=== PATIENT | female | born 1940 | race Caucasian/White ===

== ENCOUNTER 2019-11-21 05:08 | Inpatient (IN) | payer MEDICARE, OTHER, SELFPAY ==
[2019-11-21] VITALS (8 sets, daily range): BP systolic 141–170; BP diastolic 40–111; PULSE 74–88; RESP 16–20; TEMP 36.7–37.1; O2SAT 93–98; BMI 30.4; BMI 30.5
--- NOTE | 2019-11-21 03:00 | NURSING ---
Report provided by ED nurse from [facility] including negative COVID test done on 11/04, not rechecked by that facility. CXR showing BLL pneumonia, chest CT negative for PE, EKG NSR. Plts drawn there reported at 12,000. On 1L NC at facility, transport reported 3L NC, she is currently on 2L NC.
--- NOTE | 2019-11-21 05:45 | PCM.HP.STD ---
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 Patient presented to [facility] ED on 11/20/2019 and was transferred to our hospital because her platelet was 12,000 and hospitalist at [facility] was uncomfortable taking care of patient. 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 Schaefer who rounds at [facility]. Dr. Schaefer accepted to see patient in consult. In regards to patient's shortness of breath, patient was admitted at [facility] on 05 November 2019 and was discharged on 08 November 2019. She was admitted for pneumonia. Covid test during the presentation was negative. After discharge patient reported that she has stayed entirely home. However she follow-up with her PCP for after hospital discharge. She reported as soon as her discharge antibiotics was completed her shortness of breath came back. Associated with symptoms is nonproductive cough. She reported she is supposed to follow-up with a ice cream freezer assistant on November 26, 2019. On this presentation emergency department doctor at [facility] report that CAT scan showed bilateral consolidation which is not different from on a previous admission. PE was negative. Her BMP was unremarkable. Sodium was 138; potassium 4.1; chloride 103; CO2 25; BUN 17 and creatinine 0.7. Her glucose was 115. Hemoglobin at outside hospital reportedly was 10.2, white count was 7000 and a platelet was 12,000. Further she reports dark tarry stools for which her PCP put her on PPI. She reports a history of bleeding ulcer. Past Medical History Medical History: Medical History (Last Updated 11/21/19 @ 06:[address] Mirza Shi MD) Autoimmune hemolytic anemia (Acute) D59.1 Allergies Sulfa (Sulfonamide Antibiotics) Allergy (Verified 01/24/17 22:36) Hives ibuprofen Adverse Reaction (Verified 01/24/17 22:36) IT AFFECTS MY KIDNEYS Home Medications: Ambulatory Orders Medication Instructions Recorded Aspirin 81 mg PO DAILY 08/26/16 Calcium Carbonate [Calcium] 600 mg PO BID 08/26/16 Cyanocobalamin (Vitamin B-12) 2,500 mcg SL DAILY 08/26/16 [Vitamin B-12] Fluocinonide-E 0.05% Cream 1 dose TOPICAL DAILY PRN 08/26/16 Folic Acid 0.8 mg PO DAILY 08/26/16 Levothyroxine Sodium 125 mcg PO DAILY 08/26/16 Lisinopril [Prinivil] 5 mg PO DAILY 08/26/16 Omeprazole [Prilosec] 20 mg PO DAILY 08/26/16 Pramipexole Di-HCl [Mirapex] 0.125 mg PO DAILY PRN PRN 08/26/16 Temovate Solution 1 dose TOPICAL DAILY PRN 08/26/16 Trazodone HCl 100 mg PO QHS 08/26/16 predniSONE tablet 15 mg PO DAILY@0800 08/26/16 Acetaminophen [Acetaminophen ER] 1,300 mg PO Q8H PRN 01/24/17 Clobetasol Propionate/Emoll 50 gm TP DAILY 01/24/17 [Clobetasol Emollnt 0.05% Foam] Cyanocobalamin [Vitamin B12] 1,000 mcg IM QMONTH 01/24/17 Famciclovir [Famvir] 500 mg PO TID 01/24/17 Hydrocodone/Acetaminophen [[place] 1 each PO Q4H PRN PRN 01/24/17 5-325 Tablet] Ondansetron [Zofran Odt] 8 mg PO Q8H PRN PRN #10 tab 01/24/17 ALPRAZolam 0.25 mg PO TID PRN PRN 11/21/19 Amlodipine Besylate 5 mg PO DAILY 11/21/19 Atorvastatin Calcium 20 mg PO QHS 11/21/19 Calcium Carbonate 600 mg PO DAILY 11/21/19 Cefuroxime Axetil 250 mg PO BID 11/21/19 Ferrous Sulfate 325 mg PO DAILY 11/21/19 Melatonin 10 mg PO QHS 11/21/19 Probiotic Digestive Care 1 tab PO DAILY 11/21/19 Vitamin D3 125 mcg PO DAILY 11/21/19 Surgical History: hysterectomy, total knee arthroplasty, - - hiatal hernia repair Psychiatric History: No pertinent psych hx LANGUAGE ASSISTANT History: No pertinent LANGUAGE ASSISTANT history Smoking Status: Never smoker - *Family History Maternal History Items: Dementia Paternal History Items: Cancer - lung cancer Review of Systems Constitutional: Denies: Chills, Fever, Weight Change HEENT: Denies: Head Aches, Sinus Congestion, Sinus Drainage Cardiovascular: Denies: Chest Pain, Palpitations Respiratory: Reports: Cough, Shortness of Breath. Denies: Sputum production Gastrointestinal: Denies: Abdominal Pain, Nausea, Vomiting Genitourinary: Denies: Dysuria Musculoskeletal: Denies: Joint Pain, Joint Tenderness Skin: Denies: Rash, Wounds Neurological: Denies: Numbness, Tingling, Focal weakness Psychiatric: Denies: Anxiety, Depression, Homicidal Ideations, Suicidal Ideations Hematologic/ Lymphatic: Denies: Easy Bruising, Easy Bleeding VTE Information - Inpt Only VTE Present on Admission: No VTE Mechan Device Prophylaxis: SCD's VTE Pharm Prophylaxis ordered?: No Patient Problems: Active and Suspected Problems (Last Updated 11/21/19 @ 06:[address] Mirza Shi MD) Pneumonia (Acute) Autoimmune hemolytic anemia (Acute) - Physical Exam Vitals/I&O's: Weight: 75.659 kg Body Mass Index (BMI) 30.4 General: Alert, Oriented x3, Cooperative, - - Patient with profuse cough during examination. HEENT: Atraumatic, PERRLA, EOMI, Normocephalic Neck: Supple, No JVD, Negative Carotid Bruits Lungs: Clear to auscultation, Normal air movement Cardiovascular: Regular rate, Regular Rhythm, Normal S1, Normal S2, No murmurs Abdomen: Bowel Sounds Present, Soft, Non Tender Extremities: No edema, Capillary Refill Less than 3 Seconds Skin: No rashes, No breakdown Musculoskeletal: No Tenderness to Palpation of Joints or Extremities Neurological: Cranial nerves II-XII grossly intact Psych/Mental Status: Normal Affect, Appropriate Laboratory Results 11/21/19 05:30: COVID-19 (CHARLEEN) Pending Current Medications Acetaminophen (Tylenol) 650 mg PO Q6H PRN PRN PRN Reason: Pain Score 1-10/Temp > 100.7 F Albuterol Sulfate (Ventolin Aerosols) 2.5 mg INHALATION Q2H PRN PRN PRN Reason: Shortness of Breath/Wheezing Vancomycin IV Pharmacy to Dose (1 ea/ Sodium Chloride) 500 mls @ 250 mls/hr IV X1 PRN; Protocol PRN Reason: Rx to Dose Cefepime HCl 2 gm/ Sodium (Chloride) 100 mls @ 200 mls/hr IV Q8 DANIELLE Ondansetron HCl (Zofran) 4 mg IV Q8H PRN PRN PRN Reason: NAUSEA/VOMITING Assessment/Plan All Active Problems (Last Updated 11/21/19 @ 06:[address] 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 Community-acquired pneumonia Likely gram-positive or gram-negative Patient received ceftriaxone and azithromycin at outside hospital ED. Because of persistent pneumonia discussed with emergency department doctor to give patient vancomycin. Will order vancomycin and cefepime. Pneumonia antigen and Legionella urine antigen ordered. Albuterol PRN We will get a rapid covid screen. If rapid covid screen is negative okay to transfer from covid cohort unit as imaging is not classic for covid Will consult Dr. Rosas, ice cream freezer assistant for persistent pneumonia. Peptic ulcer disease Protonix ordered Trend CBC. If stable patient to follow-up with PCP on discharge. Autoimmune hemolytic anemia Hemoglobin of 12,000 at [facility] ED. Repeat CBC. Patient follows up with Dr. Schaefer. Will consult Dr. Schaefer DVT prophylaxis No chemical thromboprophylaxis at this time because of thrombocytopenia SCD ordered. Inpatient E&M: 42508 Init Hosp L3
[2019-11-21 07:03] LABS: Absolute Lymphocyte Count 0.65 X10^3/uL (0.83-4.51); Absolute Neutrophil Count 5.8 X10^3/uL (2.0-7.7); Basophil# 0.02 X10^3/uL; Basophil% 0.3 % (0-1); Eosinophil# 0.06 X10^3/uL; Eosinophils% 0.8 % (0-5); Hematocrit 23.7 % (37-47); Hemoglobin 8.6 g/dL (12.0-15.0); Lymphocyte # 0.65 X10^3/ul (4.0); Mean Corp Hgb Conc 36.3 g/dL (32-36); Mean Corpuscular Hgb 39.1 pg (27.0-32.0); Mean Corpuscular Volume 107.7 fL (81-99); Mean Platelet Vol. 12.5 fl (6.2-12.0); Monocyte# 0.68 X10^3/uL; Monocyte% 9.4 % (0-10); NRBC Flagged by Analyzer 0 % (0-5); Neutrophil # 5.78 X10^3/uL (2.7-7.7); Neutrophil % 80.1 % (47-70); POSITIVE COUNT YES; POSITIVE MORPHOLOGY YES; Platelet Count 8 K/mm3 (150-450); White Blood Count 7.2 K/mm3 (4.4-11.0)
[2019-11-21 07:06] LABS: Anion Gap 5 (5-15); BUN 13 mg/dL (7-18); BUN/Creat Ratio 20.2 RATIO (10-20); Calcium,Total 7.6 mg/dL (8.5-10.1); Chloride 107 mmol/L (98-107); Creatinine, Serum 0.64 mg/dL (0.55-1.02); EST Glomerular Filtration Rate 95 mL/min (>60); Est Glom Filt Rate - Afr Amer 115 mL/min (>60); Estimated Creatinine Clearance 37.26 ml/min; Glucose 99 mg/dL (74-106); Potassium 3.7 mmol/L (3.5-5.1); Sodium Level 140 mmol/L (136-145)
[2019-11-21 07:43] LABS: Differential Indicated SCAN CRITERIA MET; Platelet Estimate MKD DEC (ADEQ)
[2019-11-21 07:44] LABS: Anisocytosis RARE; Hypochromasia 1+
--- NOTE | 2019-11-21 07:55 | PCM.CONS.B ---
Problem List (1) Autoimmune hemolytic anemia Status: Chronic (2) Acute idiopathic thrombocytopenic purpura Status: Acute (3) Anemia Status: Acute Qualifiers: Anemia type: unspecified type Qualified Code(s): D64.9 - Anemia, unspecified Comment: Bleeding secondary to thrombocytopenia - Consult Date of Consult: 11/21/[address] Shi for patient with history of autoimmune hemolytic anemia and thrombocytopenia. My final recommendation will be communicated through electronic medical record and also to the ICU team. - Reason for Consult History of present illness The patient is a 78 year old F with a significant history of autoimmune hemolytic anemia who presents with 2 to 3 weeks history of shortness of breath. Recently discharged home from pulmonary and hospital last week for pneumonia. She was on multiple antibiotic including vancomycin and Rocephin for treatment of her pneumonia. She was discharged home and subsequently presented to [facility] ED on 11/20/2019 and was transferred to our hospital because her platelet was 12,000 and hemoglobin of 10.2. Her COVID test last month was negative After discharge patient reported that she has stayed entirely home. However she follow-up with her PCP for after hospital discharge. She reported as soon as her antibiotics was completed her shortness of breath came back. Associated with symptoms is non-productive cough. No hemoptysis but last week he also complained of epigastric discomfort along with passing dark tarry stool. She has shortness of breath with exertion. Denies jaundice or petechiae rash. At her presentation to [facility], her CAT scan showed bilateral consolidation which is not different from on a previous admission. PE was negative. Her BMP was unremarkable. Sodium was 138; potassium 4.1; chloride 103; CO2 25; BUN 17 and creatinine 0.7. Her glucose was 115. Hemoglobin at outside hospital reportedly was 10.2, white count was 7000 and a platelet was 12,000. Further she reports dark tarry stools for which her PCP put her on PPI. She reports a history of bleeding ulcer. Past Medical History Medical History: Medical History (Last Updated 11/21/19 @ 06:[address] Mirza Shi MD) Autoimmune hemolytic anemia (Acute) D59.1 Allergies Sulfa (Sulfonamide Antibiotics) Allergy (Verified 01/24/17 22:36) Hives ibuprofen Adverse Reaction (Verified 01/24/17 22:36) IT AFFECTS MY KIDNEYS Home Medications: Ambulatory Orders Medication Instructions Recorded Aspirin 81 mg PO DAILY 08/26/16 Calcium Carbonate [Calcium] 600 mg PO BID 08/26/16 Cyanocobalamin (Vitamin B-12) 2,500 mcg SL DAILY 08/26/16 [Vitamin B-12] Fluocinonide-E 0.05% Cream 1 dose TOPICAL DAILY PRN 08/26/16 Folic Acid 0.8 mg PO DAILY 08/26/16 Levothyroxine Sodium 125 mcg PO DAILY 08/26/16 Lisinopril [Prinivil] 5 mg PO DAILY 08/26/16 Omeprazole [Prilosec] 20 mg PO DAILY 08/26/16 Pramipexole Di-HCl [Mirapex] 0.125 mg PO DAILY PRN PRN 08/26/16 Temovate Solution 1 dose TOPICAL DAILY PRN 08/26/16 Trazodone HCl 100 mg PO QHS 08/26/16 predniSONE tablet 15 mg PO DAILY@0800 08/26/16 Acetaminophen [Acetaminophen ER] 1,300 mg PO Q8H PRN 01/24/17 Clobetasol Propionate/Emoll 50 gm TP DAILY 01/24/17 [Clobetasol Emollnt 0.05% Foam] Cyanocobalamin [Vitamin B12] 1,000 mcg IM QMONTH 01/24/17 Famciclovir [Famvir] 500 mg PO TID 01/24/17 Hydrocodone/Acetaminophen [[place] 1 each PO Q4H PRN PRN 01/24/17 5-325 Tablet] Ondansetron [Zofran Odt] 8 mg PO Q8H PRN PRN #10 tab 01/24/17 ALPRAZolam 0.25 mg PO TID PRN PRN 11/21/19 Amlodipine Besylate 5 mg PO DAILY 11/21/19 Atorvastatin Calcium 20 mg PO QHS 11/21/19 Calcium Carbonate 600 mg PO DAILY 11/21/19 Cefuroxime Axetil 250 mg PO BID 11/21/19 Ferrous Sulfate 325 mg PO DAILY 11/21/19 Melatonin 10 mg PO QHS 11/21/19 Probiotic Digestive Care 1 tab PO DAILY 11/21/19 Vitamin D3 125 mcg PO DAILY 11/21/19 Surgical History: hysterectomy, total knee arthroplasty, - - hiatal hernia repair Psychiatric History: No pertinent psych hx 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 Denies: Sputum production Gastrointestinal: Denies: Abdominal Pain, Nausea, Vomiting Genitourinary: Denies: Dysuria Musculoskeletal: Denies: Joint Pain, Joint Tenderness Skin: Denies: Rash, Wounds Neurological: Denies: Numbness, Tingling, Focal weakness Psychiatric: Denies: Anxiety, Depression, Homicidal Ideations, Suicidal Ideations Hematologic/ Lymphatic: Denies: Easy Bruising, Easy Bleeding VTE Information - Inpt Only VTE Present on Admission: No VTE Mechan Device Prophylaxis: SCD's VTE Pharm Prophylaxis ordered?: No Patient Problems: Active and Suspected Problems (Last Updated 11/21/19 @ 06:[address] Mirza Shi MD) Pneumonia (Acute) Autoimmune hemolytic anemia (Acute) - Physical Exam Vitals/I&O's: Weight: 75.659 kg Body Mass Index (BMI) 30.4 Laboratory Results - last 24 hr 11/21/19 11/21/19 11/21/19 05:30 06:38 06:38 WBC 7.2 RBC 2.20 L Hgb 8.6 L Hct 23.7 L MCV 107.7 H MCH 39.1 H MCHC 36.3 H RDW Std Deviation Not Reportable RDW Coeff of Isis Not Reportable Plt Count 8 L* MPV 12.5 H Immature Gran % (Auto) 0.400 Neut % (Auto) 80.1 H Lymph % (Auto) 9.0 L [place] % (Auto) 9.4 Eos % (Auto) 0.8 Baso % (Auto) 0.3 Absolute Neuts (auto) 5.8 Absolute Lymphs (auto) 0.65 L Nucleated RBC % 0 Diff Path Review May foll Platelet Estimate MKD DEC Hypochromasia 1+ Anisocytosis RARE Sodium 140 Potassium 3.7 Chloride 107 Carbon Dioxide 28.0 Anion Gap 5 BUN 13 Creatinine 0.64 Estim Creat Clear Calc 37.26 Est GFR (MDRD) Af Amer 115 Est GFR (MDRD) Non-Af 95 BUN/Creatinine Ratio 20.2 H Glucose 99 Calcium 7.6 L COVID-19 (CHARLEEN) Not Detected Laboratory Results 11/21/19 05:30: COVID-19 (CHARLEEN) Pending Current Medications Acetaminophen (Tylenol) 650 mg PO Q6H PRN PRN PRN Reason: Pain Score 1-10/Temp > 100.7 F Albuterol Sulfate (Ventolin Aerosols) 2.5 mg INHALATION Q2H PRN PRN PRN Reason: Shortness of Breath/Wheezing Vancomycin IV Pharmacy to Dose (1 ea/ Sodium Chloride) 500 mls @ 250 mls/hr IV X1 PRN; Protocol PRN Reason: Rx to Dose Cefepime HCl 2 gm/ Sodium (Chloride) 100 mls @ 200 mls/hr IV Q8 DANIELLE Ondansetron HCl (Zofran) 4 mg IV Q8H PRN PRN PRN Reason: NAUSEA/VOMITING Assessment/Plan All Active Problems (Last Updated 11/21/19 @ 06:[address] Mirza Shi MD) Anemia (Acute) Acute ITP (Acute) Pneumonia (Acute) Autoimmune hemolytic anemia (Acute) 78-year-old female with history of autoimmune hematic anemia and acute ITP ending with bilateral pneumonia and GI bleeding apply secondary to thrombocytopenia. Recommendations -Check PT/PTT, reticulocyte, liver function, indirect bilirubin, haptoglobin & Direct Hernan -Start IVIG 400mg/kg ideal body weight IV daily x 5 - T & C 2 unit pheresis platelets for transfusion this morning. -Continue folic acid 1mg daily -Consult GI for GI bleeding? -Continue PPI cc: Dr. Kati Schaefer, Dr. Stanislav Crowe, Dr. Merrill Car
[2019-11-21 08:55] LABS: Immature Platelet Fraction 14.2 % (1.0-7.9); Platelet Count 7 K/mm3 (150-450); RET-HE 31.7 pg (30-35); Reticulocyte Count 2.79 % (0.5-1.5)
[2019-11-21 09:08] LABS: AST(SGOT) 20 U/L (15-37); Alanine Aminotransfer ALT/SGPT 8 U/L (13-56); Albumin, Serum 2.2 g/dL (3.2-5.0); Alkaline Phosphatase 116 U/L (45-117); Globulin 3.1 g/dL (2.2-4.2); LDH 324 U/L (84-246); Protein, Total 5.3 g/dL (6.4-8.2)
[2019-11-21 09:28] LABS: International Normalized Ratio 1.1; Prothrombin Time (Protime)PT. 13.5 SECONDS (11.7-14.9)
[2019-11-21 09:29] LABS: Partial Thromboplast Time 24.6 Seconds (24.1-36.2)
[2019-11-21] MEDS: amLODIPine 5 MG Tablet PO (09:31)
[2019-11-21] MEDS: Pantoprazole Sodium 40 MG Tablet PO (09:31)
[2019-11-21] MEDS: Ferrous Sulfate 325 MG Tablet PO (09:31)
[2019-11-21] MEDS: Calcium (Elemental) 500 MG Tablet PO (09:31)
[2019-11-21] MEDS: guaiFENesin 1,200 MG Tablet 1200 MG PO (09:31)
--- NOTE | 2019-11-21 10:45 | PCM.RX.CS ---
Consult Pharmacy has been consulted to manage selected antiobiotic: Vancomycin Type of Consult: New start Suspected Infection: Pneumonia Prior Doses of Antibiotics Received/Current Regimen: received 1000mg IV x1 at 02:25 this morning at previous hospital Labs: Sodium 140 mmol/L (136-145) 11/21/19 06:38 Potassium 3.7 mmol/L (3.5-5.1) 11/21/19 06:38 Chloride 107 mmol/L (98-107) 11/21/19 06:38 Carbon Dioxide 28.0 mmol/L (21.0-32.0) 11/21/19 06:38 Anion Gap 5 (5-15) 11/21/19 06:38 BUN 13 mg/dL (7-18) 11/21/19 06:38 Creatinine 0.64 mg/dL (0.55-1.02) 11/21/19 06:38 Est GFR (MDRD) Af Amer 115 mL/min (>60) 11/21/19 06:38 Est GFR (MDRD) Non-Af 95 mL/min (>60) 11/21/19 06:38 BUN/Creatinine Ratio 20.2 RATIO (10-20) H 11/21/19 06:38 Glucose 99 mg/dL (74-106) 11/21/19 06:38 Microbiology: Microbiology 11/21/19 06:55 Urine Catheter - Catheter Streptococcus pneumoniae Antigen (M - Final 11/21/19 06:55 Urine Catheter - Catheter Legionella Antigen - Final Weight used for dosin.7 kg Estimated Creatinine Clearance: 56ml/min Goal Trough: 15-20 mcg/mL Pharmacy Plan for Drug Dosing: Will continue with 750mg IV q12h starting 12 hours after the 1000mg dose that was given at the previous hospital. Will check a trough level before the 4th total dose tomorrow afternoon. The patient's CrCl of 56ml/min was calculated using an adjusted body weight of 60.3kg. Pharmacy Service will continue to monitor and adjust dosing as required. Follow-Up Labs: Trough Vancomycin Labs to be done on [date and time ordered]: 11/21 13:30
--- NOTE | 2019-11-21 11:03 | NT.THERAPY_ITS ---
Nutrition Therapy Report - History Current diet / nutrition support order:: regular diet - Anthropometric Measurements Height:: 5 ft 2 in Weight:: 75.659 kg Body Mass Index (BMI):: 30.4 - Relevant Labs Relevant Labs:: RBC 2.20 M/mm3 (4.2-5.4) L 11/21/19 06:38 Hgb 8.6 g/dL (12.0-15.0) L 11/21/19 06:38 Hct 23.7 % (37-47) L 11/21/19 06:38 MCV 107.7 fL (81-99) H 11/21/19 06:38 MCH 39.1 pg (27.0-32.0) H 11/21/19 06:38 MCHC 36.3 g/dL (32-36) H 11/21/19 06:38 Plt Count 8 K/mm3 (150-450) L* 11/21/19 06:38 MPV 12.5 fl (6.2-12.0) H 11/21/19 06:38 Neut % (Auto) 80.1 % (47-70) H 11/21/19 06:38 Lymph % (Auto) 9.0 % (19-41) L 11/21/19 06:38 Absolute Lymphs (auto) 0.65 X10^3/uL (0.83-4.51) L 11/21/19 06:38 Immature Plt Fraction 14.2 % (1.0-7.9) H 11/21/19 08:36 Retic Count 2.79 % (0.5-1.5) H 11/21/19 08:36 BUN/Creatinine Ratio 20.2 RATIO (10-20) H 11/21/19 06:38 Calcium 7.6 mg/dL (8.5-10.1) L 11/21/19 06:38 ALT 8 U/L (13-56) L 11/21/19 08:36 Lactate Dehydrogenase 324 U/L (84-246) H 11/21/19 08:36 Total Protein 5.3 g/dL (6.4-8.2) L 11/21/19 08:36 Albumin 2.2 g/dL (3.2-5.0) L 11/21/19 08:36 - Assessment Food / Nutrition-Related History:: Spoke w/ pt via room phone- currently in isolation precautions. 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 Was hospitalized from 11/04-11/07 per H&P. States she normally eats well and does not follow a special diet at home. UBW 174# w/ recent wt loss r/t acute illness. CBW 166.8#- 4% wt loss x 2 weeks, significant for acute malnutrition. - Nutrition Diagnosis Problem / Etiology / Signs & Symptoms (PES):: Severe, acute malnutrition related to inadequate protein-energy intake during acute illness as evidenced by estimated PO intake meeting <50% of pt's estimated nutritional needs for greater than 5 days, 7.2#/4% wt loss x 2 weeks Evidence of Malnutrition Exists:: Yes Severe PCM:: Acute Illness - Nutrition Intervention Nutrition Prescription:: [id number] calories/day, 65-75 g protein/day - Food / Nutrient Delivery Interventions Summary of nutrition intervention:: pt agreeable to Ensure BID w/ meals; would prefer chocolate or strawberry. Will continue regular diet as tolerated. Nutrition support ordered as / adjusted to:: ensure enlive 240mL w/ breakfast and dinner; continue regular diet. Nutrition education provided?: No - MNT Monitoring Further MNT monitoring and evaluation required?: Yes MNT Follow-up in:: 3-5 days
--- NOTE | 2019-11-21 11:41 | PCM.DC.SUM ---
Discharge Date and Diagnosis - Problem List Patient Problems: Active and Suspected Problems (Last Updated 11/21/19 @ 08:15 by Blanka Tuesday) Pneumonia (Acute) Acute idiopathic thrombocytopenic purpura (Acute) Date of Admission: 11/21/19 Date of Discharge: 11/21/19 - Primary Discharge Diagnosis Acute Problems: Active Problems (Last Updated 11/21/19 @ 08:15 by Blanka Tuesday) Pneumonia (Acute) Acute idiopathic thrombocytopenic purpura (Acute) - Secondary Discharge Diagnosis Chronic Problems: Chronic Problems (Last Updated 11/21/19 @ 08:15 by Blanka Tuesday) Autoimmune hemolytic anemia (Chronic) Hospital Course and Treatment Operations: None Procedures: None Summary of Care Provided: The patient is a 78 year old F presents to [facility] with increasing shortness of breath. Patient was admitted in October with pneumonia and was discharged. Patient was feeling short of breath and then sent back to their emergency room where he had pneumonia. Patient was also found to have platelets of 12,000. Dr. Schaefer, of hematology, was contacted and agreed to see the patient in consultation. Patient was transferred here to continue with treatment and for evaluation of the thrombocytopenia. Patient had lab work today that showed platelets down to 8000. Dr. Schaefer was concern for ITP and recommended IVIG, and a 2 pack of platelets. He did not recommend steroids at this time. Patient was complaining of melena and he advised GI consultation. Since we do not have gastroenterology at this facility, general surgery was contacted and given the complexity with the ITP felt the patient should be transferred to a tertiary facility. I spoke with the patient and then with her daughter over the phone about these recommendations and they want the patient transferred to a [facility] facility. I recommended [facility] over the main campus. They agreed and I spoke with the accepting physician, , who agreed to accept the patient at [facility]. Patient has remained stable though her hemoglobin dropped from 10.2-8.6. Patient has been continued on antibiotics with cefepime and vancomycin. IVIG has been ordered but not been administered nor have the platelets. We will continue to monitor the patient patient would not be able to go to [facility] patient was made aware of this. [] Patient Problems: Active and Suspected Problems (Last Updated 11/21/19 @ 08:15 by Blanka Tuesday) Pneumonia (Acute) Acute idiopathic thrombocytopenic purpura (Acute) - Physical Exam Vitals/I&O's: Vital Signs Temp Pulse Resp BP Pulse Ox 37.1 C 77 20 H 168/50 H 94 11/21/19 08:08 11/21/19 08:08 11/21/19 08:08 11/21/19 08:08 11/21/19 09:13 Oxygen Flow Rate (L/min) 2 Oxygen Delivery Method Nasal Cannula Weight: 75.659 kg Body Mass Index (BMI) 30.4 Intake and Output for Last 24 Hours 11/19/19 11/20/19 11/21/19 23:59 23:59 23:59 Intake Total 214.55 / 214.55 Output Total 300 / 300 Balance -85.45 / -85.45 General: Alert, No apparent distress, - - tearful HEENT: Atraumatic, Normocephalic Oral: Moist Mucosa, No Gingival or Mucosal Lesions/ Ulcerations Neck: No Nodes, Thyroid Normal Size and Texture Lungs: - - bibasilar crackles Cardiovascular: Regular rate, Regular Rhythm, Normal S1, Normal S2, No murmurs Abdomen: Bowel Sounds Present, Soft, Non Tender, Non-Distended, No Hepato-splenomegaly Extremities: No edema, No Calf Tenderness Psych/Mental Status: Normal Affect, Appropriate Microbiology Past 72 Hours 11/21/19 06:55 Urine Catheter - Catheter Streptococcus pneumoniae Antigen (M - Final 11/21/19 06:55 Urine Catheter - Catheter Legionella Antigen - Final Laboratory Results 11/21/19 05:30: COVID-19 (CHARLEEN) Not Detected 11/21/19 06:38: WBC 7.2, RBC 2.20 L, Hgb 8.6 L, Hct 23.7 L, MCV 107.7 H, MCH 39.1 H, MCHC 36.3 H, RDW Std Deviation Not Reportable, RDW Coeff of Isis Not Reportable, Plt Count 8 L*, MPV 12.5 H, Immature Gran % (Auto) 0.400, Neut % (Auto) 80.1 H, Lymph % (Auto) 9.0 L, [place] % (Auto) 9.4, Eos % (Auto) 0.8, Baso % (Auto) 0.3, Absolute Neuts (auto) 5.8, Absolute Lymphs (auto) 0.65 L, Nucleated RBC % 0, Diff Path Review May , Platelet Estimate MKD DEC, Hypochromasia 1+, Anisocytosis RARE 11/21/19 06:38: Sodium 140, Potassium 3.7, Chloride 107, Carbon Dioxide 28.0, Anion Gap 5, BUN 13, Creatinine 0.64, Estim Creat Clear Calc 37.26, Est GFR (MDRD) Af Amer 115, Est GFR (MDRD) Non-Af 95, BUN/Creatinine Ratio 20.2 H, Glucose 99, Calcium 7.6 L 11/21/19 06:55: MRSA (PCR) Pending 11/21/19 08:36: PT 13.5, INR 1.1, APTT 24.6 11/21/19 08:36: Immature Plt Fraction 14.2 H, Retic Count 2.79 H, Immature Retic Fraction 15.70, Retic Hgb Equivalent 31.7 11/21/19 08:36: Total Bilirubin 0.60, Direct Bilirubin 0.10, AST 20, ALT 8 L, Alkaline Phosphatase 116, Lactate Dehydrogenase 324 H, Total Protein 5.3 L, Albumin 2.2 L, Globulin 3.1 11/21/19 09:20: Haptoglobin Pending 11/21/19 09:20: Direct Antiglob Test Pending 11/21/19 09:20: Blood Type Cancelled Current Medications Acetaminophen (Tylenol) 650 mg PO Q6H PRN PRN PRN Reason: Pain Score 1-10/Temp > 100.7 F Albuterol Sulfate (Proair Hfa (Sp) Surgery/Vent Pts) 1 puff INHALATION Q4H PRN PRN PRN Reason: sob/wheezing Alprazolam (Xanax) 0.25 mg PO TID PRN PRN PRN Reason: ANXIETY Amlodipine Besylate (Norvasc) 5 mg PO DAILY [facility] Last Admin: 11/21/19 09:31 Dose: 5 mg Documented by: Atorvastatin Calcium (Lipitor) 20 mg PO QHS [facility] Calcium Carbonate (Os-Familia 500) 500 mg PO DAILY [facility] Last Admin: 11/21/19 09:31 Dose: 500 mg Documented by: Cholecalciferol (Vitamin D (25mcg)) 5,000 unit PO DAILY [facility] Last Admin: 11/21/19 09:30 Dose: 5,000 unit Documented by: Ferrous Sulfate (Ferrous Sulfate) 325 mg PO DAILY [facility] Last Admin: 11/21/19 09:31 Dose: 325 mg Documented by: Guaifenesin (Mucinex) 1,200 mg PO BID [facility] Last Admin: 11/21/19 09:31 Dose: 1,200 mg Documented by: Vancomycin IV Pharmacy to Dose (1 ea/ Sodium Chloride) 500 mls @ 250 mls/hr IV X1 PRN; Protocol PRN Reason: Rx to Dose Cefepime HCl 2 gm/ Sodium (Chloride) 100 mls @ 200 mls/hr IV Q8 [facility] Last Infusion: 11/21/19 08:06 Dose: Infused Documented by: Sodium Chloride () 250 mls @ 15 mls/hr IV .[id number] PRN PRN Reason: Saline Flush Last Infusion: 11/21/19 06:54 Dose: 0 mls/hr Documented by: Immune Globulin 20 gm/ N/A 200 mls @ 25 mls/hr IV DAILY [facility]; Protocol Stop: 11/25/19 17:59 Last Infusion: 11/21/19 11:17 Dose: 50 mls/hr Documented by: Vancomycin HCl 750 mg/ Sodium (Chloride) 265 mls @ 250 mls/hr IV Q12H [facility] Melatonin (Melatonin) 10 mg PO QHS [facility] Ondansetron HCl (Zofran) 4 mg IV Q8H PRN PRN PRN Reason: NAUSEA/VOMITING Pantoprazole Sodium (Protonix) 40 mg PO DAILY [facility] Last Admin: 11/21/19 09:31 Dose: 40 mg Documented by: Sodium Chloride () 10 - 40 ml IV UD PRN PRN Reason: SALINE FLUSH Discharge Diet: No Restrictions Discharge Activity: Return to Normal Activity Home Medications: Medications to take at Discharge Aspirin 81 mg PO DAILY 08/26/16 Calcium Carbonate [Calcium] 600 mg PO BID 08/26/16 Cyanocobalamin (Vitamin B-12) [Vitamin B-12] 2,500 mcg SL DAILY 08/26/16 Fluocinonide-E 0.05% Cream 1 dose TOPICAL DAILY PRN 08/26/16 Folic Acid 0.8 mg PO DAILY 08/26/16 Levothyroxine Sodium 125 mcg PO DAILY 08/26/16 Lisinopril [Prinivil] 5 mg PO DAILY 08/26/16 Omeprazole [Prilosec] 20 mg PO DAILY 08/26/16 Pramipexole Di-HCl [Mirapex] 0.125 mg PO DAILY PRN PRN 08/26/16 Temovate Solution 1 dose TOPICAL DAILY PRN 08/26/16 Trazodone HCl 100 mg PO QHS 08/26/16 predniSONE tablet 15 mg PO DAILY@0800 08/26/16 Acetaminophen [Acetaminophen ER] 1,300 mg PO Q8H PRN 01/24/17 Clobetasol Propionate/Emoll [Clobetasol Emollnt 0.05% Foam] 50 gm TP DAILY 01/24/17 Cyanocobalamin [Vitamin B12] 1,000 mcg IM QMONTH 01/24/17 Famciclovir [Famvir] 500 mg PO TID 01/24/17 Hydrocodone/Acetaminophen [[place] 5-325 Tablet] 1 each PO Q4H PRN PRN 01/24/17 Ondansetron [Zofran Odt] 8 mg PO Q8H PRN PRN #10 tab 01/24/17 ALPRAZolam 0.25 mg PO TID PRN PRN 11/21/19 Amlodipine Besylate 5 mg PO DAILY 11/21/19 Atorvastatin Calcium 20 mg PO QHS 11/21/19 Calcium Carbonate 600 mg PO DAILY 11/21/19 Cefuroxime Axetil 250 mg PO BID 11/21/19 Ferrous Sulfate 325 mg PO DAILY 11/21/19 Melatonin 10 mg PO QHS 11/21/19 Probiotic Digestive Care 1 tab PO DAILY 11/21/19 Vitamin D3 125 mcg PO DAILY 11/21/19 Primary Care Physician: Stanislav Crowe MD [Primary Care Provider] - Disposition: Acute care Hospital Minutes spent on discharge:: 45 Patient Condition:: Good Medical Necessity - Tobacco Use Smoking Status: Never smoker Meaningful Use Info Meaningful Use Diagnoses (Choose all that apply): None applicable Inpatient E&M: 66960 Disch Hosp
--- NOTE | 2019-11-21 12:32 | NURSING ---
[facility] Eva BARCENAS TOOK PATIENT'S PURSE PER PATIENT'S REQUEST DUE TO IMPENDING PATIENT TRANSFER TO GIVE TO PATIENT'S DAUGHTER, SHANITA.
[2019-11-21 14:03] LABS: Hematocrit 23.3 % (37-47); Hemoglobin 8.5 g/dL (12.0-15.0)
[2019-11-21 16:31] LABS: M R Staph aureus DNA By PCR Negative (Negative); Probe Check PASS; Specimen Processing Control PASS
--- NOTE | 2019-11-21 17:43 | NURSING ---
Report called to INÉS Snider at [facility] for impending transport at this time.
[2019-11-22 12:09] LABS: Pathologist Review Reviewed
[2019-11-22 14:04] LABS: Haptoglobin 217 mg/dL (42-346)
== END 2019-11-21 18:20 | disposition short-term general hospital (02) | DRG 813 ==
PROVIDERS: Internal Medicine Hematology & Oncology; Admitting Provider Hospitalist; PCP Internal Medicine
DX: D69.3 Immune thrombocytopenic purpura (principal); J18.9 Pneumonia, unspecified organism; D59.1 Other autoimmune hemolytic anemias; K92.1 Melena; K27.9 Peptic ulcer, site unspecified, unspecified as acute or chronic, without hemorrhage or perforation; E11.9 Type 2 diabetes mellitus without complications; Z79.82 Long term (current) use of aspirin; Z79.890 Hormone replacement therapy; Z79.899 Other long term (current) drug therapy
CPT/HCPCS: 80048; 80076; 83010; 83615; 85014; 85018; 85025; 85045; 85610; 85730; 86880; 86900; 86901; 86965; 87040; 87449; 87635; 87641; J7050; P9037; J1568; U0003

== ENCOUNTER → 2020-02-25 14:45 | Outpatient (CLI) | payer MEDICARE, OTHER, SELFPAY ==
--- NOTE | 2020-02-25 14:45 | CT_ITS ---
STUDY: CT CHEST WITH CONTRAST REASON FOR EXAM: Female, 79 years old. Mediastinal lymphadenopathy, abnormal chest CT RADIATION DOSAGE (If Supplied By Facility): CTDIvol = ( 15.48 ) mGy, DLP = ( 371.39 ) mGycm TECHNIQUE: Transaxial imaging was performed following intravenous administration of IV 100mL Isovue-300. Individualized dose optimization techniques were used for this CT. COMPARISON: None. FINDINGS: The lungs are normal. There is no demonstrated pleural abnormality. Normal heart and pericardium. Moderate-sized hiatal hernia. Some small normal-sized mediastinal lymph nodes but no lymphadenopathy. Normal hilar regions. Normal enhanced pulmonary arteries. Normal aorta arch and descending thoracic aorta. Normal osseous structures. Status post cholecystectomy. CT/Chest WITH Contrast IMPRESSION: Normal enhanced CT Chest examination. Some small normal-sized mediastinal lymph nodes but no lymphadenopathy. Electronically Signed: Brendan Barroso MD at 16:14 EST Tel , Service support ,
== END ==
PROVIDERS: PCP Internal Medicine; Referring Provider Internal Medicine Critical Care Medicine; Visit Provider Internal Medicine Critical Care Medicine
DX: R59.0 Localized enlarged lymph nodes (principal)
CPT/HCPCS: 71260; Q9967; A4216

== ENCOUNTER → 2020-04-16 07:32 | Outpatient (CLI) | payer MEDICARE, OTHER, SELFPAY ==
[2020-04-16] MEDS: 0.9% NaCl IVPB Med Flush (250 mL) 15 ML IV (08:50)
[2020-04-16] MEDS: DiphenhydrAMINE 50 MG/ML Syringe IV (08:53)
[2020-04-16] MEDS: Acetaminophen 325 MG Tablet 650 MG PO (08:53)
[2020-04-16 09:00] VITALS: BP 153/73; PULSE 81; RESP 16; TEMP 36.2; O2SAT 95; BMI 28.5
[2020-04-16] MEDS: Immune Globulin 20 gm Premixed Solution 25 BAG IV (09:28)
[2020-04-16] MEDS: Immune Globulin 20 gm Premixed Solution 150 BAG IV (12:12)
[2020-04-16] MEDS: Immune Globulin 10 gm Premixed Solution 200 BAG IV (13:36)
== END ==
PROVIDERS: PCP Internal Medicine; Referring Provider Internal Medicine Hematology & Oncology; Visit Provider Internal Medicine Hematology & Oncology
DX: Z51.89 Encounter for other specified aftercare (principal); D69.41 Evans syndrome; D69.3 Immune thrombocytopenic purpura
CPT/HCPCS: 96365; 96366 ×4; 96375; 86900; 86901; J7050; A4216; J1568

== ENCOUNTER → 2022-04-08 | Outpatient (CLI) | payer MEDICARE, OTHER, SELFPAY ==
--- NOTE | 2022-04-08 13:31 | CT_ITS ---
INDICATION: STAGING COLON CANCER IV CONTRAST ONLY -- COMPARE TO [facility] 10-26-21 11-12-21 EXAMINATION: CT CHEST WITH CONTRAST - CT Chest W/ Contrast Injection TECHNIQUE: Helically acquired images were obtained of the chest following IV contrast. A radiation dose optimization technique was used for this scan. IV Contrast dosage and agent: COMPARISON: None. FINDINGS: LUNGS, PLEURA AND LARGE AIRWAYS: There are new irregular nodular opacities in the right upper lobe and left upper lobe the largest measures approximately 10 mm in the left upper lobe posterior segment axial image #52, these nodules may represent metastatic lesions. No pleural effusion or thickening. No pneumothorax. THYROID: No thyroid lesions. HEART AND PERICARDIUM: Heart size is normal. No pericardial effusion. VESSELS: Thoracic aorta is not dilated. No aortic dissection. No obvious central pulmonary embolism although this study was not performed with the pulmonary embolism protocol. MEDIASTINUM AND MARGARITO: No mediastinal or hilar adenopathy. Esophagus is unremarkable. No hiatal hernia. UPPER ABDOMEN: No acute pathology. BONES: Multilevel degenerative disc disease. No suspicious lytic or blastic abnormality. CT/Chest WITH Contrast IMPRESSION: There are new irregular nodular opacities in the right upper lobe and left upper lobe the largest measures approximately 10 mm in the left upper lobe posterior segment axial image #52, these nodules may represent metastatic lesions. Electronically Signed: Irving Bell MD at 7:43 EST ,
[2022-04-08 14:51] LABS: CREATININE FINGERSTICK < 0.9 mg/dL (0.55-1.02); EGFR FINGERSTICK > 60.0000 mL/min (>60)
== END | disposition home or self-care (01) ==
LOC: CT 13:30
PROVIDERS: PCP Internal Medicine; Visit Provider Internal Medicine Hematology & Oncology
DX: K63.89 Other specified diseases of intestine (principal)
CPT/HCPCS: 71260; Q9967

== ENCOUNTER → 2022-04-13 | Outpatient (CLI) | payer MEDICARE, OTHER, SELFPAY ==
--- NOTE | 2022-04-13 09:04 | NM_ITS ---
CLINICAL: 81-year-old female with history of colorectal carcinoma. WHOLE BODY 99m Tc MDP RADIONUCLIDE BONE SCINTIGRAPHY COMPARISON: None available FINDINGS: Following the intravenous administration of 25.2 mCi of 99m Tc MDP, whole body bone images reveal: 1. Increased radiopharmaceutical concentration is defined in the acromioclavicular, medial glenohumeral compartments of both shoulders, the sternoclavicular compartment of the right shoulder, medial tibial compartment of the right knee, the bilateral wrists and left hand. 2. Facilitated uptake is noted in the left anterior first and right anterolateral seventh and eighth ribs. 3. The remaining skeletal structures are scintigraphically unremarkable with normal-appearing renal images and urinary bladder activity identified. The visualized left knee arthroplasty appears scintigraphically unremarkable. There is increased uptake noted in the proximal-distal sternum commensurate with previous median sternotomy. NM/Bone Scan Whole Body IMPRESSION: 1. The increase in uptake noted in the bilateral shoulders, the right knee, the right left wrists and left hand is consistent with degenerative arthrosis. 2. Visualized uptake noted in the bilateral anterior-anterolateral ribs is most consistent with trauma-fracture. 3. There is no scintigraphic evidence of diffuse axial skeletal metastatic disease on the current examination. Electronically Signed: Brendan Martino, at 21:56 EST ,
== END | disposition home or self-care (01) ==
LOC: NM 09:02
PROVIDERS: PCP Internal Medicine; Referring Provider Internal Medicine Hematology & Oncology; Visit Provider Internal Medicine Hematology & Oncology
DX: R13.10 Dysphagia, unspecified (principal); C18.9 Malignant neoplasm of colon, unspecified
CPT/HCPCS: 78306; A9503

== ENCOUNTER 2022-04-29 05:23 | Inpatient (IN) | payer MEDICARE, OTHER, SELFPAY ==
[2022-04-29] VITALS (31 sets, daily range): BP systolic 108–150; BP diastolic 36–53; PULSE 56–78; RESP 14–23; TEMP 36.2–36.8; O2SAT 94–100; BMI 27.8; BMI 28.0
--- NOTE | 2022-04-29 | IMM_PTH ---
PATIENT: EVE GARCIA LOC: [facility] U#:[id number] AGE/SX: 81/F ROOM: [facility] RE04/29/[address]: Dr. Addy Teran MD : 1940 BED: 1 DIS: 05/06/2022 SPEC #: [id number] RECD: 05/03/22 14:15 STATUS: ERI REQ #: [id number] ROHIT: 04/29/22 00:[address]: Addy Teran DEPT: IMMUNOHISTOCHEMISTRY RECD BY: Summer Marvin ENTERED: 05/03/22 14:17 SP TYPE: IMMUNO OTHR DR: MD Dr. Stanislav Rondon MD Dr. Derek Brown, DO Dr. Lee Ann Baggott, MD Dr. Tanmay Panchabhai, MD Christina Muller, [employer]-C Tissues: Right colon Procedures: MSH2 (add) MLH-1 (add) MSH6 (add) Anti-PMS2 (add) MANDUJANO-2 (add) KI-67 (add) P53 (add) HER-2-ADRIANA (initial) PHYSICIAN & [place] [id number] SPECIMEN INFORMATION: Tissue Source: Right colon Clinical Info: Cancer of hepatic flexure Specimen Number: [id number] #4 CPT code: 78265, 08404 x7 METHODOLOGY: Deparaffinized sections of prefer/formalin-fixed tissue or PAP/DQ stained slides are incubated with monoclonal/polyclonal antibodies/oligonucleotide probes. Localization is made via biotin free immunoperoxidase method. Appropriate controls are performed and reacted as expected. Results on target cell population are indicated in the following table: RESULTS: ANTIBODY / CLONE RESULT Block 4 Her-2neu (CB11) negative (1+) MANDUJANO-2 (SP21) positive MLH-1 (M1) negative MSH2 (25D12) positive MSH6 (44) positive PMS2 ([id number]) positive Ki-67 (30-9) positive, high P53 (DO-7) negative These tests were developed and their performance characteristics determined by [facility]. They may not have been cleared or approved by the U.S. Food and Drug Administration. The FDA has determined that such clearance or approval is not necessary. The above immunohistochemical/dualISH markers are ordered and reviewed by the Pathologist. 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 Result of Microsatellite Instability Study: Positive (loss of mismatch protein; microsatellite instability detected). Complete loss of MLH1. SJ:elza 05/04/2022
--- NOTE | 2022-04-29 | COL._PTH ---
PATIENT: EVE GARCIA LOC: [facility] U#:[id number] AGE/SX: 81/F ROOM: [facility] RE04/29/[address]: Dr. Addy Teran MD : 1940 BED: 1 DIS: 05/06/2022 SPEC #: [id number] RECD: 04/29/22 12:28 STATUS: ERI SENA #: [id number] ROHIT: 04/29/22 00:[address]: Addy Teran DEPT: SURGICAL PATHOLOGY RECD BY: Morris Pascual ENTERED: 04/29/22 12:28 SP TYPE: COLON OTHR DR: Dr. Stanislav Crowe MD Tissues: Colon, NOS Procedures: Surgery Specimen Level Comments: @ Specimen number changed from [id number] to [id number] @ on 04/29/22 at 1522 by RGOOD. HEADER OPERATION: ERAS, laparoscopic to open, hemicolectomy PRE-OP DIAGNOSIS: Primary cancer of hepatic flexure of colon TISSUE SUBMITTED: Right colon MICROSCOPIC DIAGNOSIS Right colon, hemicolectomy: Adenocarcinoma with mucinous differentiation. Tubular adenoma x3. Colonic and small intestinal donut, no pathologic diagnosis. See cancer summary in the comment section. SJ:rg 05/03/2022 COMMENT COLON CANCER SUMMARY Procedure: Right hemicolectomy Tumor site: Hepatic flexure as per clinical information. Tumor size: 7 x 10 x 1 cm Histologic type: Adenocarcinoma with mucinous differentiation. Histologic grade: grade 1 (well differentiated) Tumor extension: Tumor invades through the muscularis propria into pericolonic tissue. Margins: Margins are uninvolved by invasive carcinoma. The tumor is 20 cm away from the closest distal resection margin. Treatment effect: No known presurgical therapy. Lymphvascular invasion: Not identified Perineural invasion: Not identified Type of polyp in which invasive carcinoma arose: None identified Tumor deposits: Not identified Regional lymph nodes: Number of lymph nodes examined: 17 Number of lymph nodes involved: 0 Ancillary studies: Please refer to microsatellite instability study by IHC ([id number]) for complete details. Additional pathologic findings: - Tubular adenoma x3. - Extensive acute and chronic inflammation, histiocytic reaction adjacent to the tumor - Focal granulomatous inflammation, pericolonic adipose tissue. Special stains for acid fast bacilli and fungi are negative for organisms; matched controls are appropriate. PATHOLOGIC STAGE: pT3 pN0 pMx The above summary is in compliance with [employer] (CAP) Cancer Protocols Checklist and [place] Joint Committee on Cancer (AJCC), Staging Manual, 8th Ed. MICROSCOPIC DESCRIPTION Slides are reviewed. GROSS DESCRIPTION Received in fixative is one container labeled with the patient's name and designated right colon. The specimen consists of a right hemicolectomy specimen consisting of cecum with ascending colon and transverse colon and segment of small intestine. The appendix is not identified. Segment of cecum with attached pericolonic adipose tissue and omentum measures 44 cm in length and segment of small intestine with attached mesentery measures 26 cm in length. The cecum and ascending colon are dilated proximal to the tumor and measures up to 9 cm in diameter. 20 cm away from the distal resection margin, a circumferential ulcerated tumor mass is noted measuring 7 x 10 x 1 cm. Three smaller polyps are also noted measuring 0.3 to 0.6 cm in greatest dimension. The serosal surface reveals black dye discoloration over the tumor. This tumor is 6 cm away from ileocecal valve. The lumen contains fecal material and four intact tablets. More dictation will follow later. The pericolonic adipose tissue is fixed in lymph node revealing solution. / SJ:rg 04/29/2022 The serosal surface is ragged over the tumor and inked black. Also present in the container is a donut-shaped piece of tissue measuring 3 x 1.5 x 0.7 cm. Sections of pericolonic adipose tissue reveal multiple lymph nodes. The largest lymph node measures 0.5 cm in greatest dimension. The omentum measures 9 x 9 x 1 cm. Sections of omentum do not reveal any mass lesion. Home Aid sections are submitted as follows: 1 - donut, 2 - proximal and distal resection margins, 3 - polyps x3, 4-7 - tumor including inked serosal resection margin, 8 - ileocecal valve, small and largest intestine, 9 - omentum and one bisected lymph node, 10 - one bisected lymph node, 11 - multiple lymph nodes, 12 - multiple lymph nodes, 13 & 14 - more sections of tumor with inked serosal surface. / SJ:elza 04/30/2022 TC:0 Pericolonic adipose tissue is dissected again for lymph nodes. More sections are submitted as follows: 15 and 16 ? multiple possible lymph nodes. / 03/03/23 CPT: 95607, 31220, 76879 x2
--- NOTE | 2022-04-29 05:54 | EKG12_ITS ---
Test Reason : PRE-OP Blood Pressure : / mmHG Vent. Rate : 083 BPM Atrial Rate : 083 BPM P-R Int : 166 ms QRS Dur : 074 ms QT Int : 386 ms P-R-T Axes : 069 026 003 degrees QTc Int : 453 ms Normal sinus rhythm Nonspecific T wave abnormality Abnormal ECG Confirmed by KEHINDE PEREZ, JOHN ([id number]), video editor ISAURA BARAHONA ([id number]) on 05/05/2022 10:18:21 AM Referred By: Addy Teran Confirmed By:JOHN BUSBY MD
[2022-04-29] MEDS: Lactated Ringers 1,000 ML 40 ML IV (06:46)
[2022-04-29] MEDS: Gabapentin 600 MG Tablet PO (06:48)
[2022-04-29] MEDS: Acetaminophen 500 MG Tablet 1000 MG PO (06:48)
[2022-04-29 06:51] LABS: Bedside Glucose 130 mg/dL (74-106)
--- NOTE | 2022-04-29 06:51 | HP.PCM_ITS ---
History and Physical Date of Admission: 04/29/22 Intake Vital Signs ? 04/16/2214:57 Weight: 150 lb BP 105/61 Blood Pressure Location Lt brachial Position Sitting Respiration 17 Pulse 71 Pulse Source Monitor Pulse Oximetry (%) 100 Oxygen Delivery Method room air Intake Visit Reasons:?CSCOPE Chief Complaint: Colon cancer/cscope Is patient in pain?: No Allergies Sulfa (Sulfonamide Antibiotics) Allergy (Verified 04/16/22 14:58) Hivesibuprofen Adverse Reaction (Verified 04/16/22 14:58) IT AFFECTS MY KIDNEYS Medications calcium carbonate 600 mg calcium (1,500 mg) tablet 600 mg PO BID 08/26/16 [History Confirmed 04/16/22] folic acid 1 mg tablet 0.8 mg PO DAILY 08/26/16 [History Confirmed 04/16/22] omeprazole 20 mg capsule,delayed release 20 mg PO DAILY 08/26/16 [History Confirmed 04/16/22] trazodone 50 mg tablet 100 mg PO QHS Check with primary doctor 08/26/16 [History Confirmed 04/16/22] cyanocobalamin (vitamin B-12) 1,000 mcg/mL injection solution 1,000 mcg IM QMONTH 01/24/17 [History Confirmed 04/16/22] Lactobacillus rhamnosus GG 10 billion cell capsule (Culturelle) 1 cap PO DAILY 04/07/22 [History Confirmed 04/16/22] aspirin 81 mg tablet,delayed release 81 mg PO 04/07/22 [History Confirmed 04/16/22] atorvastatin 40 mg tablet 40 mg PO QHS 04/07/22 [History Confirmed 04/16/22] cholecalciferol (vitamin D3) 50 mcg (2,000 unit) capsule 50 mcg PO DAILY 04/07/22 [History Confirmed 04/16/22] clopidogrel 75 mg tablet (Plavix) 75 mg PO DAILY 04/07/22 [History Confirmed 04/16/22] ferrous sulfate 325 mg (65 mg iron) tablet 325 mg PO DAILY 04/07/22 [History Confirmed 04/16/22] furosemide 20 mg tablet 20 mg PO DAILY 04/07/22 [History Confirmed 04/16/22] levothyroxine 112 mcg capsule 112 mcg PO DAILY 04/07/22 [History Confirmed 04/16/22] melatonin 5 mg capsule 10 mg PO QHS PRN 04/07/22 [History Confirmed 04/16/22] metoprolol succinate 50 mg tablet,extended release 24 hr ea PO 04/07/22 [History Confirmed 04/16/22] multivitamin (Daily Multi-Vitamin tablet) 1 tab PO DAILY 04/07/22 [History Confirmed 04/16/22] polyethylene glycol 3350 17 gram/dose oral powder (Miralax) 4 g PO DAILY 04/07/22 [History Confirmed 04/16/22] potassium chloride 20 mEq/15 mL oral liquid 20 meq PO DAILY 04/07/22 [History Confirmed 04/16/22] pramipexole 0.125 mg tablet 0.125 mg PO DAILY 04/07/22 [History Confirmed 04/16/22] metronidazole 500 mg tablet See Rx Instructions PO DAILY #3 tabs 04/16/22 [Rx Confirmed 04/16/22] neomycin 500 mg tablet See Rx Instructions PO .COMPLEX #6 tabs 04/16/22 [Rx Confirmed 04/16/22] PFSH Medical History? Autoimmune hemolytic anemia Carotid artery stenosis Carpal tunnel syndrome Colon cancer Diverticulitis HTN (hypertension) Hx of reduction of open fracture Hyperlipidemia Hypothyroid Iron deficiency anemia due to chronic blood loss Lung nodules Moderate tricuspid regurgitation Osteoarthritis Other nonspecific abnormal finding of lung field synthroid induced DM Thrombocytopenia Surgical History? H/O: hysterectomy History of ankle surgery History of carpal tunnel release History of coronary artery bypass graft History of repair of hiatal hernia Family History? Brother?? Myocardial infarction Cancer ?? ? lungFather?? ,? 61 yrs Cancer ?? ? lungMother?? ,? 86 yrs Alzheimer disease Social History? household members:? none Smoking Status:? Never smoker alcohol intake:? never substance use type:? does not use HPI HPI HPI: Patient is an 81-year-old female with a hepatic flexure mass.? The patient had a recent open heart surgery over the summer.? There is an area of concern on a CT scan back then.? After her heart surgery she had a colonoscopy and this identified a circumferential mass in the hepatic flexure that was unable to be passed with the scope.? Biopsy revealed invasive adenocarcinoma.? This was likely partially obstructive.? Patient is complaining of right lower quadrant pain occasionally. ROS General General: Yes colon cancer HEENT HEENT: No difficulty swallowing or eye surgery Endo Endocrine: No thyroid cancer Cardio Cardiovascular: Yes heart disease; No pacemaker Exam Const General: cooperative Orientation: alert and oriented x3 HENMT Head: normal to inspection Neck Neck: normal visual inspection and full ROM Chest Chest palpation & inspection: normal inspection of the chest Resp Effort & Inspection: normal respiratory effort Auscultation: clear to auscultation bilaterally Cardio Rate: regular rate Rhythm: regular rhythm GI Inspection: non-distended Palpation: soft and nontender Skin General: no rashes or lesions noted Neuro General: patient alert and patient oriented x3 Extrem General: full ROM Psych Appearance: grossly normal Mental Status: mental status grossly normal Assessment and Plan Assessment and Plan (1) Primary cancer of hepatic flexure of colon: ?Status:?Acute ?Plan: The patient has a partially obstructing circumferential mass of the hepatic flexure.? I discussed laparoscopic right hemicolectomy with the patient in detail.? I discussed the risks of the procedure including but not limited to bleeding, infection, injury to surrounding organs such as the liver, bowel, ureter or kidney.? Patient understands all the risks and is willing to proceed with laparoscopic right ileocolectomy.? Patient was given bowel prep instructions as well as antibiotic bowel prep.? My project controls scheduler will call her early next week to schedule her for surgery.? This was discussed with the patient's daughter as well and they are in agreement.? I discussed postoperative care. Addy Teran MD Pager: [facility] [address] [place] [address], [address] [place] [address] Office: I have examined the patient and the H&P has been reviewed. There are no clinical changes since date of exam.
[2022-04-29 06:54] LABS: Potassium 3.8 mmol/L (3.5-5.1)
[2022-04-29] MEDS: BUPIVACAINE LIPOSOME/PF 20 ML VIAL OPERA.SITE (09:40)
[2022-04-29] MEDS: Naloxone 0.4 MG/ML Syringe IV (10:55)
--- NOTE | 2022-04-29 11:14 | CT_ITS ---
INDICATION: Acute mental status change, possible CVA EXAMINATION: CT BRAIN - CT Head Stroke Protocol W/O Contrast Injection TECHNIQUE: Multiple axial images were obtained of the head without intravenous contrast. A radiation dose optimization technique was used for this scan. IV Contrast dosage and agent: None. COMPARISON: FINDINGS: BRAIN PARENCHYMA: No intra- or extra-axial hemorrhage. No evidence of acute infarct. No intracranial mass or mass effect. There is preservation of the torres/white matter interface. Posterior fossa structures are unremarkable. CSF SPACES: Appropriate for age. No hydrocephalus. Basal cisterns are patent. CALVARIUM, SKULL BASE, PARANASAL SINUSES AND MASTOID AIR CELLS: Clear. No discrete lytic or blastic abnormalities. ORBITS: Both globes, extraocular muscles, optic nerves and retrobulbar fat appear unremarkable. ASPECTS Score for Acute Strokes: 10 CT/STROKE Brain/Head without Cont IMPRESSION: Age consistent changes, no acute findings N.B. : The above Results were Read Back by Tramaine Sapp MD to Jackson Sebastian MD, and understanding confirmed on 04/29/2022 11:42:26 (ET). Electronically Signed: Tramaine Sapp MD at 11:43 EST ,
--- NOTE | 2022-04-29 11:15 | CT_ITS ---
STUDY: CTA HEAD AND NECK WITH CONTRAST REASON FOR EXAM: Female, 81 years old. Acute mental status change, possible CVA RADIATION DOSAGE (If Supplied By Facility): CTDIvol = ( 21.91 ) mGy, DLP = ( 703.41 ) mGycm TECHNIQUE: CT angiography was performed with a multi-detector CT scanner. Data acquisition was obtained from the skull base through the vertex following intravenous administration of IV 100mL Isovue-370. MIP images were reconstructed from the axial data set. Post-processing of the angiographic images was performed, with multiplanar reformation and 3D reconstruction. Individualized dose optimization techniques were used for this CT. COMPARISON: No relevant priors. FINDINGS: Patient is intubated. Normal bilateral petrous carotid arteries. There is calcified plaque formation of the right cavernous carotid artery, without a cross-sectional luminal stenosis. There is calcified plaque formation of the left cavernous carotid artery, without a cross-sectional luminal stenosis. Normal right A1 segments of the anterior cerebral artery. The left A1 segment is not visualized, likely due to developmental anomaly. There is no CTA evidence to suspect acute occlusive disease.. Normal intact anterior communicating artery (ACOM). Normal bilateral A2 segments of the anterior cerebral arteries. Normal right M1 and M2 segments of the middle cerebral arteries, with a normal M1 bifurcation. Normal left M1 and M2 segments of the middle cerebral arteries, with a normal M1 bifurcation. Normal right posterior communicating artery (PCOM). Normal left posterior communicating artery (PCOM). There is a small atretic right vertebral artery with a dominant left vertebral artery. Normal basilar artery with a normal basilar bifurcation. The visualized bilateral superior cerebellar (SCA) arteries are normal. Normal bilateral P1, P2 and visualized P3 segments of the posterior cerebral arteries. There is no demonstrated aneurysm of the [place] of [place]. There is no demonstrated abnormality of the visualized brain. AORTIC ARCH: Normal visualized aortic arch. Normal origins of the brachiocephalic, left common carotid, and left subclavian arteries. RIGHT CAROTID ARTERIES: Normal right common carotid artery (CCA). Normal right common carotid bulb. Normal origin of the right internal carotid (ICA) artery with a 50% stenosis due to a calcified posterior plaque. The stenosis last 4 approximately 1 cm before the ICA resumes its normal course and caliber to the skull base. Normal origin of the right external carotid artery (ECA). LEFT CAROTID ARTERIES: Normal left common carotid artery (CCA). Normal left common carotid bulb. Normal origin of the left internal carotid (ICA) artery without a hemodynamically significant stenosis. Normal visualized cervical portion of the left internal carotid artery. Normal origin of the left external carotid artery (ECA). VERTEBRAL ARTERIES: There is enhancement within the bilateral vertebral arteries with a small right vertebral artery, and a dominant left vertebral artery. No suspicious enhancing lesion, no airway narrowing or deviation. Lung apices are clear. There has been a remote CABG CT/STROKE CTA Head AND Neck W/Con IMPRESSION: No CTA evidence of acute occlusive disease or hemodynamically significant stenosis within the intracranial circulation. 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 N.B. : The above Results were Read Back by Tramaine Sapp MD to Jackson Sebastian MD, and understanding confirmed on 04/29/2022 11:48:52 (ET). Electronically Signed: Tramaine Sapp MD at 11:52 EST ,
--- NOTE | 2022-04-29 11:54 | SUR.PHASEI ---
STROKE ALERT CALLED AT 11:05. DR. VILLANUEVA AT BEDSIDE, THIS NURSE TOOK PT TO CT WITH DR. VILLANUEVA AND RESPIRATORY.
--- NOTE | 2022-04-29 11:57 | SUR.PHASEI ---
PT WENT TO ICU FROM CT.
[2022-04-29] MEDS: 0.9% Normal Saline 1,000 ML 60 ML IV (12:00)
--- NOTE | 2022-04-29 12:00 | CM.ED ---
Social Work Responding to stroke alert. No family present. This social service manager assisting in coordinating phone call with Dr. Teran and patient daughter Nathalie ([phone]). Dr. Teran speaking with Nathalie. This social service manager provided Dr. Teran with Nathalie's contact information per Dr. Teran's request to be able to contact Nathalie with updates. Patient to CT scan and then ICU This social service manager provided verbal handoff to ICU social service manager. Jg SANTOS, IMMANUEL
[2022-04-29] MEDS: Propofol 10MG/Ml 1,000 MG/100 ML Bottle 4.1 MG CONT INF (12:10)
[2022-04-29 12:25] LABS: Bedside Glucose 200 mg/dL (74-106)
--- NOTE | 2022-04-29 12:27 | PCM.OPRPT ---
Report of Operation Date of Procedure: 04/29/22 Pre-Operative Diagnosis: Colon cancer, hepatic flexure Post-Operative Diagnosis: Same Surgery/Procedure Performed:: Laparoscopic converted to open right hemicolectomy with primary anastomosis Specimen's removed: Right colon Description of Procedure: Was brought back to the operating room and general anesthesia was induced. The Childress catheter was placed and then the abdomen was prepped and draped in usual sterile fashion. Midline incision was made superior to the umbilicus and deepened to the fascia which was elevated and incised. Port was placed into the abdomen and the abdomen was insufflated 15 mmHg. The camera was placed into the abdomen and it appeared that the omentum was adherent to the anterior abdominal wall throughout the abdomen. Next we decided to convert to open surgery. The midline incision was extended superiorly and then the fascia was incised superiorly until there was enough of a laparotomy incision. The fascia was elevated on both sides the omentum was taken down using electrocautery and Enseal to free up fascial edges on both sides. Dissection was carried laterally on both sides taking down all adhesions until the omentum was able to be mobilized. The right upper quadrant was inspected. The patient had a large mass which is growing into the peritoneum and abdominal sidewall. Dissection was started anteriorly and laterally and using combination of Enseal and electrocautery and sharp dissection the dissection was carried laterally until Gerota's fascia was encountered. Next we worked superiorly from there and tried to preserve the duodenum is much as possible. There was a small serosal defect on the duodenum after dissection was complete which was reapproximated using imbricating 3-0 silk sutures. There appeared to also be a perforation with an abscess cavity near the liver bed. This was suctioned dry and dissection was carried until the mass was able to be medialized. The mass was invading the abdominal wall and so laterally the posterior rectus sheath and some of the muscle was resected en bloc. Titanium clips were placed in the peritoneal cavity and muscle cavity that was left behind for future radiation. After the mass was able to be medialized the right colon was removed from the white line of [place] using electrocautery until the cecum was mobilized. Next the right colic pedicle was addressed. It was clamped and then the vein and artery were each suture ligated using 0 silk suture. The right middle colic vessels were then identified and in the same manner they were clamped and tied off using 0 silk suture and divided. Next a KENYA stapler was used to divide the transverse colon distal to the mass and to divide the small bowel. Enseal was used to take down the remaining mesentery and the specimen was removed. Next the pedicles were inspected once more and appeared to have good hemostasis. The small bowel was then opened at the corner of the staple line as was the transverse colon and then using a 75 KENYA stapler the small bowel was stapled to the transverse colon in a [id number] functional end-to-end fashion. The staple line was inspected and there was good hemostasis and then the enterostomy was closed with a TX 60 stapler. There was good hemostasis and then the mesenteric defect was closed using a running 3-0 Vicryl suture. A crotch suture of 3-0 silk was placed. The abdomen was irrigated and suctioned dry and the right upper quadrant was inspected. There was no leakage of bile from the duodenum and the bleeding appeared to stop. Surgicel powder was placed in the right upper quadrant in the muscle cavity from the en bloc resection. Next the bowel was placed in anatomical position and the wound protector was removed. All staff changed gown and gloves and then redraped over the old drapes. The skin incision was injected with Exparel as the tap block was unable to be performed because I was unable to visualize the lateral abdomen. Next the fascia was closed in a running fashion starting from the top and bottom meeting in the middle with a #1 Prolene suture. The subcutaneous tissue was irrigated and suctioned dry and then the skin was closed with rubia. Bandages were placed. The patient was unable to be extubated and brought to PACU intubated. Admit VTE Documentation VTE Mechan Device Prophylaxis: SCD's
--- NOTE | 2022-04-29 12:53 | PCM.PN.BLA ---
Progress Note The patient was unable to be extubated after surgery. She was brought to PACU intubated and on a vent and was noted after not being responsive to have a dilated right pupil. Stroke team was called and patient was taken for CT scan and then taken to the ICU. CT scan did not reveal any acute ischemia and only a 50% stenosis of the ICA on the right. Neurology was consulted as well. Only got up to the ICU the patient was blinking on command and did not her head when when we asked her if she was in pain. Patient then started following commands by squeezing hands. At that time sedation was resumed as it was assumed that the patient had paralytics on board but was not sedated. Sugammadex was given. The patient had already received Narcan downstairs. After discussing with neurology and after they reviewed the films they recommended MRI if there were any residual deficits after extubation. Patient was resumed on a propofol drip and instrumentation technician was notified. I recommended that we give it some time for the paralytics to metabolize and try to extubate this afternoon. I discussed this with the patient's daughter in detail. Addy Teran MD Pager: [facility] [address] [place] [address], [address] [place] [address] Office:
--- NOTE | 2022-04-29 13:17 | EX.PCM.CONCC ---
Assessment & Plan Assessment/Plan (1) Respiratory failure: PLAN: Plan RECOMMENDATIONS: 1. Continue to hold sedation and attempt breathing trial. 2. If unable to be extubated this afternoon, will add fentanyl to the patient's propofol for comfort. 3. If unable to be extubated, OG tube will be placed and maintained on low intermittent suction. 4. Spontaneous awakening and breathing trials can be undertaken in the morning. 5. Obtain chest x-ray. IMPRESSIONS: 1. Respiratory failure The patient was left intubated after her surgical procedure today after she was noted to have a dilated right pupil and concern for acute CVA. The patient was taken emergently for CT imaging of the head, which was unremarkable. At this time she will be monitored in the medical intensive care unit. Plan to minimize sedation and attempt a spontaneous breathing trial this afternoon, if appropriate. Otherwise, the patient will be maintained on assist control mode of mechanical ventilation overnight with propofol and fentanyl for comfort. She will then undergo a spontaneous awakening and breathing trial in the morning, with tentative plans for extubation. If the patient were to demonstrate any focal neurological deficits after extubation, will obtain MRI brain. 2. 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 If the patient remains intubated today, will place OG tube and maintained to low intermittent wall suction. TIME: 34 minutes of critical care time, independent of procedures, was spent addressing the patient's respiratory failure, invasive adenocarcinoma status post right hemicolectomy, review of all data and collaboration with the care team. HPI Consult Data Date of Consult: 04/30/22 HPI Narrative Reason for Consultation: Respiratory failure HPI Narrative: The patient is a 81-year-old female, with a history as outlined below, who presented to the hospital for an elective hemicolectomy due to a obstructing circumferential mass noted in the hepatic flexure, which following biopsy, was found to be invasive adenocarcinoma. Although the initial plan was for a laparoscopic procedure, was eventually converted to an open right hemicolectomy with primary anastomosis. Postoperatively, the patient was unable to be extubated. Therefore she was transferred to the PACU. At that time, the patient was noted to have a dilated right pupil. A stroke team was subsequently initiated and the patient was taken for CT imaging of the head. Brain CT did not reveal any acute intracranial process. There was no large vessel occlusion noted on CTA head and neck. In light of the aforementioned, the patient was transferred to the medical intensive care unit for further management. Shortly after her arrival to the ICU, the patient did receive additional neuromuscular reversal by anesthesia. A short time later, the patient did become more responsive. She was able to squeeze my hands and wiggle her toes. An attempt was made to place her on a spontaneous breathing trial. However, the patient was still quite groggy and fell quickly back to sleep with suboptimal tidal volumes. Therefore, she was placed back on assist control mode of mechanical ventilation. [facility] Medical History (Updated 04/29/22 @ 13:[address] Milo Chapin, DO) Ambulates with cane Anxiety Arthritis Autoimmune hemolytic anemia Back pain Cancer Cardiology follow-up encounter Carotid artery stenosis Carpal tunnel syndrome Colon cancer Depression Diabetes Diverticulitis Gastric reflux Hemolytic anemia High cholesterol History of echocardiogram History of edema History of stress test HTN (hypertension) Hx of fracture of femur Hx of fracture of wrist Hx of reduction of open fracture Hyperlipidemia Hypertension Hypothyroid Iron deficiency anemia due to chronic blood loss Liver lesion Low iron Lung nodule Lung nodules Moderate tricuspid regurgitation Non-smoker Osteoarthritis Other nonspecific abnormal finding of lung field Restless legs Shortness of breath on exertion synthroid induced DM Thrombocytopenia Thyroid disease Walker as ambulation aid Wears glasses Home Medications folic acid 1 mg tablet 0.8 mg PO DAILY SUPPLEMENT 08/26/16 [History Last Taken 08/26/16] omeprazole 20 mg capsule,delayed release 20 mg PO DAILY GERD 08/26/16 [History Last Taken 08/26/16] trazodone 50 mg tablet 100 mg PO QHS Check with primary doctor 08/26/16 [History Last Taken 08/25/16] cyanocobalamin (vitamin B-12) 1,000 mcg/mL injection solution 1,000 mcg IM QMONTH SUPPLEMENT 01/24/17 [History Last Taken Unknown] Lactobacillus rhamnosus GG 10 billion cell capsule (Culturelle) 1 cap PO DAILY SUPPLEMENT 04/07/22 [History Last Taken Unknown] atorvastatin 40 mg tablet 40 mg PO QHS CHOLESTEROL 04/07/22 [History Last Taken Unknown] cholecalciferol (vitamin D3) 50 mcg (2,000 unit) capsule 50 mcg PO DAILY SUPPLEMENT 04/07/22 [History Last Taken Unknown] clopidogrel 75 mg tablet (Plavix) 75 mg PO DAILY BLOOD THINNER 04/07/22 [History Last Taken 04/22/22] levothyroxine 112 mcg capsule 112 mcg PO DAILY THYROID 04/07/22 [History Last Taken Unknown] melatonin 5 mg capsule 10 mg PO QHS PRN Sleep 04/07/22 [History Last Taken Unknown] metoprolol succinate 50 mg tablet,extended release 24 hr 50 mg PO DAILY BP 04/07/22 [History Last Taken Unknown] multivitamin (Daily Multi-Vitamin tablet) 1 tab PO DAILY SUPPLEMENT 04/07/22 [History Last Taken Unknown] polyethylene glycol 3350 17 gram/dose oral powder (Miralax) 4 g PO DAILY CONSTIPATION 04/07/22 [History Last Taken Unknown] pramipexole 0.125 mg tablet 0.125 mg PO QHS RESTLESS LEGS 04/07/22 [History Last Taken Unknown] buspirone 5 mg tablet 5 mg PO BID ANXIETY 04/23/22 [History Last Taken Unknown] metronidazole 500 mg tablet See Rx Instructions PO DAILY PREP 04/23/22 [History Last Taken Unknown] neomycin 500 mg tablet See Rx Instructions PO .COMPLEX PREP 04/23/22 [History Last Taken Unknown] potassium chloride 20 mEq tablet,extended release 20 meq PO DAILY SUPPLEMENT 04/23/22 [History Last Taken Unknown] sertraline 25 mg tablet 25 mg PO DAILY DEPRESSION 04/23/22 [History Last Taken Unknown] Allergy/AdvReac Type Severity Reaction Status Date / Time Sulfa (Sulfonamide Allergy Hives Verified 04/29/22 06:40 Antibiotics) ibuprofen AdvReac IT Verified 04/29/22 06:40 AFFECTS MY KIDNEYS Family History Brother Myocardial infarction Cancer lung Father , 61 yrs Cancer lung Mother , 86 yrs Alzheimer disease Surgical History H/O: hysterectomy History of ankle surgery History of carpal tunnel release History of coronary artery bypass graft History of laparoscopic cholecystectomy History of repair of hiatal hernia Social History household members: none Smoking Status: Never smoker alcohol intake: never substance use type: does not use ROS Review of Systems ROS Unobtainable: due to endotracheal tube Physical Exam Const alert and no apparent distress Constitutional Narrative: No ventilator dyssynchrony. General Appearance: intubated and patient mechanically ventilated HEENT normocephalic and head/scalp atraumatic Mouth: endotracheal tube in place Eyes Eyes Narrative: Right pupil dilatation Neck supple General: trachea midline Chest inspection of chest normal Resp normal respiratory effort Auscultation: Negative for rales, rhonchi or wheezes Cardio regular rate and regular rhythm GI soft to palpation GI Narrative: Surgical dressing in place. Extremity no clubbing, cyanosis or edema Skin no rashes or lesions noted Neuro Neuro Narrative: The patient will arouse transiently to verbal stimulation and follow some simple commands, only to fall quickly back to sleep. Lab / Micro Data Result Diagrams: 04/30/22 04:55 04/30/22 04:55 Labs: Laboratory Results - last 24 hr 04/29/22 06:15: POC Glucose 130 H 04/29/22 06:28: Potassium 3.8 04/29/22 11:36: POC Glucose 200 H Radiology Impression Brain CT 04/29/22 11:14 IMPRESSION: Age consistent changes, no acute findings N.B. : The above Results were Read Back by Tramaine Sapp MD to Jackson Sebastian MD, and understanding confirmed on 04/29/2022 11:42:26 (ET). Electronically Signed: Tramaine Sapp MD at 11:43 EST , ADDENDUM: 04/29/22 1150 IMPRESSION: Age consistent changes, no acute findings N.B. : The above Results were Read Back by Tramaine Sapp MD to Jackson Sebastian MD, and understanding confirmed on 04/29/2022 11:42:26 (ET). Electronically Signed: Tramaine Sapp MD at 11:43 EST , Head/Neck CTA 04/29/22 11:15 IMPRESSION: No CTA evidence of acute occlusive disease or hemodynamically significant stenosis within the intracranial circulation. 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 N.B. : The above Results were Read Back by Tramaine Sapp MD to Jackson Sebastian MD, and understanding confirmed on 04/29/2022 11:48:52 (ET). Electronically Signed: Tramaine Sapp MD at 11:52 EST , ADDENDUM: 04/29/22 1159 IMPRESSION: No CTA evidence of acute occlusive disease or hemodynamically significant stenosis within the intracranial circulation. 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 N.B. : The above Results were Read Back by Tramaine Sapp MD to Jackson Sebastian MD, and understanding confirmed on 04/29/2022 11:48:52 (ET). Electronically Signed: Tramaine Sapp MD at 11:52 EST , Charges/Coding Procedures Hospitalists Procedures: [id number] [facility] Care 1st Hr
--- NOTE | 2022-04-29 13:17 | CHAPLAIN ---
Type of Pastoral Visit ___ Initial Visit ___ Follow-up Visit ___ On-call Visit ___ General Patient Visit ___ Spiritual Assessment ___ Family Conference ___ Bereavement _x__ Rapid Response ___ Code Blue ___ Other (describe below) Pastoral Care Referral From ___ Patient ___ Family ___ Nurse ___ Physician ___ Steel Handler ___ Filter Changing Technician _x__ Other (describe below) Sacrament/Intervention _x__ Active listening ___ Anointing ___ Alevism ___ Bereavement ___ Communion ___ Melly exploration ___ ___ Life review _x__ Prayer ___ Reconciliation ___ Sacrament of Sick _x__ Supportive presence ___ Wedding ___ Other (describe below) Pastoral Comments went to PACU in response of stroke alert; pt was taken to CT and family members were being called by SV[employer]LANA and ; this tag writer was then present in ICU when patient arrived; pt was intubated and family was not yet present; later returned to ICU where family had arrived and were present in patient's room; offered presence and support to family; family agreed to a prayer and upon gathering around the bed the patient opened her eyes, nodding and winking her eyes in agreement for prayer; pt was able to indicate answers to daughter's questions at this time; offer on ongoing support was given
--- NOTE | 2022-04-29 13:55 | RAD_ITS ---
STUDY: X-RAY CHEST REASON FOR EXAM: Female, 81 years old. ETT and OGT placement verification TECHNIQUE: Single AP portable view of the chest. COMPARISON: None. FINDINGS: An endotracheal tube is in situ. The tip is at 4 cm proximal to the baldemar. An orogastric tube is seen with the tip in the distal portion of the stomach. EKG electrodes are seen. The lungs are clear and expanded. There is no demonstrated pleural abnormality. Normal size heart. Normal mediastinum and rupal. Normal visualized pulmonary arteries. Normal visualized aortic arch and descending thoracic aorta. There are diffuse degenerative changes of the visualized thoracic spine. There is degenerative osteoarthritis of the bilateral shoulders. There is no demonstrated abnormality of the visualized soft tissue structures of the upper abdomen. RAD/Chest 1 View (Portable) IMPRESSION: Support tubes are in good position. Electronically Signed: Nikolai Wall MD at 14:14 EST ,
[2022-04-29 14:05] LABS: CPK Total, Creatine Kinase 39 U/L (26-192); Triglycerides 73 mg/dL
[2022-04-29] MEDS: Chlorhexidine 15 ML PO ×2 (17:05→20:53)
[2022-04-29] MEDS: Propofol 10MG/Ml 1,000 MG/100 ML Bottle 8.3 MG CONT INF (23:46)
[2022-04-30] VITALS (20 sets, daily range): BP systolic 102–126; BP diastolic 34–50; PULSE 62–77; RESP 13–23; TEMP 36.6–37.2; O2SAT 97–100
[2022-04-30] MEDS: 0.9% Normal Saline 1,000 ML 60 ML IV ×2 (04:56→21:17)
[2022-04-30 05:02] LABS: Absolute Lymphocyte Count 1.11 X10^3/uL (0.83-4.51); Absolute Neutrophil Count 17.6 X10^3/uL (2.0-7.7); Basophil# 0.04 X10^3/uL; Basophil% 0.2 % (0-1); Eosinophil# 0.01 X10^3/uL; Eosinophils% 0.1 % (0-5); Hemoglobin 7.5 g/dL (12.0-15.0); Lymphocyte # 1.11 X10^3/ul (0.83-4.51); Lymphocyte % 5.6 % (19-41); Mean Corp Hgb Conc 28.8 g/dL (32-36); Mean Corpuscular Hgb 30.4 pg (27.0-32.0); Mean Corpuscular Volume 105.3 fL (81-99); Mean Platelet Vol. 9.1 fl (6.2-12.0); Monocyte# 1.15 X10^3/uL; Monocyte% 5.8 % (0-10); NRBC Flagged by Analyzer 0 % (0-5); Neutrophil # 17.55 X10^3/uL (2.7-7.7); Neutrophil % 87.7 % (47-70); POSITIVE MORPHOLOGY YES; Platelet Count 233 K/mm3 (150-450); RBC Distribution Width CV 19.2 % (11.6-14.6); RBC Distribution Width SD 74.4 fl (35.1-43.9); Red Blood Count 2.47 M/mm3 (4.2-5.4)
[2022-04-30 05:05] LABS: Differential Indicated SCAN CRITERIA MET
[2022-04-30 05:19] LABS: Anion Gap 10 (5-15); BUN 9 mg/dL (7-18); BUN/Creat Ratio 13.5 RATIO (10-20); Calcium,Total 7.1 mg/dL (8.5-10.1); Chloride 110 mmol/L (98-107); Creatinine, Serum 0.66 mg/dL (0.55-1.02); EST Glomerular Filtration Rate 91 mL/min (>60); Est Glom Filt Rate - Afr Amer 110 mL/min (>60); Estimated Creatinine Clearance 33.86 ml/min; Glucose 96 mg/dL (74-106); Magnesium 1.7 mg/dL (1.6-2.6); Phosphorus 2.8 mg/dL (2.5-4.9); Potassium 3.7 mmol/L (3.5-5.1); Sodium Level 141 mmol/L (136-145)
[2022-04-30 05:33] LABS: Anisocytosis 2+; Macrocytosis 1+
--- NOTE | 2022-04-30 06:40 | PN.CC_ITS ---
Assessment & Plan Assessment/Plan (1) Respiratory failure: QUALIFIERS: Chronicity: unspecified Respiratory failure complication: unspecified whether with hypoxia or hypercapnia Qualified Code(s): J96.90 - Respiratory failure, unspecified, unspecified whether with hypoxia or hypercapnia PLAN: Plan RECOMMENDATIONS: 1. Proceed with a trial of extubation this morning. 2. Once extubated, wean supplemental oxygen to maintain saturations at or above 90%. 3. Dietary advancement per general surgery. 4. No additional neurologic work-up is indicated from my perspective. 5. Encourage incentive spirometer use and mobilize patient as tolerated. 6. If the patient does well clinically she can be transferred to a regular medical surgical floor this afternoon. IMPRESSIONS: 1. Respiratory failure Resolved. The patient was left intubated following her surgical procedure after she was noted to have a dilated right pupil and concern for acute CVA. The patient was taken emergently for CT imaging of the head, which was unremarkable. The patient was maintained on assist control mode mechanical ventilation and was able to be successfully extubated this morning. Her diet can be advanced per surgery recommendations. The patient did report that her right pupil was always dilated as a consequence of a prior cataract surgery. Therefore, no additional neurologic work-up is indicated from my perspective. Plan to encourage incentive spirometer use and mobilize patient as tolerated. 2. 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 Continue supportive measures as noted above. TIME: 31 minutes of critical care time, independent of procedures, was spent addressing the patient's respiratory failure, invasive adenocarcinoma status post right hemicolectomy, review of all data and collaboration with the care team. Subjective Subjective The patient was seen and examined at the bedside this morning. Events from the last 24 hours have been reviewed. The patient is currently afebrile, hemodynamically stable and maintaining appropriate oxygen saturations on spontaneous mode mechanical ventilation with an FiO2 requirement of 30%. The patient is alert and appropriately interactive this morning. She passed her spontaneous breathing trial without complication. Accordingly, the patient was extubated. White count is elevated this morning at 20,000. Hemoglobin was noted to be 7.5 g/dL. Objective Data Objective Data The patient's most recent lab work, culture data and imaging studies have all been personally reviewed. Vital Signs: Vital Signs Temp Pulse Resp BP Pulse Ox O2 Del Method FiO2 97.1 F L 71 14 121/43 H 100 Mechanical Ventilator 30 04/29/22 20:00 04/30/22 06:00 04/30/22 06:00 04/30/22 06:00 04/30/22 06:00 04/30/22 06:00 04/30/22 01:50 Oxygen Delivery Method Mechanical Ventilator Weight: 158 lb 11.2 oz Body Mass Index (BMI) 28.0 Intake & Output: Intake and Output for Last 24 Hours 04/28/22 04/29/22 04/30/22 23:59 23:59 23:59 Intake Total 568.87 / 575.81 1060.14 / 1060.14 Output Total 825 / 825 Balance -256.13 / -249.19 1060.14 / 1060.14 Lab / Micro Data Attestation: I reviewed the patient's lab results. Result Diagrams: 04/30/22 04:55 04/30/22 04:55 Labs: Laboratory Results - last 24 hr 04/29/22 06:15: POC Glucose 130 H 04/29/22 06:28: Potassium 3.8 04/29/22 06:43: Total Creatine Kinase 39, Triglycerides 73 04/29/22 11:36: POC Glucose 200 H 04/30/22 04:55: WBC 20.0 H, RBC 2.47 L, Hgb 7.5 L, Hct 26.0 L, MCV 105.3 H, MCH 30.4, MCHC 28.8 L, RDW Std Deviation 74.4 H, RDW Coeff of Isis 19.2 H, Plt Count 233, MPV 9.1, Immature Gran % (Auto) 0.600, Neut % (Auto) 87.7 H, Lymph % (Auto) 5.6 L, [place] % (Auto) 5.8, Eos % (Auto) 0.1, Baso % (Auto) 0.2, Absolute Neuts (auto) 17.6 H, Absolute Lymphs (auto) 1.11, Nucleated RBC % 0, Anisocytosis 2+, Macrocytosis 1+ 04/30/22 04:55: Sodium 141, Potassium 3.7, Chloride 110 H, Carbon Dioxide 21.0, Anion Gap 10, BUN 9, Creatinine 0.66, Estim Creat Clear Calc 33.86, Est GFR (MDRD) Af Amer 110, Est GFR (MDRD) Non-Af 91, BUN/Creatinine Ratio 13.5, Glucose 96, Calcium 7.1 L, Phosphorus 2.8, Magnesium 1.7 Radiography Diagnostic Testing: Radiology Impression Brain CT 04/29/22 11:14 IMPRESSION: Age consistent changes, no acute findings N.B. : The above Results were Read Back by Tramaine Sapp MD to Jackson Sebastian MD, and understanding confirmed on 04/29/2022 11:42:26 (ET). Electronically Signed: Tramaine Sapp MD at 11:43 EST , ADDENDUM: 04/29/22 1150 IMPRESSION: Age consistent changes, no acute findings N.B. : The above Results were Read Back by Tramaine Sapp MD to Jackson Sebastian MD, and understanding confirmed on 04/29/2022 11:42:26 (ET). Electronically Signed: Tramaine Sapp MD at 11:43 EST , Head/Neck CTA 04/29/22 11:15 IMPRESSION: No CTA evidence of acute occlusive disease or hemodynamically significant stenosis within the intracranial circulation. 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 N.B. : The above Results were Read Back by Tramaine Sapp MD to Jackson Sebastian MD, and understanding confirmed on 04/29/2022 11:48:52 (ET). Electronically Signed: Tramaine Sapp MD at 11:52 EST , ADDENDUM: 04/29/22 1159 IMPRESSION: No CTA evidence of acute occlusive disease or hemodynamically significant stenosis within the intracranial circulation. 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 N.B. : The above Results were Read Back by Tramaine Sapp MD to Jackson Sebastian MD, and understanding confirmed on 04/29/2022 11:48:52 (ET). Electronically Signed: Tramaine Sapp MD at 11:52 EST , Chest X-Ray 04/29/22 13:55 IMPRESSION: Support tubes are in good position. Electronically Signed: Nikolai Wall MD at 14:14 EST , Physical Exam Const alert and no apparent distress Constitutional Narrative: No ventilator dyssynchrony. General Appearance: cooperative, intubated and patient mechanically ventilated HEENT normocephalic and head/scalp atraumatic Mouth: endotracheal tube in place and OG tube in place Eyes Eyes Narrative: Right pupil dilatation Neck supple General: trachea midline Chest inspection of chest normal Resp normal respiratory effort Auscultation: Negative for rales, rhonchi or wheezes Cardio regular rate and regular rhythm GI soft to palpation GI Narrative: Surgical dressing in place. Extremity no clubbing, cyanosis or edema Skin no rashes or lesions noted Neuro Neuro Narrative: Alert and following commands appropriately. Charges/Coding Procedures Hospitalists Procedures: [id number] Critial Care 1st Hr
--- NOTE | 2022-04-30 07:28 | PN.SURG_ITS ---
Subjective Subjective Patient was extubated this morning. She states she is comfortable. Her pain is well controlled. Objective Data Objective Data Vital Signs: Vital Signs Temp Pulse Resp BP Pulse Ox O2 Del Method FiO2 97.1 F L 71 14 121/43 H 100 Mechanical Ventilator 30 04/29/22 20:00 04/30/22 06:00 04/30/22 06:00 04/30/22 06:00 04/30/22 06:00 04/30/22 06:00 04/30/22 01:50 Oxygen Delivery Method Mechanical Ventilator Weight: 158 lb 11.2 oz Body Mass Index (BMI) 28.0 Intake & Output: Intake and Output for Last 24 Hours 04/28/22 04/29/22 04/30/22 23:59 23:59 23:59 Intake Total 568.87 / 575.81 1060.14 / 1060.14 Output Total 825 / 825 100 / 100 Balance -256.13 / -249.19 960.14 / 960.14 Lab / Micro Data Result Diagrams: 04/30/22 04:55 04/30/22 04:55 Labs: Laboratory Results - last 24 hr 04/29/22 06:43: Total Creatine Kinase 39, Triglycerides 73 04/29/22 11:36: POC Glucose 200 H 04/30/22 04:55: WBC 20.0 H, RBC 2.47 L, Hgb 7.5 L, Hct 26.0 L, MCV 105.3 H, MCH 30.4, MCHC 28.8 L, RDW Std Deviation 74.4 H, RDW Coeff of Isis 19.2 H, Plt Count 233, MPV 9.1, Immature Gran % (Auto) 0.600, Neut % (Auto) 87.7 H, Lymph % (Auto) 5.6 L, [place] % (Auto) 5.8, Eos % (Auto) 0.1, Baso % (Auto) 0.2, Absolute Neuts (auto) 17.6 H, Absolute Lymphs (auto) 1.11, Nucleated RBC % 0, Anisocytosis 2+, Macrocytosis 1+ 04/30/22 04:55: Sodium 141, Potassium 3.7, Chloride 110 H, Carbon Dioxide 21.0, Anion Gap 10, BUN 9, Creatinine 0.66, Estim Creat Clear Calc 33.86, Est GFR (MDRD) Af Amer 110, Est GFR (MDRD) Non-Af 91, BUN/Creatinine Ratio 13.5, Glucose 96, Calcium 7.1 L, Phosphorus 2.8, Magnesium 1.7 Radiography Diagnostic Testing: Radiology Impression Brain CT 04/29/22 11:14 IMPRESSION: Age consistent changes, no acute findings N.B. : The above Results were Read Back by Tramaine Sapp MD to Jackson Sebastian MD, and understanding confirmed on 04/29/2022 11:42:26 (ET). Electronically Signed: Tramaine Sapp MD at 11:43 EST , ADDENDUM: 04/29/22 1150 IMPRESSION: Age consistent changes, no acute findings N.B. : The above Results were Read Back by Tramaine Sapp MD to Jackson Sebastian MD, and understanding confirmed on 04/29/2022 11:42:26 (ET). Electronically Signed: Tramaine Sapp MD at 11:43 EST , Head/Neck CTA 04/29/22 11:15 IMPRESSION: No CTA evidence of acute occlusive disease or hemodynamically significant stenosis within the intracranial circulation. 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 N.B. : The above Results were Read Back by Tramaine Sapp MD to Jackson Sebastian MD, and understanding confirmed on 04/29/2022 11:48:52 (ET). Electronically Signed: Tramaine Sapp MD at 11:52 EST , ADDENDUM: 04/29/22 1159 IMPRESSION: No CTA evidence of acute occlusive disease or hemodynamically significant stenosis within the intracranial circulation. 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 N.B. : The above Results were Read Back by Tramaine Sapp MD to Jackson Sebastian MD, and understanding confirmed on 04/29/2022 11:48:52 (ET). Electronically Signed: Tramaine Sapp MD at 11:52 EST , Chest X-Ray 04/29/22 13:55 IMPRESSION: Support tubes are in good position. Electronically Signed: Nikolai Wall MD at 14:14 EST , Physical Exam Const oriented x3 and no apparent distress Resp normal respiratory effort GI soft to palpation and non-tender Assessment & Plan Assessment/Plan (1) Respiratory failure: QUALIFIERS: Chronicity: unspecified Respiratory failure complicat ion: unspecified whether with hypoxia or hypercapnia Qualified Code(s): J96.90 - Respiratory failure, unspecified, unspecified whether with hypoxia or hypercapnia (2) Colonic mass: PLAN: Plan Patient seems to be doing well this morning and she is extubated. She reports that her right pupil is always more dilated than her left due to cataract surgery. Patient has no focal deficits from a neurological standpoint this mo rning. I will start a clear liquid diet and hopefully transfer her to the normal floor this afternoon. Addy Teran MD Pager: [facility] [address] [place] [address], [address] [place] [address] Office:
[2022-04-30] MEDS: Morphine 2 MG/ML Syringe IV (07:49)
[2022-04-30] MEDS: Ondansetron 4 MG/2 ML Vial IV ×2 (07:49→12:59)
[2022-04-30] MEDS: Pantoprazole Sodium 40 MG Tablet PO (09:52)
[2022-04-30] MEDS: oxyCODONE 5 MG Tablet PO ×2 (11:02→15:21)
[2022-04-30] MEDS: Potassium Chloride Oral Tablet 20 MEQ PO (13:57)
[2022-04-30] MEDS: Sertraline 50 MG Tablet 25 MG PO (13:57)
[2022-04-30] MEDS: Levothyroxine 112 MCG Tablet PO (13:58)
[2022-04-30] MEDS: Metoprolol(XL)Succ 50 MG Tablet PO (13:59)
[2022-04-30] MEDS: Folic Acid 1 MG Tablet PO (14:00)
--- NOTE | 2022-04-30 15:30 | CASEMGMT ---
INÉS MCBRIDE DC Planning Assessment: Face to Face with pt for initial dc planning/care coordination assessment. Pt alert and answering questions appropriately. INÉS MCBRIDE introduced self and role at [facility]. Pt voiced understanding. Care providers, pharmacy and demographics verified. PCP: Sebastien Specialists: Dr. Teran, Had previously seen Dr. Schaefer for anemia but has not seen him for a couple of years. Preferred Pharmacy: [facility] Insurance: [employer] [facility], Prescription benefit: yes Living Will/HPOA: Yes/Yes-Saray Daughter LNOK: Saray (daughter) Living arrangements: Pt states she lives alone in a single story home with no steps to enter. Pt states she is independent with her ADLs including household tasks. States her daughter is able to assist her if needed. Transportation: Pt drives. States her daughter can assist if needed. DME: shower chair, grab bars, raised toilet seat, cane, w/c, lift chair. Has a medical alert button ordered but it has not yet arrived. SNF: [facility] for tx after fibula fx. HHC: After dc from [facility] but does not remember the provider Plan: Pt wants to return home at discharge. Pt would be agreeable to home health services. Pt states she cannot stay at her daughter's home due to the daughter having a family to care for. Will continue to follow pt's progress medically and with therapy and will assist with coordination of DC needs as able to determine. Amelie Zapien RN CM
[2022-04-30] MEDS: traZODone 50 MG Tablet 100 MG PO (21:17)
[2022-04-30] MEDS: Atorvastatin Calcium 40 MG Tablet PO (21:17)
[2022-04-30] MEDS: busPIRone 5 MG Tablet PO (21:17)
[2022-04-30] MEDS: Pramipexole Di-HCl 0.125 MG Tablet PO (21:17)
[2022-05-01] VITALS (31 sets, daily range): BP systolic 80–144; BP diastolic 35–61; PULSE 58–70; RESP 13–18; TEMP 36.6–37.3; O2SAT 92–100
[2022-05-01] MEDS: 0.9% Normal Saline 1,000 ML 500 ML IV (03:57)
[2022-05-01] MEDS: Levothyroxine 112 MCG Tablet PO (05:00)
--- NOTE | 2022-05-01 06:06 | PCM.PN.INT ---
Assessment & Plan Assessment/Plan (1) Respiratory failure: QUALIFIERS: Chronicity: unspecified Respiratory failure complication: unspecified whether with hypoxia or hypercapnia Qualified Code(s): J96.90 - Respiratory failure, unspecified, unspecified whether with hypoxia or hypercapnia PLAN: Plan RECOMMENDATIONS: 1. Give 1 L LR fluid bolus this morning and recheck blood pressures. 2. Send CBC along with type and screen. 3. Transfuse if hemoglobin drops below 7 g/dL. 4. Dietary advancement per general surgery. 5. Encourage incentive spirometer use and mobilize patient as tolerated. IMPRESSIONS: 1. Respiratory failure Resolved. The patient was left intubated following her surgical procedure after she was noted to have a dilated right pupil and concern for acute CVA. The patient was taken emergently for CT imaging of the head, which was unremarkable. The patient was maintained on assist control mode mechanical ventilation and was able to be successfully extubated on April 30. The patient did report that her right pupil was always dilated as a consequence of a prior cataract surgery. Therefore, no additional neurologic work-up is indicated from my perspective. Plan to encourage incentive spirometer use and mobilize patient as tolerated. The patient is maintaining appropriate oxygen saturations on room air at the present time. 2. Hypotension The patient's blood pressures have been somewhat labile this morning. She did become dizzy when being sat on the edge of the bed, with a drop in her systolic into the 70s. Therefore, will administer additional IV fluids. The patient was also noted to be anemic yesterday. We will send follow-up CBC this morning, along with type and screen. If her hemoglobin is less than 7 g/dL, she will receive transfusion of blood products. 3. 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 Continue supportive measures as noted above. This note was generated with [employer] dictation software. It may contain incorrect words, spelling, and punctuation that were not noted in checking the note before signing. Subjective Subjective The patient was seen and examined at the bedside this morning. Events from the last 24 hours have been reviewed. The patient is currently afebrile and maintaining appropriate oxygen saturations on room air. The patient denied any significant pain this morning. However, her blood pressures have been somewhat soft. At the time of my evaluation, the patient had a systolic pressure of 90 mmHg. Upon sitting the patient up at the bedside, she became dizzy and her systolic blood pressure dropped into the 70s. Her hemoglobin yesterday was noted to be 7.5 g/dL. Repeat labs from this morning are pending. Objective Data Objective Data The patient's most recent lab work, culture data and imaging studies have all been personally reviewed. Vital Signs: Vital Signs Temp Pulse Resp BP Pulse Ox O2 Del Method O2 Flow Rate 98.9 F 68 16 105/49 L 98 Room Air 2 04/30/22 21:00 05/01/22 00:00 04/30/22 21:00 04/30/22 21:00 05/01/22 00:00 05/01/22 00:00 04/30/22 07:05 FiO2 30 04/30/22 01:50 Oxygen Flow Rate (L/min) 2 Oxygen Delivery Method Room Air Weight: 158 lb 11.2 oz Body Mass Index (BMI) 28.0 Intake & Output: Intake and Output for Last 24 Hours 04/29/22 04/30/22 05/01/22 23:59 23:59 23:59 Intake Total 568.87 / 575.81 08004038.14 / 53631562.14 50 / 50 Output Total 825 / 825 350 / 400 50 / 50 Balance -256.13 / -249.19 26600271.14 / 06596730.14 0 / 0 Lab / Micro Data Attestation: I reviewed the patient's lab results. Result Diagrams: 04/30/22 04:55 04/30/22 04:55 Labs: Laboratory Results - last 24 hr 04/29/22 06:15: POC Glucose 130 H 04/29/22 06:28: Potassium 3.8 04/29/22 06:43: Total Creatine Kinase 39, Triglycerides 73 04/29/22 11:36: POC Glucose 200 H 04/30/22 04:55: WBC 20.0 H, RBC 2.47 L, Hgb 7.5 L, Hct 26.0 L, MCV 105.3 H, MCH 30.4, MCHC 28.8 L, RDW Std Deviation 74.4 H, RDW Coeff of Isis 19.2 H, Plt Count 233, MPV 9.1, Immature Gran % (Auto) 0.600, Neut % (Auto) 87.7 H, Lymph % (Auto) 5.6 L, Callahan % (Auto) 5.8, Eos % (Auto) 0.1, Baso % (Auto) 0.2, Absolute Neuts (auto) 17.6 H, Absolute Lymphs (auto) 1.11, Nucleated RBC % 0, Anisocytosis 2+, Macrocytosis 1+ 04/30/22 04:55: Sodium 141, Potassium 3.7, Chloride 110 H, Carbon Dioxide 21.0, Anion Gap 10, BUN 9, Creatinine 0.66, Estim Creat Clear Calc 33.86, Est GFR (MDRD) Af Amer 110, Est GFR (MDRD) Non-Af 91, BUN/Creatinine Ratio 13.5, Glucose 96, Calcium 7.1 L, Phosphorus 2.8, Magnesium 1.7 Micro: Microbiology 04/29/22 13:32 Sputum, Induced/Lukens Gram Stain - Final 04/29/22 13:32 Sputum, Induced/Lukens Respiratory Culture - Preliminary Culture exhibits no growth. Radiography Diagnostic Testing: Radiology Impression Brain CT 04/29/22 11:14 IMPRESSION: Age consistent changes, no acute findings N.B. : The above Results were Read Back by Tramaine Sapp MD to Jackson Sebastian MD, and understanding confirmed on 04/29/2022 11:42:26 (ET). Electronically Signed: Tramaine Sapp MD at 11:43 EST , ADDENDUM: 04/29/22 1150 IMPRESSION: Age consistent changes, no acute findings N.B. : The above Results were Read Back by Tramaine Sapp MD to Jackson Sebastian MD, and understanding confirmed on 04/29/2022 11:42:26 (ET). Electronically Signed: Tramaine Sapp MD at 11:43 EST , Head/Neck CTA 04/29/22 11:15 IMPRESSION: No CTA evidence of acute occlusive disease or hemodynamically significant stenosis within the intracranial circulation. 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 N.B. : The above Results were Read Back by Tramaine Sapp MD to Jackson Sebastian MD, and understanding confirmed on 04/29/2022 11:48:52 (ET). Electronically Signed: Tramaine Sapp MD at 11:52 EST , ADDENDUM: 04/29/22 1159 IMPRESSION: No CTA evidence of acute occlusive disease or hemodynamically significant stenosis within the intracranial circulation. 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 N.B. : The above Results were Read Back by Tramaine Sapp MD to Jackson Sebastian MD, and understanding confirmed on 04/29/2022 11:48:52 (ET). Electronically Signed: Tramaine Sapp MD at 11:52 EST , Chest X-Ray 04/29/22 13:55 IMPRESSION: Support tubes are in good position. Electronically Signed: Nikolai Wall MD at 14:14 EST , Physical Exam Const alert, oriented x3 and no apparent distress General Appearance: cooperative HEENT normocephalic and head/scalp atraumatic Eyes conjunctivae normal Eyes Narrative: Right pupil dilatation Neck supple General: trachea midline Chest inspection of chest normal Resp normal respiratory effort Auscultation: Negative for rales, rhonchi or wheezes Cardio regular rate and regular rhythm GI soft to palpation GI Narrative: Surgical dressing in place. Extremity no clubbing, cyanosis or edema Skin no rashes or lesions noted Neuro CN's II-XII intact bilaterally, moves all extremities and no focal motor deficits Psych cooperative and affect normal Charges/Coding Visit Charges Inpatient E&M: 32301 Subs Hosp L3
[2022-05-01 06:56] LABS: Absolute Lymphocyte Count 0.56 X10^3/uL (0.83-4.51); Absolute Neutrophil Count 10.4 X10^3/uL (2.0-7.7); Basophil# 0.03 X10^3/uL; Basophil% 0.3 % (0-1); Eosinophil# 0.14 X10^3/uL; Eosinophils% 1.2 % (0-5); Hematocrit 21.7 % (37-47); Hemoglobin 6.1 g/dL (12.0-15.0); Lymphocyte # 0.56 X10^3/ul (0.83-4.51); Lymphocyte % 4.7 % (19-41); Mean Corp Hgb Conc 28.1 g/dL (32-36); Mean Corpuscular Hgb 30.3 pg (27.0-32.0); Mean Platelet Vol. 9.1 fl (6.2-12.0); Monocyte# 0.71 X10^3/uL; NRBC Flagged by Analyzer 0 % (0-5); Neutrophil # 10.42 X10^3/uL (2.7-7.7); Neutrophil % 87.4 % (47-70); POSITIVE DIFFERENTIAL YES; POSITIVE MORPHOLOGY YES; Platelet Count 192 K/mm3 (150-450); RBC Distribution Width CV 18.9 % (11.6-14.6); RBC Distribution Width SD 74.3 fl (35.1-43.9); Red Blood Count 2.01 M/mm3 (4.2-5.4); White Blood Count 11.9 K/mm3 (4.4-11.0)
[2022-05-01 07:11] LABS: Differential Indicated SCAN CRITERIA MET
[2022-05-01 07:13] LABS: Ovalocyte RARE
[2022-05-01 07:14] LABS: Anisocytosis 2+; Macrocytosis 1+; Polychromasia RARE
[2022-05-01] MEDS: Lactated Ringers 1,000 ML 999 ML IV (07:50)
--- NOTE | 2022-05-01 08:56 | CT_ITS ---
STUDY: CT ABDOMEN AND PELVIS WITHOUT CONTRAST REASON FOR EXAM: Female, 81 years old. Anemia -- post-op (surgery 04/29/22 RADIATION DOSAGE (If Supplied By Facility): CTDIvol = ( 10.67 ) mGy, DLP = ( 549.17 ) mGycm TECHNIQUE: Transaxial 2.5 mm images were obtained from the dome of the diaphragm to the symphysis pubis without oral contrast, and without intravenous contrast. Sagittal and coronal images were reconstructed. This examination is limited for the evaluation of gastrointestinal, solid organs and vascular structures due to the lack of intravenous and oral contrast. There is obesity, the entirety of soft tissue is not imaged. Individualized dose optimization techniques were used for this CT. COMPARISON: PET scan 04/21/2022. CT chest 04/08/2022. FINDINGS: Bilateral pleural effusion and with adjacent airspace opacification Cardiomegaly, coronary artery calcification, prior sternotomy. No defined liver mass seen on noncontrast imaging. There are surgical clips in the gallbladder fossa consistent with a prior cholecystectomy. There are multiple benign calcified granulomata of the spleen. Accessory splenic tissue. Normal pancreas. Stable mild prominence of bilateral adrenal glands. Right greater than left lobular renal contour. Bilateral small nonobstructing renal calculi versus residual contrast. Normal left kidney. There is a hiatal hernia and postsurgical changes. Multiple fluid and air distention SMALL bowel with adjacent fluid and surgical changes along the anterior lateral right abdomen without obstructive pattern.. Fluid-filled distal transverse to rectal colon. Suture along the right hemicolectomy site with tiny pockets of adjacent air in the mesentery and the subcutaneous midline surgical site. Defined focal abscess. There is small adjacent ascitic fluid at the surgical site and peritoneal thickening with mesenteric stranding. Appendix is surgically absent. Ascitic fluid seen tracking along the left greater than right colonic gutter with mild to moderate fluid in the right lower abdomen extending to the upper pelvis. There is diffuse atherosclerotic calcification of the abdominal aorta, without a demonstrated aneurysm. Normal inferior vena cava. Normal retroperitoneum. SALAZAR catheter decompressing the urinary bladder. Uterus is not visualized. Subcutaneous fluid in the abdomen and pelvis with occasional skin thickening consistent with anasarca. Postsurgical midline abdominal CABG changes, no focal collection or abscess detected. There are diffuse degenerative changes of the visualized lumbar spine and postsurgical lower lumbar spine changes, There is demineralization of osseous structures. No obvious destructive osseous lesion. Calcification anterior longitudinal ligament, loss of vertebral body height along the superior endplate L4. CT/Abdomen/Pelvis without Cont IMPRESSION: Postsurgical changes with fluid and air distention of nonobstructive small bowel and fluid distention of the postsurgical colon. Tiny pockets of air at the surgical anastomosis felt to be secondary to surgical intervention. No abscess or formed collection or significant pneumoperitoneum detected. Mesenteric changes as well as ascites as outlined above. Anasarca. Bilateral pleural effusion, atelectasis, a small component of pneumonia not excluded. Cardiomegaly, coronary artery disease, arteriosclerosis, renal involution felt to be nonacute findings. Osteopenia, degenerative changes, mild loss of vertebral body height along the superior endplate L4 of 25% is indeterminate in age, no acute fracture lines detected. This was seen on the previous PET examination 05/10. Electronically Signed: Ivet Gonzalez MD at 10:03 EST Reading Location ID and State: , Service support ,
[2022-05-01] MEDS: 0.9% Normal Saline 1,000 ML 60 ML IV (09:39)
--- NOTE | 2022-05-01 10:20 | PN.SURG_ITS ---
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 Patient had low systolic blood pressures through the night - given IV bolus fluids Found to have anemic this morning - Hgb 6.1 yesterday 7.5, probably due to fluids and also patient with anemia of chronic disease CT scan obtained - ascites, pockets of air-Ok after recent surgery - patient with decreasing WBC - in my opinion - no evidence of intraabdominal bleeding which is my main concern patient denies abdominal pain Objective Data Objective Data Vital Signs: Vital Signs Temp Pulse Resp BP Pulse Ox O2 Del Method O2 Flow Rate 98.1 F 70 14 123/40 H 94 Room Air 2 05/01/22 09:35 05/01/22 10:00 05/01/22 10:00 05/01/22 10:00 05/01/22 10:00 05/01/22 10:00 04/30/22 07:05 FiO2 30 04/30/22 01:50 Oxygen Flow Rate (L/min) 2 Oxygen Delivery Method Room Air Weight: 71.985 kg Body Mass Index (BMI) 28.0 Intake & Output: Intake and Output for Last 24 Hours 04/29/22 04/30/22 05/01/22 23:59 23:59 23:59 Intake Total 568.87 / 575.81 32274513.14 / 41449792.14 2795.92 / 2795.92 Output Total 825 / 825 350 / 400 100 / 100 Balance -256.13 / -249.19 69293755.14 / 84953565.14 2695.92 / 2695.92 Lab / Micro Data Attestation: I reviewed the patient's lab results. Result Diagrams: 05/01/22 05:35 04/30/22 04:55 Labs: Laboratory Results - last 24 hr 05/01/22 05:35: WBC 11.9 H, RBC 2.01 L, Hgb 6.1 L, Hct 21.7 L, MCV 108.0 H, MCH 30.3, MCHC 28.1 L, RDW Std Deviation 74.3 H, RDW Coeff of Isis 18.9 H, Plt Count 192, MPV 9.1, Immature Gran % (Auto) 0.400, Neut % (Auto) 87.4 H, Lymph % (Auto) 4.7 L, [place] % (Auto) 6.0, Eos % (Auto) 1.2, Baso % (Auto) 0.3, Absolute Neuts (auto) 10.4 H, Absolute Lymphs (auto) 0.56 L, Nucleated RBC % 0, Polychromasia RARE, Anisocytosis 2+, Macrocytosis 1+, Ovalocytes RARE 05/01/22 06:05: Crossmatch See Detail 05/01/22 06:55: Blood Type O NEGATIVE, Antibody Screen NEGATIVE Micro: Microbiology 04/29/22 13:32 Sputum, Induced/Lukens Gram Stain - Final 04/29/22 13:32 Sputum, Induced/Lukens Respiratory Culture - Preliminary Culture exhibits no growth. Radiography Diagnostic Testing: Radiology Impression Abdomen/Pelvis CT 05/01/22 08:56 IMPRESSION: Postsurgical changes with fluid and air distention of nonobstructive small bowel and fluid distention of the postsurgical colon. Tiny pockets of air at the surgical anastomosis felt to be secondary to surgical intervention. No abscess or formed collection or significant pneumoperitoneum detected. Mesenteric changes as well as ascites as outlined above. Anasarca. Bilateral pleural effusion, atelectasis, a small component of pneumonia not excluded. Cardiomegaly, coronary artery disease, arteriosclerosis, renal involution felt to be nonacute findings. Osteopenia, degenerative changes, mild loss of vertebral body height along the superior endplate L4 of 25% is indeterminate in age, no acute fracture lines detected. This was seen on the previous PET examination 05/10. Electronically Signed: Ivet Gonzalez MD at 10:03 EST Reading Location ID and State: , Service support , Physical Exam Const alert and oriented x3 General Appearance: cooperative Neck supple Resp normal respiratory effort Effort and Inspection: able to speak in complete sentences Cardio regular rate GI GI Narrative: abdomen is soft, tender only to deep palpation, dressings intact Assessment & Plan Assessment/Plan (1) Status post colectomy: PLAN: Found to have anemic this morning - Hgb 6.1 yesterday 7.5, probably due to fluids and also patient with anemia of chronic disease CT scan obtained - ascites, pockets of air-Ok after recent surgery - patient with decreasing WBC - in my opinion - no evidence of intraabdominal bleeding which is my main concern Patient will require transfusion, however this is difficult because of patient's antibodies Continue supportive care PLAN: Plan see above
[2022-05-01] MEDS: Potassium Chloride Oral Tablet 20 MEQ PO (11:12)
[2022-05-01] MEDS: Folic Acid 1 MG Tablet PO (11:12)
[2022-05-01] MEDS: Pantoprazole Sodium 40 MG Tablet PO (11:12)
[2022-05-01] MEDS: Sertraline 50 MG Tablet 25 MG PO (11:12)
[2022-05-01] MEDS: busPIRone 5 MG Tablet PO ×2 (11:12→21:25)
[2022-05-01] MEDS: oxyCODONE 5 MG Tablet PO (18:30)
[2022-05-01] MEDS: Ondansetron 4 MG/2 ML Vial IV (20:18)
[2022-05-01] MEDS: 0.9% Saline Lock 10 ML Syringe IV (20:18)
[2022-05-01] MEDS: Atorvastatin Calcium 40 MG Tablet PO (21:25)
[2022-05-01] MEDS: traZODone 50 MG Tablet 100 MG PO (21:25)
[2022-05-01] MEDS: Pramipexole Di-HCl 0.125 MG Tablet PO (21:26)
--- NOTE | 2022-05-01 22:38 | NURSING ---
Addendum entered by Lizzie Lilly 05/02/22 00:47: it was piv in lt wrist that inflitrated Original Note: PIV in rt wrist were levo was running infiltrated. tender and puffy, bp low so rn went to investigate and noticed swelling then pt stated that it was getting sore. piv replaced and levo initiated- will monitor -md notified
[2022-05-02] VITALS (39 sets, daily range): BP systolic 59–159; BP diastolic 30–93; PULSE 56–75; RESP 12–18; TEMP 36.4–36.8; O2SAT 93–100
--- NOTE | 2022-05-02 01:15 | NURSING ---
pt bp and map have been low 1 unit of bld transfused, notified, give second unit and then call surgery in am
[2022-05-02] MEDS: 0.9% Normal Saline 1,000 ML 60 ML IV ×2 (01:51→18:42)
[2022-05-02 05:14] LABS: Absolute Lymphocyte Count 0.53 X10^3/uL (0.83-4.51); Basophil# 0.03 X10^3/uL; Basophil% 0.3 % (0-1); Eosinophil# 0.19 X10^3/uL; Hematocrit 32.1 % (37-47); Hemoglobin 9.6 g/dL (12.0-15.0); Lymphocyte # 0.53 X10^3/ul (0.83-4.51); Lymphocyte % 5.6 % (19-41); Mean Corp Hgb Conc 29.9 g/dL (32-36); Mean Corpuscular Hgb 31.2 pg (27.0-32.0); Mean Corpuscular Volume 104.2 fL (81-99); Mean Platelet Vol. 8.6 fl (6.2-12.0); Monocyte# 0.57 X10^3/uL; Monocyte% 6.1 % (0-10); NRBC Flagged by Analyzer 0 % (0-5); Neutrophil # 8.02 X10^3/uL (2.7-7.7); Neutrophil % 85.5 % (47-70); POSITIVE DIFFERENTIAL YES; POSITIVE MORPHOLOGY YES; Platelet Count 173 K/mm3 (150-450); RBC Distribution Width CV 17.1 % (11.6-14.6); RBC Distribution Width SD 65.4 fl (35.1-43.9); Red Blood Count 3.08 M/mm3 (4.2-5.4); White Blood Count 9.4 K/mm3 (4.4-11.0)
[2022-05-02 05:15] LABS: Differential Indicated SCAN CRITERIA MET
[2022-05-02 05:32] LABS: ALB/GLOB Ratio 0.8 RATIO (0.9-2.4); AST(SGOT) 9 U/L (15-37); Alanine Aminotransfer ALT/SGPT 8 U/L (13-56); Albumin, Serum 1.8 g/dL (3.2-5.0); Alkaline Phosphatase 74 U/L (45-117); Anion Gap 7 (5-15); BUN 13 mg/dL (7-18); BUN/Creat Ratio 19.5 RATIO (10-20); Calcium,Total 7.1 mg/dL (8.5-10.1); Chloride 115 mmol/L (98-107); Creatinine, Serum 0.66 mg/dL (0.55-1.02); EST Glomerular Filtration Rate 91 mL/min (>60); Est Glom Filt Rate - Afr Amer 110 mL/min (>60); Estimated Creatinine Clearance 33.86 ml/min; Globulin 2.4 g/dL (2.2-4.2); Glucose 116 mg/dL (74-106); Potassium 3.7 mmol/L (3.5-5.1); Protein, Total 4.2 g/dL (6.4-8.2); Sodium Level 142 mmol/L (136-145)
[2022-05-02] MEDS: Levothyroxine 112 MCG Tablet PO (06:11)
--- NOTE | 2022-05-02 06:18 | PCM.PN.INT ---
Assessment & Plan Assessment/Plan (1) Respiratory failure: QUALIFIERS: Chronicity: unspecified Respiratory failure complication: unspecified whether with hypoxia or hypercapnia Qualified Code(s): J96.90 - Respiratory failure, unspecified, unspecified whether with hypoxia or hypercapnia PLAN: Plan RECOMMENDATIONS: 1. Wean Levophed as tolerated. Plan to target a systolic blood pressure of 90 mmHg or greater. 2. Continue to monitor H&H and transfuse if hemoglobin drops below 7 g/dL. 3. Discontinue metoprolol. 4. Dietary advancement per general surgery. 5. Encourage incentive spirometer use and mobilize patient as tolerated. IMPRESSIONS: 1. Respiratory failure Resolved. The patient was left intubated following her surgical procedure after she was noted to have a dilated right pupil and concern for acute CVA. The patient was taken emergently for CT imaging of the head, which was unremarkable. The patient was maintained on assist control mode mechanical ventilation and was able to be successfully extubated on April 30. The patient did report that her right pupil was always dilated as a consequence of a prior cataract surgery. Therefore, no additional neurologic work-up is indicated from my perspective. Plan to encourage incentive spirometer use and mobilize patient as tolerated. The patient is maintaining appropriate oxygen saturations on room air at the present time. 2. Hypotension I do suspect that the patient's hypotension was likely secondary to intravascular volume depletion and anemia. The patient did receive supplemental IV fluid hydration along with transfusion of blood products. Her Levophed requirement is being weaned. General surgery is following. Imaging of the abdomen yesterday demonstrated no findings concerning for surgical site infection or bleeding. Continue to monitor H&H and transfuse if hemoglobin drops below 7 g/dL. The patient has not had any fevers and her white count has normalized without antimicrobial therapy. 3. 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 Continue supportive measures as noted above. This note was generated with [employer] dictation software. It may contain incorrect words, spelling, and punctuation that were not noted in checking the note before signing. Subjective Subjective The patient was seen and examined at the bedside this morning. Events from the last 24 hours have been reviewed. The patient is currently afebrile and maintaining appropriate oxygen saturations on room air. She did have to be started on Levophed yesterday to maintain hemodynamic stability. The patient was transfused 2 units packed red blood cells yesterday. Hemoglobin is improved this morning to 9.6 g/dL. Her elevated white count has resolved. The patient denied any abdominal pain today. Objective Data Objective Data The patient's most recent lab work, culture data and imaging studies have all been personally reviewed. Vital Signs: Vital Signs Temp Pulse Resp BP Pulse Ox O2 Del Method O2 Flow Rate 98.2 F 58 L 16 101/42 L 98 Room Air 2 05/02/22 04:37 05/02/22 06:00 05/02/22 06:00 05/02/22 06:00 05/02/22 06:00 05/02/22 06:00 04/30/22 07:05 FiO2 30 04/30/22 01:50 Oxygen Flow Rate (L/min) 2 Oxygen Delivery Method Room Air Weight: 164 lb Body Mass Index (BMI) 28.0 Intake & Output: Intake and Output for Last 24 Hours 04/30/22 05/01/22 05/02/22 23:59 23:59 23:59 Intake Total 24563282.14 / 82678803.14 2927.52 / 2936.92 1986.48 / 1986.48 Output Total 350 / 400 450 / 450 100 / 100 Balance 32012285.14 / 17958159.14 2477.52 / 2486.92 1886.48 / 1886.48 Lab / Micro Data Attestation: I reviewed the patient's lab results. Result Diagrams: 05/02/22 05:00 05/02/22 05:00 Labs: Laboratory Results - last 24 hr 05/01/22 05:35: WBC 11.9 H, RBC 2.01 L, Hgb 6.1 L, Hct 21.7 L, MCV 108.0 H, MCH 30.3, MCHC 28.1 L, RDW Std Deviation 74.3 H, RDW Coeff of Isis 18.9 H, Plt Count 192, MPV 9.1, Immature Gran % (Auto) 0.400, Neut % (Auto) 87.4 H, Lymph % (Auto) 4.7 L, [place] % (Auto) 6.0, Eos % (Auto) 1.2, Baso % (Auto) 0.3, Absolute Neuts (auto) 10.4 H, Absolute Lymphs (auto) 0.56 L, Nucleated RBC % 0, Polychromasia RARE, Anisocytosis 2+, Macrocytosis 1+, Ovalocytes RARE 05/01/22 06:05: Crossmatch See Detail 05/01/22 06:55: Blood Type O NEGATIVE, Antibody Screen NEGATIVE 05/02/22 05:00: WBC 9.4, RBC 3.08 L, Hgb 9.6 L, Hct 32.1 L, MCV 104.2 H, MCH 31.2, MCHC 29.9 L D, RDW Std Deviation 65.4 H, RDW Coeff of Isis 17.1 H, Plt Count 173, MPV 8.6, Immature Gran % (Auto) 0.500, Neut % (Auto) 85.5 H, Lymph % (Auto) 5.6 L, [place] % (Auto) 6.1, Eos % (Auto) 2.0, Baso % (Auto) 0.3, Absolute Neuts (auto) 8.0 H, Absolute Lymphs (auto) 0.53 L, Nucleated RBC % 0 05/02/22 05:00: Sodium 142, Potassium 3.7, Chloride 115 H, Carbon Dioxide 20.0 L, Anion Gap 7, BUN 13, Creatinine 0.66, Estim Creat Clear Calc 33.86, Est GFR (MDRD) Af Amer 110, Est GFR (MDRD) Non-Af 91, BUN/Creatinine Ratio 19.5, Glucose 116 H, Calcium 7.1 L, Total Bilirubin 0.60, AST 9 L, ALT 8 L, Alkaline Phosphatase 74, Total Protein 4.2 L, Albumin 1.8 L, Globulin 2.4, Albumin/Globulin Ratio 0.8 L Micro: Microbiology 04/29/22 13:32 Sputum, Induced/Lukens Gram Stain - Final 04/29/22 13:32 Sputum, Induced/Lukens Respiratory Culture - Preliminary Culture exhibits no growth. Radiography Diagnostic Testing: Radiology Impression Abdomen/Pelvis CT 05/01/22 08:56 IMPRESSION: Postsurgical changes with fluid and air distention of nonobstructive small bowel and fluid distention of the postsurgical colon. Tiny pockets of air at the surgical anastomosis felt to be secondary to surgical intervention. No abscess or formed collection or significant pneumoperitoneum detected. Mesenteric changes as well as ascites as outlined above. Anasarca. Bilateral pleural effusion, atelectasis, a small component of pneumonia not excluded. Cardiomegaly, coronary artery disease, arteriosclerosis, renal involution felt to be nonacute findings. Osteopenia, degenerative changes, mild loss of vertebral body height along the superior endplate L4 of 25% is indeterminate in age, no acute fracture lines detected. This was seen on the previous PET examination 05/10. Electronically Signed: Ivet Gonzalez MD at 10:03 EST Reading Location ID and State: , Service support , Physical Exam Const alert, oriented x3 and no apparent distress General Appearance: cooperative HEENT normocephalic and head/scalp atraumatic Eyes conjunctivae normal Eyes Narrative: Right pupil dilatation Neck supple General: trachea midline Chest inspection of chest normal Resp normal respiratory effort Auscultation: Negative for rales, rhonchi or wheezes Cardio regular rate and regular rhythm GI soft to palpation GI Narrative: Surgical dressing in place. Extremity no clubbing, cyanosis or edema Skin no rashes or lesions noted Neuro CN's II-XII intact bilaterally, moves all extremities and no focal motor deficits Psych cooperative and affect normal Charges/Coding Visit Charges Inpatient E&M: 59709 Subs Hosp L3
[2022-05-02 06:45] LABS: Macrocytosis 1+
[2022-05-02 06:46] LABS: Anisocytosis 1+
[2022-05-02] MEDS: TITRATION PARAMETER CHANGE 1 EACH IV (07:06)
[2022-05-02] MEDS: oxyCODONE 5 MG Tablet PO (08:36)
--- NOTE | 2022-05-02 10:29 | PCM.PN.SRG ---
Subjective Subjective patient notes pain only with movement, when lying still - she states that she has no pain She states that she is passing flatus Objective Data Objective Data Vital Signs: Vital Signs Temp Pulse Resp BP Pulse Ox O2 Del Method O2 Flow Rate 97.5 F L 57 L 15 98/44 L 96 Room Air 2 05/02/22 08:37 05/02/22 08:37 05/02/22 08:37 05/02/22 08:37 05/02/22 08:37 05/02/22 08:37 04/30/22 07:05 FiO2 30 04/30/22 01:50 Oxygen Flow Rate (L/min) 2 Oxygen Delivery Method Room Air Weight: 74.389 kg Body Mass Index (BMI) 28.0 Intake & Output: Intake and Output for Last 24 Hours 04/30/22 05/01/22 05/02/22 23:59 23:59 23:59 Intake Total 44086493.14 / 55940034.14 2927.52 / 2936.92 2035.67 / 2035.67 Output Total 350 / 400 450 / 450 100 / 100 Balance 71025694.14 / 15473495.14 2477.52 / 2486.92 1935.67 / 1935.67 Lab / Micro Data Attestation: I reviewed the patient's lab results. Result Diagrams: 05/02/22 05:00 05/02/22 05:00 Labs: Laboratory Results - last 24 hr 05/01/22 06:05: Crossmatch See Detail 05/02/22 05:00: WBC 9.4, RBC 3.08 L, Hgb 9.6 L, Hct 32.1 L, MCV 104.2 H, MCH 31.2, MCHC 29.9 L D, RDW Std Deviation 65.4 H, RDW Coeff of Isis 17.1 H, Plt Count 173, MPV 8.6, Immature Gran % (Auto) 0.500, Neut % (Auto) 85.5 H, Lymph % (Auto) 5.6 L, [place] % (Auto) 6.1, Eos % (Auto) 2.0, Baso % (Auto) 0.3, Absolute Neuts (auto) 8.0 H, Absolute Lymphs (auto) 0.53 L, Nucleated RBC % 0, Anisocytosis 1+, Macrocytosis 1+ 05/02/22 05:00: Sodium 142, Potassium 3.7, Chloride 115 H, Carbon Dioxide 20.0 L, Anion Gap 7, BUN 13, Creatinine 0.66, Estim Creat Clear Calc 33.86, Est GFR (MDRD) Af Amer 110, Est GFR (MDRD) Non-Af 91, BUN/Creatinine Ratio 19.5, Glucose 116 H, Calcium 7.1 L, Total Bilirubin 0.60, AST 9 L, ALT 8 L, Alkaline Phosphatase 74, Total Protein 4.2 L, Albumin 1.8 L, Globulin 2.4, Albumin/Globulin Ratio 0.8 L Micro: Microbiology 04/29/22 13:32 Sputum, Induced/Lukens Gram Stain - Final 04/29/22 13:32 Sputum, Induced/Lukens Respiratory Culture - Final Culture exhibits no growth. Physical Exam Const alert and oriented x3 General Appearance: cooperative Neck supple Resp normal respiratory effort Effort and Inspection: able to speak in complete sentences Cardio regular rate GI GI Narrative: abdomen is soft with incisional tenderness dressing intact without seepage Assessment & Plan Assessment/Plan (1) Status post colectomy: PLAN: Patient has stabilized since yesterday continue present therapy
[2022-05-02] MEDS: busPIRone 5 MG Tablet PO ×2 (10:37→21:09)
[2022-05-02] MEDS: Folic Acid 1 MG Tablet PO (10:37)
[2022-05-02] MEDS: Sertraline 50 MG Tablet 25 MG PO (10:37)
[2022-05-02] MEDS: Potassium Chloride Oral Tablet 20 MEQ PO (10:37)
[2022-05-02] MEDS: Pantoprazole Sodium 40 MG Tablet PO (10:37)
[2022-05-02] MEDS: Atorvastatin Calcium 40 MG Tablet PO (21:10)
[2022-05-02] MEDS: traZODone 50 MG Tablet 100 MG PO (21:10)
[2022-05-02] MEDS: Pramipexole Di-HCl 0.125 MG Tablet PO (21:10)
[2022-05-02] MEDS: 0.9% Saline Lock 10 ML Syringe IV (21:10)
[2022-05-02] MEDS: Morphine 2 MG/ML Syringe IV (22:50)
[2022-05-03] VITALS (16 sets, daily range): BP systolic 97–193; BP diastolic 37–79; PULSE 63–89; RESP 13–20; TEMP 36.4–36.8; O2SAT 93–100
[2022-05-03] MEDS: Levothyroxine 112 MCG Tablet PO (05:50)
[2022-05-03 06:38] LABS: Absolute Lymphocyte Count 0.61 X10^3/uL (0.83-4.51); Absolute Neutrophil Count 8.3 X10^3/uL (2.0-7.7); Basophil# 0.04 X10^3/uL; Basophil% 0.4 % (0-1); Eosinophil# 0.26 X10^3/uL; Eosinophils% 2.7 % (0-5); Hematocrit 35.3 % (37-47); Hemoglobin 10.1 g/dL (12.0-15.0); Lymphocyte # 0.61 X10^3/ul (0.83-4.51); Lymphocyte % 6.3 % (19-41); Mean Corp Hgb Conc 28.6 g/dL (32-36); Mean Corpuscular Hgb 31.7 pg (27.0-32.0); Mean Corpuscular Volume 110.7 fL (81-99); Mean Platelet Vol. 9.1 fl (6.2-12.0); Monocyte# 0.53 X10^3/uL; Monocyte% 5.4 % (0-10); NRBC Flagged by Analyzer 0 % (0-5); Neutrophil # 8.26 X10^3/uL (2.7-7.7); Neutrophil % 84.6 % (47-70); POSITIVE MORPHOLOGY YES; Platelet Count 156 K/mm3 (150-450); RBC Distribution Width CV 16.7 % (11.6-14.6); RBC Distribution Width SD 68.7 fl (35.1-43.9); Red Blood Count 3.19 M/mm3 (4.2-5.4); White Blood Count 9.8 K/mm3 (4.4-11.0)
[2022-05-03 06:42] LABS: ALB/GLOB Ratio 0.6 RATIO (0.9-2.4); AST(SGOT) 6 U/L (15-37); Alanine Aminotransfer ALT/SGPT 11 U/L (13-56); Albumin, Serum 1.8 g/dL (3.2-5.0); Alkaline Phosphatase 89 U/L (45-117); Anion Gap 8 (5-15); BUN 10 mg/dL (7-18); BUN/Creat Ratio 18.3 RATIO (10-20); Calcium,Total 7.2 mg/dL (8.5-10.1); Chloride 116 mmol/L (98-107); Creatinine, Serum 0.55 mg/dL (0.55-1.02); EST Glomerular Filtration Rate 114 mL/min (>60); Est Glom Filt Rate - Afr Amer 138 mL/min (>60); Estimated Creatinine Clearance 33.86 ml/min; Globulin 2.9 g/dL (2.2-4.2); Glucose 110 mg/dL (74-106); Protein, Total 4.7 g/dL (6.4-8.2); Sodium Level 141 mmol/L (136-145)
[2022-05-03 06:57] LABS: Differential Indicated SCAN CRITERIA MET
--- NOTE | 2022-05-03 07:05 | PN.CC_ITS ---
Assessment & Plan Assessment/Plan (1) Respiratory failure: QUALIFIERS: Chronicity: unspecified Respiratory failure complication: unspecified whether with hypoxia or hypercapnia Qualified Code(s): J96.90 - Respiratory failure, unspecified, unspecified whether with hypoxia or hypercapnia PLAN: Plan RECOMMENDATIONS: 1. Discontinue Levophed 2. Continue to monitor H&H and transfuse if hemoglobin drops below 7 g/dL. 3. Restart metoprolol if patient remains hypertensive. 4. Dietary advancement per general surgery. 5. Encourage incentive spirometer use and mobilize patient as tolerated. IMPRESSIONS: 1. Respiratory failure Resolved. The patient was left intubated following her surgical procedure after she was noted to have a dilated right pupil and concern for acute CVA. The patient was taken emergently for CT imaging of the head, which was unremarkable. The patient was successfully extubated on April 30. The patient did report that her right pupil was always dilated as a consequence of a prior cataract surgery. Therefore, no additional neurologic work-up is indicated from my perspective. Plan to encourage incentive spirometer use and mobilize patient as tolerated. The patient is maintaining appropriate oxygen saturations on room air at the present time. Continue to encourage incentive spirometer to avoid future complications 2. Hypotension I do suspect that the patient's hypotension was likely secondary to intravascular volume depletion and anemia. The patient did receive supplemental IV fluid hydration along with transfusion of blood products. Patient now hypertensive, so Levophed can be discontinued. General surgery is following. Continue to monitor H&H and transfuse if hemoglobin drops below 7 g/dL. The patient has not had any fevers and her white count has normalized without antimicrobial therapy. 3. 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 Continue supportive measures as noted above. This note was generated with [employer] dictation software. It may contain incorrect words, spelling, and punctuation that were not noted in checking the note before signing. Subjective Subjective Patient did well overnight. No acute issues were reported. Patient has had s ome elevated blood pressures overnight. Patient subjectively feels improved. Patient is passing gas and is asking about advancement of diet. Objective Data Objective Data Vital Signs: Vital Signs Temp Pulse Resp BP Pulse Ox O2 Del Method O2 Flow Rate 36.8 C 89 16 172/55 H 93 Room Air 2 05/03/22 03:00 05/03/22 06:00 05/03/22 06:00 05/03/22 06:00 05/03/22 06:00 05/03/22 06:00 04/30/22 07:05 FiO2 30 04/30/22 01:50 Oxygen Flow Rate (L/min) 2 Oxygen Delivery Method Room Air Weight: 74.162 kg Body Mass Index (BMI) 28.0 Intake & Output: Intake and Output for Last 24 Hours 05/01/22 05/02/22 05/03/22 23:59 23:59 23:59 Intake Total 2927.52 / 2936.92 3731.68 / 3831.68 100 / 100 Output Total 450 / 450 350 / 350 Balance 2477.52 / 2486.92 3381.68 / 3481.68 100 / 100 Lab / Micro Data Attestation: I reviewed the patient's lab results. Result Diagrams: 05/03/22 05:40 05/03/22 05:40 Labs: Laboratory Results - last 24 hr 05/03/22 05:40: WBC 9.8, RBC 3.19 L, Hgb 10.1 L, Hct 35.3 L, MCV 110.7 H D, MCH 31.7, MCHC 28.6 L, RDW Std Deviation 68.7 H, RDW Coeff of Isis 16.7 H, Plt Count 156, MPV 9.1, Immature Gran % (Auto) 0.600, Neut % (Auto) 84.6 H, Lymph % (Auto) 6.3 L, [place] % (Auto) 5.4, Eos % (Auto) 2.7, Baso % (Auto) 0.4, Absolute Neuts (auto) 8.3 H, Absolute Lymphs (auto) 0.61 L, Nucleated RBC % 0 05/03/22 05:40: Sodium 141, Potassium 4.0, Chloride 116 H, Carbon Dioxide 17.0 L , Anion Gap 8, BUN 10, Creatinine 0.55, Estim Creat Clear Calc 33.86, Est GFR (MDRD) Af Amer 138, Est GFR (MDRD) Non-Af 114, BUN/Creatinine Ratio 18.3, Glucose 110 H, Calcium 7.2 L, Total Bilirubin 0.70, AST 6 L, ALT 11 L, Alkaline Phosphatase 89, Total Protein 4.7 L, Albumin 1.8 L, Globulin 2.9, Albumin/Globulin Ratio 0.6 L Micro: Microbiology 04/29/22 13:32 Sputum, Induced/Lukens Gram Stain - Final 04/29/22 13:32 Sputum, Induced/Lukens Respiratory Culture - Final Culture exhibits no growth. Physical Exam Const alert, oriented x3 and no apparent distress General Appearance: cooperative HEENT normocephalic and head/scalp atraumatic Eyes EOMs intact bilaterally and conjunctivae normal Eyes Narrative: Right pupil dilatation (baseline) Neck supple General: trachea midline Chest inspection of chest normal Resp normal respiratory effort and no use of accessory muscles Auscultation: Negative for rales, rhonchi or wheezes Cardio regular rate, regular rhythm, S1 normal heart sound, S2 normal heart sound, no murmurs, no rub and no gallops GI soft to palpation GI Narrative: Surgical dressing in place. Palpation: Negative for guarding or rigid Extremity no clubbing, cyanosis or edema Skin no rashes or lesions noted Neuro CN's II-XII intact bilaterally, moves all extremities and no focal motor deficits Neuro Narrative: Alert and following commands appropriately. Psych cooperative and affect normal Charges/Coding Visit Charges Inpatient E&M: 07331 Subs Hosp L3
[2022-05-03 07:15] LABS: Anisocytosis 1+; Macrocytosis 2+
--- NOTE | 2022-05-03 08:19 | PCM.PN.SRG ---
Subjective Subjective Patient says that she did have some nausea with the ensures but tolerated clears otherwise very well. No nausea or vomiting. She has had flatus and several liquid bowel movements. Her abdominal pain is well controlled and she only has pain with movement. Objective Data Objective Data Vital Signs: Vital Signs Temp Pulse Resp BP Pulse Ox O2 Del Method O2 Flow Rate 98.2 F 66 16 110/40 L 99 Room Air 2 05/03/22 03:00 05/03/22 07:00 05/03/22 07:00 05/03/22 07:00 05/03/22 07:00 05/03/22 07:00 04/30/22 07:05 FiO2 30 04/30/22 01:50 Oxygen Flow Rate (L/min) 2 Oxygen Delivery Method Room Air Weight: 163 lb 8 oz Body Mass Index (BMI) 28.0 Intake & Output: Intake and Output for Last 24 Hours 05/01/22 05/02/22 05/03/22 23:59 23:59 23:59 Intake Total 2927.52 / 2936.92 3731.68 / 3831.68 100 / 100 Output Total 450 / 450 350 / 350 300 / 300 Balance 2477.52 / 2486.92 3381.68 / 3481.68 -200 / -200 Lab / Micro Data Result Diagrams: 05/03/22 05:40 05/03/22 05:40 Labs: Laboratory Results - last 24 hr 05/03/22 05:40: WBC 9.8, RBC 3.19 L, Hgb 10.1 L, Hct 35.3 L, MCV 110.7 H D, MCH 31.7, MCHC 28.6 L, RDW Std Deviation 68.7 H, RDW Coeff of Isis 16.7 H, Plt Count 156, MPV 9.1, Immature Gran % (Auto) 0.600, Neut % (Auto) 84.6 H, Lymph % (Auto) 6.3 L, [place] % (Auto) 5.4, Eos % (Auto) 2.7, Baso % (Auto) 0.4, Absolute Neuts (auto) 8.3 H, Absolute Lymphs (auto) 0.61 L, Nucleated RBC % 0, Anisocytosis 1+, Macrocytosis 2+ 05/03/22 05:40: Sodium 141, Potassium 4.0, Chloride 116 H, Carbon Dioxide 17.0 L, Anion Gap 8, BUN 10, Creatinine 0.55, Estim Creat Clear Calc 33.86, Est GFR (MDRD) Af Amer 138, Est GFR (MDRD) Non-Af 114, BUN/Creatinine Ratio 18.3, Glucose 110 H, Calcium 7.2 L, Total Bilirubin 0.70, AST 6 L, ALT 11 L, Alkaline Phosphatase 89, Total Protein 4.7 L, Albumin 1.8 L, Globulin 2.9, Albumin/Globulin Ratio 0.6 L Micro: Microbiology 04/29/22 13:32 Sputum, Induced/Lukens Gram Stain - Final 04/29/22 13:32 Sputum, Induced/Lukens Respiratory Culture - Final Culture exhibits no growth. Physical Exam Const oriented x3 and no apparent distress Resp normal respiratory effort GI soft to palpation and non-tender Assessment & Plan Assessment/Plan (1) Status post colectomy: PLAN: Patient received a blood transfusion over the weekend due to anemia. She had a CT scan that did not show ongoing bleeding. She is currently off pressors and tolerating clears. I will advance her to a transitional diet. PT and OT will see her today for placement needs. I will resume her Plavix. Addy Teran MD Pager: [facility] [address] [place] [address], [address] [place] [address] Office:
[2022-05-03] MEDS: oxyCODONE 5 MG Tablet PO ×2 (08:23→13:02)
[2022-05-03] MEDS: Acetaminophen 325 MG Tablet 650 MG PO ×2 (08:24→23:27)
[2022-05-03] MEDS: Sertraline 50 MG Tablet 25 MG PO (08:25)
[2022-05-03] MEDS: Potassium Chloride Oral Tablet 20 MEQ PO (08:25)
[2022-05-03] MEDS: Folic Acid 1 MG Tablet PO (08:25)
[2022-05-03] MEDS: Pantoprazole Sodium 40 MG Tablet PO (08:25)
[2022-05-03] MEDS: busPIRone 5 MG Tablet PO ×2 (08:25→21:21)
[2022-05-03] MEDS: Clopidogrel Bisulfate 75 MG Tablet PO (10:42)
[2022-05-03] MEDS: traZODone 50 MG Tablet 100 MG PO (21:21)
[2022-05-03] MEDS: Atorvastatin Calcium 40 MG Tablet PO (21:21)
[2022-05-03] MEDS: Pramipexole Di-HCl 0.125 MG Tablet PO (21:21)
[2022-05-04] VITALS (8 sets, daily range): BP systolic 119–142; BP diastolic 42–95; PULSE 65–78; RESP 13–18; TEMP 36.5–36.8; O2SAT 95–100
[2022-05-04] MEDS: 0.9% Normal Saline 1,000 ML 60 ML IV (02:39)
[2022-05-04] MEDS: Levothyroxine 112 MCG Tablet PO (05:35)
[2022-05-04 05:45] LABS: Absolute Lymphocyte Count 0.34 X10^3/uL (0.83-4.51); Absolute Neutrophil Count 7.3 X10^3/uL (2.0-7.7); Basophil# 0.02 X10^3/uL; Basophil% 0.2 % (0-1); Eosinophil# 0.18 X10^3/uL; Eosinophils% 2.2 % (0-5); Hematocrit 31.3 % (37-47); Hemoglobin 9.1 g/dL (12.0-15.0); Lymphocyte # 0.34 X10^3/ul (0.83-4.51); Lymphocyte % 4.1 % (19-41); Mean Corp Hgb Conc 29.1 g/dL (32-36); Mean Corpuscular Hgb 31.7 pg (27.0-32.0); Mean Corpuscular Volume 109.1 fL (81-99); Mean Platelet Vol. 9.1 fl (6.2-12.0); Monocyte# 0.37 X10^3/uL; Monocyte% 4.5 % (0-10); NRBC Flagged by Analyzer 0 % (0-5); Neutrophil # 7.26 X10^3/uL (2.7-7.7); Neutrophil % 88.5 % (47-70); POSITIVE COUNT YES; POSITIVE DIFFERENTIAL YES; POSITIVE MORPHOLOGY YES; Platelet Count 90 K/mm3 (150-450); RBC Distribution Width CV 16.7 % (11.6-14.6); RBC Distribution Width SD 67.7 fl (35.1-43.9); Red Blood Count 2.87 M/mm3 (4.2-5.4); White Blood Count 8.2 K/mm3 (4.4-11.0)
[2022-05-04 05:51] LABS: Differential Indicated SCAN CRITERIA MET
[2022-05-04 05:58] LABS: Anion Gap 8 (5-15); BUN 9 mg/dL (7-18); BUN/Creat Ratio 15.7 RATIO (10-20); Calcium,Total 7.4 mg/dL (8.5-10.1); Chloride 115 mmol/L (98-107); Creatinine, Serum 0.57 mg/dL (0.55-1.02); EST Glomerular Filtration Rate 108 mL/min (>60); Est Glom Filt Rate - Afr Amer 130 mL/min (>60); Estimated Creatinine Clearance 33.86 ml/min; Glucose 94 mg/dL (74-106); Potassium 3.8 mmol/L (3.5-5.1); Sodium Level 142 mmol/L (136-145)
[2022-05-04 06:27] LABS: Anisocytosis 1+; Differential Comment SCANNED; Macrocytosis 1+; Platelet Estimate SLT DEC (ADEQ)
[2022-05-04] MEDS: Acetaminophen 325 MG Tablet 650 MG PO (06:39)
--- NOTE | 2022-05-04 06:47 | PN.CC_ITS ---
Assessment & Plan Assessment/Plan (1) Respiratory failure: QUALIFIERS: Chronicity: unspecified Respiratory failure complication: unspecified whether with hypoxia or hypercapnia Qualified Code(s): J96.90 - Respiratory failure, unspecified, unspecified whether with hypoxia or hypercapnia PLAN: Plan RECOMMENDATIONS: 1. Discontinue IV fluids 2. Continue to monitor H&H and transfuse if hemoglobin drops below 7 g/dL. 3. Likely restart metoprolol as an outpatient 4. Dietary advancement per general surgery. 5. Encourage incentive spirometer use and mobilize patient as tolerated. 6. Hemodynamically stable on room air. Will sign off from a critical care perspective IMPRESSIONS: 1. Respiratory failure Resolved. The patient was left intubated following her surgical procedure after she was noted to have a dilated right pupil and concern for acute CVA. The patient was taken emergently for CT imaging of the head, which was unremarkable. The patient was successfully extubated on April 30. The patient did report that her right pupil was always dilated as a consequence of a prior cataract surgery. Therefore, no additional neurologic work-up is indicated from my perspective. Plan to encourage incentive spirometer use and mobilize patient as tolerated. The patient is maintaining appropriate oxygen saturations on room air at the present time. Continue to encourage incentive spirometer to avoid future complications 2. Hypotension I do suspect that the patient's hypotension was likely secondary to intravascular volume depletion and anemia. The patient did receive supplemental IV fluid hydration along with transfusion of blood products. Patient does a ppear to be developing a hyperchloremic metabolic acidosis, so IV fluids will be discontinued. Patient is tolerating p.o. well. Given relative stability, will sign off from a critical care perspective. Metoprolol can likely be reinitiated by PCP once patient has had additional time to heal. 3. 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 Continue supportive measures as noted above. This note was generated with [employer] dictation software. It may contain incorrect words, spelling, and punctuation that were not noted in checking the note before signing. Subjective Subjective Patient did well overnight. No acute issues were reported. Patient has been able to get up and move around the room without orthostatic symptoms. Patient states pain is well controlled. Patient is tolerating p.o. intake, but reports mild anorexia. Objective Data Objective Data Vital Signs: Vital Signs Temp Pulse Resp BP Pulse Ox O2 Del Method O2 Flow Rate 36.5 C L 66 13 138/44 H 100 Room Air 2 05/04/22 02:15 05/04/22 02:05/04/22 02:05/04/22 02:05/04/22 02:05/04/22 02:15 04/30/22 07:05 FiO2 30 04/30/22 01:50 Oxygen Flow Rate (L/min) 2 Oxygen Delivery Method Room Air Weight: 75.795 kg Body Mass Index (BMI) 28.0 Intake & Output: Intake and Output for Last 24 Hours 05/02/22 05/03/22 05/04/22 23:59 23:59 23:59 Intake Total 3731.68 / 3831.68 1250 / 1280 50 / 50 Output Total 350 / 350 300 / 450 250 / 250 Balance 3381.68 / 3481.68 950 / 830 -200 / -200 Lab / Micro Data Attestation: I reviewed the patient's lab results. Result Diagrams: 05/04/22 05:34 05/04/22 05:34 Labs: Laboratory Results - last 24 hr 05/03/22 05:40: WBC 9.8, RBC 3.19 L, Hgb 10.1 L, Hct 35.3 L, MCV 110.7 H D, MCH 31.7, MCHC 28.6 L, RDW Std Deviation 68.7 H, RDW Coeff of Isis 16.7 H, Plt Count 156, MPV 9.1, Immature Gran % (Auto) 0.600, Neut % (Auto) 84.6 H, Lymph % (Auto) 6.3 L, [place] % (Auto) 5.4, Eos % (Auto) 2.7, Baso % (Auto) 0.4, Absolute Neuts (auto) 8.3 H, Absolute Lymphs (auto) 0.61 L, Nucleated RBC % 0, Anisocytosis 1+, Macrocytosis 2+ 05/04/22 05:34: WBC 8.2, RBC 2.87 L, Hgb 9.1 L, Hct 31.3 L, MCV 109.1 H, MCH 31.7, MCHC 29.1 L, RDW Std Deviation 67.7 H, RDW Coeff of Isis 16.7 H, Plt Count 90 L, MPV 9.1, Immature Gran % (Auto) 0.500, Neut % (Auto) 88.5 H, Lymph % ( Auto) 4.1 L, [place] % (Auto) 4.5, Eos % (Auto) 2.2, Baso % (Auto) 0.2, Absolute Neuts (auto) 7.3, Absolute Lymphs (auto) 0.34 L, Nucleated RBC % 0, Differential Comment SCANNED, Platelet Estimate SLT DEC, Anisocytosis 1+, Macrocytosis 1+ 05/04/22 05:34: Sodium 142, Potassium 3.8, Chloride 115 H, Carbon Dioxide 19.0 L , Anion Gap 8, BUN 9, Creatinine 0.57, Estim Creat Clear Calc 33.86, Est GFR (MDRD) Af Amer 130, Est GFR (MDRD) Non-Af 108, BUN/Creatinine Ratio 15.7, Glucose 94, Calcium 7.4 L Micro: Microbiology 04/29/22 13:32 Sputum, Induced/Lukens Gram Stain - Final 04/29/22 13:32 Sputum, Induced/Lukens Respiratory Culture - Final Culture exhibits no growth. Physical Exam Const alert, oriented x3 and no apparent distress General Appearance: cooperative HEENT normocephalic and head/scalp atraumatic Eyes EOMs intact bilaterally, conjunctivae normal and no scleral icterus Eyes Narrative: Right pupil dilatation (baseline) Neck supple General: trachea midline Chest inspection of chest normal Resp normal respiratory effort and no use of accessory muscles Auscultation: Negative for rales, rhonchi or wheezes Cardio regular rate, regular rhythm, S1 normal heart sound, S2 normal heart sound, no murmurs, no rub and no gallops GI soft to palpation GI Narrative: Surgical dressing in place. Palpation: Negative for guarding or rigid Extremity no clubbing, cyanosis or edema Skin no rashes or lesions noted Neuro CN's II-XII intact bilaterally, moves all extremities and no focal motor deficits Neuro Narrative: Alert and following commands appropriately. Psych cooperative and affect normal Charges/Coding Visit Charges Inpatient E&M: 90527 Subs Hosp L2
[2022-05-04] MEDS: Folic Acid 1 MG Tablet PO (07:52)
[2022-05-04] MEDS: Pantoprazole Sodium 40 MG Tablet PO (08:57)
[2022-05-04] MEDS: Clopidogrel Bisulfate 75 MG Tablet PO (08:57)
[2022-05-04] MEDS: busPIRone 5 MG Tablet PO ×2 (08:57→21:20)
[2022-05-04] MEDS: Potassium Chloride Oral Tablet 20 MEQ PO (08:58)
[2022-05-04] MEDS: Sertraline 50 MG Tablet 25 MG PO (08:58)
--- NOTE | 2022-05-04 10:07 | PN.SURG_ITS ---
Subjective Subjective Patient did well overnight. She tolerated her transitional diet yesterday evening. She reports no nausea or vomiting. She is passing flatus and liquid bowel movements. Objective Data Objective Data Vital Signs: Vital Signs Temp Pulse Resp BP Pulse Ox O2 Del Method O2 Flow Rate 98.0 F 66 14 139/95 H 95 Room Air 2 05/04/22 08:15 05/04/22 08:15 05/04/22 08:15 05/04/22 08:15 05/04/22 08:15 05/04/22 08:15 04/30/22 07:05 FiO2 30 04/30/22 01:50 Oxygen Flow Rate (L/min) 2 Oxygen Delivery Method Room Air Weight: 167 lb 1.6 oz Body Mass Index (BMI) 28.0 Intake & Output: Intake and Output for Last 24 Hours 05/02/22 05/03/22 05/04/22 23:59 23:59 23:59 Intake Total 3731.68 / 3831.68 1250 / 1280 306 / 306 Output Total 350 / 350 300 / 450 250 / 250 Balance 3381.68 / 3481.68 950 / 830 56 / 56 Lab / Micro Data Result Diagrams: 05/04/22 05:34 05/04/22 05:34 Labs: Laboratory Results - last 24 hr 05/04/22 05:34: WBC 8.2, RBC 2.87 L, Hgb 9.1 L, Hct 31.3 L, MCV 109.1 H, MCH 31.7, MCHC 29.1 L, RDW Std Deviation 67.7 H, RDW Coeff of Isis 16.7 H, Plt Count 90 L, MPV 9.1, Immature Gran % (Auto) 0.500, Neut % (Auto) 88.5 H, Lymph % (Auto) 4.1 L, [place] % (Auto) 4.5, Eos % (Auto) 2.2, Baso % (Auto) 0.2, Absolute Neuts (auto) 7.3, Absolute Lymphs (auto) 0.34 L, Nucleated RBC % 0, Differential Comment SCANNED, Platelet Estimate SLT DEC, Anisocytosis 1+, Macrocytosis 1+ 05/04/22 05:34: Sodium 142, Potassium 3.8, Chloride 115 H, Carbon Dioxide 19.0 L , Anion Gap 8, BUN 9, Creatinine 0.57, Estim Creat Clear Calc 33.86, Est GFR (MDRD) Af Amer 130, Est GFR (MDRD) Non-Af 108, BUN/Creatinine Ratio 15.7, Glucose 94, Calcium 7.4 L Micro: Microbiology 04/29/22 13:32 Sputum, Induced/Lukens Gram Stain - Final 04/29/22 13:32 Sputum, Induced/Lukens Respiratory Culture - Final Culture exhibits no growth. Physical Exam Const no apparent distress Resp normal respiratory effort GI soft to palpation and non-tender Assessment & Plan Assessment/Plan (1) Status post colectomy: PLAN: Patient reports overall she is doing well. I will advance her to a re gular diet today. Working on discharge planning with PT and OT as the patient is daughter think she is not able to come home and needs ECF. Patient was transferred out of ICU status yesterday. Addy Teran MD Pager: [facility] [address] [place] [address], [address] [place] [address] Office:
--- NOTE | 2022-05-04 11:19 | CASEMGMT ---
Addendum entered by Sarah Birmingham 05/04/22 16:32: [facility] responded they are reviewing referral but may not have a bed available until the weekend. Contacted [facility], admissions for [facility] - they are reviewing and will provide answer tomorrow. Spoke with Darlyn, admissions at [facility] and they only accept male patients. SW provided hand-off to covering SW. Addendum entered by Sarah Birmingham 05/04/22 15:09: SW followed up with pt about SNF choices. Pt prefers [facility], [facility], [facility]. Referrals made via [facility]. Original Note: Social Work Per therapy recommendations, pt can DC home with help. However, pt lives home alone and does not have any family that can assist. SW met with pt in room. Introduced self and role. Inquired about pt's goals for DC. Pt acknowledged she needs assistance and cannot return home alone at this time. SW offered SNF stay. Pt agreed. SW provided pt with printed list of [facility] SNFs, in network with insurance, including quality and resource data via CarePort Guide. Encouraged pt to choose 2-3 facilities and this worker will make referrals. Educated pt to precert process. Pt expressed understanding and will contact this worker when SNF choices are selected. SW offered to contact family to update - pt denied. SW to continue to follow. 7000 started in . Plan: DC to SNF for skilled, short stay, pending precert Sarah Birmingham, DANIELLE PATTONW
--- NOTE | 2022-05-04 11:31 | CASEMGMT ---
Social Work As per nursing assessment, pt has LW and POA, daughter is POA. She is not able to bring in the documents at this time. IMMANUEL Roche
[2022-05-04] MEDS: 0.9% Saline Lock 10 ML Syringe IV ×2 (15:28→21:20)
[2022-05-04] MEDS: Ondansetron 4 MG/2 ML Vial IV (15:28)
[2022-05-04 17:51] LABS: Absolute Lymphocyte Count 0.28 X10^3/uL (0.83-4.51); Absolute Neutrophil Count 8.4 X10^3/uL (2.0-7.7); Basophil# 0.02 X10^3/uL; Basophil% 0.2 % (0-1); Eosinophil# 0.12 X10^3/uL; Eosinophils% 1.3 % (0-5); Hematocrit 29.7 % (37-47); Hemoglobin 9.1 g/dL (12.0-15.0); Lymphocyte # 0.28 X10^3/ul (0.83-4.51); Mean Corp Hgb Conc 30.6 g/dL (32-36); Mean Corpuscular Hgb 31.6 pg (27.0-32.0); Mean Corpuscular Volume 103.1 fL (81-99); Mean Platelet Vol. 8.3 fl (6.2-12.0); Monocyte# 0.48 X10^3/uL; Monocyte% 5.1 % (0-10); NRBC Flagged by Analyzer 0 % (0-5); Neutrophil # 8.42 X10^3/uL (2.7-7.7); Neutrophil % 90.1 % (47-70); POSITIVE DIFFERENTIAL YES; Platelet Count 156 K/mm3 (150-450); RBC Distribution Width CV 16.7 % (11.6-14.6); RBC Distribution Width SD 62.8 fl (35.1-43.9); Red Blood Count 2.88 M/mm3 (4.2-5.4); White Blood Count 9.4 K/mm3 (4.4-11.0)
[2022-05-04 17:55] LABS: Differential Indicated SCAN CRITERIA MET
[2022-05-04] MEDS: Atorvastatin Calcium 40 MG Tablet PO (21:20)
[2022-05-04] MEDS: Pramipexole Di-HCl 0.125 MG Tablet PO (21:20)
[2022-05-04] MEDS: traZODone 50 MG Tablet 100 MG PO (21:20)
[2022-05-05] MEDS: Levothyroxine 112 MCG Tablet PO (05:08)
[2022-05-05 05:12] VITALS: BP 117/46; PULSE 68; RESP 18; TEMP 37.1; O2SAT 95
[2022-05-05 06:48] LABS: Anion Gap 9 (5-15); BUN 9 mg/dL (7-18); BUN/Creat Ratio 14.4 RATIO (10-20); Calcium,Total 7.4 mg/dL (8.5-10.1); Chloride 117 mmol/L (98-107); Creatinine, Serum 0.63 mg/dL (0.55-1.02); EST Glomerular Filtration Rate 97 mL/min (>60); Est Glom Filt Rate - Afr Amer 117 mL/min (>60); Estimated Creatinine Clearance 33.86 ml/min; Glucose 86 mg/dL (74-106); Potassium 4.1 mmol/L (3.5-5.1); Sodium Level 143 mmol/L (136-145)
[2022-05-05 07:02] LABS: Absolute Lymphocyte Count 0.33 X10^3/uL (0.83-4.51); Absolute Neutrophil Count 8.2 X10^3/uL (2.0-7.7); Basophil# 0.01 X10^3/uL; Basophil% 0.1 % (0-1); Eosinophil# 0.08 X10^3/uL; Eosinophils% 0.9 % (0-5); Hemoglobin 8.5 g/dL (12.0-15.0); Lymphocyte # 0.33 X10^3/ul (0.83-4.51); Lymphocyte % 3.6 % (19-41); Mean Corp Hgb Conc 29.3 g/dL (32-36); Mean Corpuscular Hgb 31.3 pg (27.0-32.0); Mean Corpuscular Volume 106.6 fL (81-99); Mean Platelet Vol. 8.6 fl (6.2-12.0); Monocyte# 0.54 X10^3/uL; Monocyte% 5.9 % (0-10); NRBC Flagged by Analyzer 0 % (0-5); Neutrophil # 8.16 X10^3/uL (2.7-7.7); Neutrophil % 89.1 % (47-70); POSITIVE COUNT YES; POSITIVE DIFFERENTIAL YES; POSITIVE MORPHOLOGY YES; Platelet Count 155 K/mm3 (150-450); RBC Distribution Width CV 16.8 % (11.6-14.6); RBC Distribution Width SD 65.8 fl (35.1-43.9); Red Blood Count 2.72 M/mm3 (4.2-5.4); White Blood Count 9.2 K/mm3 (4.4-11.0)
[2022-05-05 07:03] LABS: Differential Indicated SCAN CRITERIA MET
[2022-05-05 07:22] LABS: Anisocytosis 1+; Differential Comment SCANNED; Platelet Estimate ADEQUATE (ADEQ)
[2022-05-05 07:59] VITALS: BP 120/42; PULSE 72; RESP 18; TEMP 36.6; O2SAT 95
[2022-05-05] MEDS: Acetaminophen 325 MG Tablet 650 MG PO (08:07)
[2022-05-05] MEDS: Sertraline 50 MG Tablet 25 MG PO (08:08)
[2022-05-05] MEDS: busPIRone 5 MG Tablet PO ×2 (08:08→21:28)
[2022-05-05] MEDS: Clopidogrel Bisulfate 75 MG Tablet PO (08:08)
[2022-05-05] MEDS: Potassium Chloride Oral Tablet 20 MEQ PO (08:08)
[2022-05-05] MEDS: Pantoprazole Sodium 40 MG Tablet PO (08:08)
[2022-05-05 08:18] VITALS: RESP 18
[2022-05-05] MEDS: Folic Acid 1 MG Tablet PO (08:23)
[2022-05-05 09:37] VITALS: BP 136/42; PULSE 76; RESP 18; TEMP 36.7; O2SAT 100
--- NOTE | 2022-05-05 10:18 | CASEMGMT ---
SVETLANA received a call from [employer] at [facility] and they can accept patient. Dayanna will start pre-cert. SVETLANA will notify patient. Plan: d/c to [facility] pending per-cert. Dana MARCUS
--- NOTE | 2022-05-05 14:29 | CASEMGMT ---
SVETLANA notified patient that [facility] will be able to take her. SVETLANA told patient we will just need to wait on her insurance to approve her. Plan: [facility] pending insurance approval Dana MARCUS
[2022-05-05 14:56] VITALS: BP 99/44; PULSE 60; RESP 18; TEMP 36.6; O2SAT 100
[2022-05-05 21:20] VITALS: BP 109/44; PULSE 65; RESP 18; TEMP 36.8; O2SAT 98
[2022-05-05] MEDS: traZODone 50 MG Tablet 100 MG PO (21:28)
[2022-05-05] MEDS: Pramipexole Di-HCl 0.125 MG Tablet PO (21:28)
[2022-05-05] MEDS: Atorvastatin Calcium 40 MG Tablet PO (21:28)
[2022-05-06 03:49] VITALS: BP 111/54; PULSE 66; RESP 16; TEMP 36.7; O2SAT 98
[2022-05-06] MEDS: Levothyroxine 112 MCG Tablet PO (05:25)
[2022-05-06 08:16] VITALS: BP 131/42; PULSE 65; RESP 18; TEMP 36.7; O2SAT 97
[2022-05-06] MEDS: Folic Acid 1 MG Tablet PO (08:18)
[2022-05-06] MEDS: Clopidogrel Bisulfate 75 MG Tablet PO (08:18)
[2022-05-06] MEDS: Acetaminophen 325 MG Tablet 650 MG PO (08:18)
[2022-05-06] MEDS: Potassium Chloride Oral Tablet 20 MEQ PO (08:18)
[2022-05-06] MEDS: Sertraline 50 MG Tablet 25 MG PO (08:18)
[2022-05-06] MEDS: busPIRone 5 MG Tablet PO (08:19)
[2022-05-06] MEDS: Pantoprazole Sodium 40 MG Tablet PO (08:19)
--- NOTE | 2022-05-06 10:21 | PCM.PN.SRG ---
Subjective Subjective Patient reports passing flatus and bowel movements with no blood in them. She notes that no nausea or vomiting and she is tolerating diet. Objective Data Objective Data Vital Signs: Vital Signs Temp Pulse Resp BP Pulse Ox O2 Del Method O2 Flow Rate 98.1 F 65 18 131/42 H 97 Room Air 2 05/06/22 08:16 05/06/22 08:16 05/06/22 08:16 05/06/22 08:16 05/06/22 08:16 05/06/22 08:16 04/30/22 07:05 FiO2 30 04/30/22 01:50 Oxygen Flow Rate (L/min) 2 Oxygen Delivery Method Room Air Weight: 167 lb 12.348 oz Body Mass Index (BMI) 28.0 Intake & Output: Intake and Output for Last 24 Hours 05/04/22 05/05/22 05/06/22 23:59 23:59 23:59 Intake Total 306 / 306 800 / 800 Output Total 250 / 250 Balance 56 / 56 800 / 800 Lab / Micro Data Result Diagrams: 05/05/22 06:53 05/05/22 05:35 Micro: Microbiology 04/29/22 13:32 Sputum, Induced/Lukens Gram Stain - Final 04/29/22 13:32 Sputum, Induced/Lukens Respiratory Culture - Final Culture exhibits no growth. Physical Exam Const oriented x3 Resp normal respiratory effort GI soft to palpation and non-tender Assessment & Plan Assessment/Plan (1) Status post colectomy: PLAN: Patient is doing well. She is tolerating diet and her pain is well controlled. Her labs seems stable. Awaiting insurance approval to discharge her to [facility]. She has been accepted at a facility. Addy Teran MD Pager: [facility] [address] [place] [address], [address] [place] [address] Office:
--- NOTE | 2022-05-06 10:22 | TREXTCAR_ITS ---
Diet Diet Order/Speech Therapy: 05/04/22 08:02 Diet: Regular - General Is pt able to select menu?: Yes Wound(s) ABD: Wound Type: Surgical Incision Therapies Weight Bearing: Full weight bearing (no lifting over 20 lbs for 4 weeks) Physical Therapy: Eval and Treat Occupational Therapy: Eval and Treat Problem/Diagnosis (1) Status post colectomy: Status: Acute Code(s): Z90.49 - Acquired absence of other specified parts of digestive tract Plan: Patient is doing well. She is tolerating diet and her pain is well controlled. Her labs seems stable. Awaiting insurance approval to discharge her to [facility]. She has been accepted at a facility. Addy Teran MD Pager: [facility] [address] [place] [address], [address] [place] [phone] Office: Allergies/Procedures Done in Hospital Allergies Sulfa (Sulfonamide Antibiotics) Allergy (Verified 04/29/22 06:40) Hives ibuprofen Adverse Reaction (Verified 04/29/22 06:40) IT AFFECTS MY KIDNEYS Type of Care/Length of Stay Estimated LOS: Convalescent Care Less Than 30 days Type of Care Needed: Skilled Rehab Potential: Good Prognosis: Good Additional Orders/Day of Discharge Day of Discharge: 05/06/22 Dietary and Speech Recommendations Dietitian Recommendations/Changes: consider regular/fiber restricted diet if pt continues to complain of GI discomfort w/ regular diet PO intake. Will d/c Ensure w/ medpass given pt refusal, PO intake at meals is encouraged. Follow Up Care Please Follow Up With: Addy Teran MD When: Please call to schedule 1 week follow up appointment. [phone] Discharge Plan Admission Admit Date/Time: 04/29/22 05:23 Attending Provider: Addy Teran Primary Care Provider: Stanislav Crowe Consulting Providers: Kt Rosas ; Milo Chapin ; Fredrick Kyle ; Tommy Thurman ; Nathalia Villarreal STAFF ASSISTANT Discharge Orders/Prescriptions Prescriptions: New acetaminophen [Tylenol] 325 mg Tablet 650 mg PO Q4H PRN PRN (Reason: PAIN 1-10/FEVER) Qty: 0 0RF Continued multivitamin [Daily Multi-Vitamin] Tablet 1 tab PO DAILY metoprolol succinate 50 mg tablet extended release 24 hr 50 mg PO DAILY Label Comments: TAKE 1 TABLET BY MOUTH ONCE DAILY Culturelle 10 billion cell capsule 1 cap PO DAILY atorvastatin 40 mg tablet 40 mg PO QHS cholecalciferol (vitamin D3) 50 mcg (2,000 unit) capsule 50 mcg PO DAILY clopidogrel [Plavix] 75 mg tablet 75 mg PO DAILY levothyroxine 112 mcg capsule 112 mcg PO DAILY polyethylene glycol 3350 [Miralax] 17 gram/dose powder 4 g PO DAILY melatonin 5 mg capsule 10 mg PO QHS PRN (Reason: Sleep) pramipexole 0.125 mg tablet 0.125 mg PO QHS trazodone 50 MG tablet 100 mg PO QHS Label Comments: SLEEP omeprazole 20 MG capsule 20 mg PO DAILY Label Comments: ACID REFLUX folic acid 1 MG tablet 0.8 mg PO DAILY Label Comments: SUPPLEMENT cyanocobalamin (vitamin B-12) 1,000 MCG/ML solution 1,000 mcg IM QMONTH potassium chloride 20 mEq Tablet Extended Release 20 meq PO DAILY buspirone 5 mg Tablet 5 mg PO BID sertraline 25 mg Tablet 25 mg PO DAILY Discontinued metronidazole 500 mg tablet See Rx Instructions PO DAILY Rx Instructions: 1 tab PO at 1300, 1200, and 2300 the day before surgery neomycin 500 mg tablet See Rx Instructions PO .COMPLEX Rx Instructions: 2 tabs PO at 1300, 1200, and 2300 the day before surgery Referrals / Follow Up: Stanislav Crowe MD [Primary Care Provider] -
--- NOTE | 2022-05-06 11:57 | PCM.DC.SUM ---
Providers Date of Admission: 04/29/22 Primary Care Physician: Dr. Stanislav Crowe MD Consultations 04/29/22 13:07 Consult: Furniture Finisher / Pulmonary Medicine Routine Consulting Provider: Pulmonary Medicine lulu Samayoa Reason for Consult: ICU EMERGENT Consult: Yes MD Notified: Yes Date Notified: 04/29/22 Time Notified: 12:57 Method of Notification: Verbal Reason For Visit: ERAS, LAP RT FATOU COLECTOMY Diagnosis Discharge Diagnosis (1) Status post colectomy: Status: Acute Code(s): Z90.49 - Acquired absence of other specified parts of digestive tract Medications at Discharge Home Medications folic acid 1 mg tablet 0.8 mg PO DAILY SUPPLEMENT 08/26/16 omeprazole 20 mg capsule,delayed release 20 mg PO DAILY GERD 08/26/16 trazodone 50 mg tablet 100 mg PO QHS Check with primary doctor 08/26/16 cyanocobalamin (vitamin B-12) 1,000 mcg/mL injection solution 1,000 mcg IM QMONTH SUPPLEMENT 01/24/17 Lactobacillus rhamnosus GG 10 billion cell capsule (Culturelle) 1 cap PO DAILY SUPPLEMENT 04/07/22 atorvastatin 40 mg tablet 40 mg PO QHS CHOLESTEROL 04/07/22 cholecalciferol (vitamin D3) 50 mcg (2,000 unit) capsule 50 mcg PO DAILY SUPPLEMENT 04/07/22 clopidogrel 75 mg tablet (Plavix) 75 mg PO DAILY BLOOD THINNER 04/07/22 levothyroxine 112 mcg capsule 112 mcg PO DAILY THYROID 04/07/22 melatonin 5 mg capsule 10 mg PO QHS PRN Sleep 04/07/22 metoprolol succinate 50 mg tablet,extended release 24 hr 50 mg PO DAILY BP 04/07/22 multivitamin (Daily Multi-Vitamin tablet) 1 tab PO DAILY SUPPLEMENT 04/07/22 polyethylene glycol 3350 17 gram/dose oral powder (Miralax) 4 g PO DAILY CONSTIPATION 04/07/22 pramipexole 0.125 mg tablet 0.125 mg PO QHS RESTLESS LEGS 04/07/22 buspirone 5 mg tablet 5 mg PO BID ANXIETY 04/23/22 potassium chloride 20 mEq tablet,extended release 20 meq PO DAILY SUPPLEMENT 04/23/22 sertraline 25 mg tablet 25 mg PO DAILY DEPRESSION 04/23/22 acetaminophen 325 mg tablet (Tylenol) 650 mg PO Q4H PRN PRN PAIN 1-10/FEVER #0 tabs 05/06/22 Hospital Course Operations - (Laparoscopic converted to open right hemicolectomy with primary anastomosis) Summary of Care Provided Minutes Spent on Discharge: 25 Hospital Course: Patient is an 81 y/o F s/p laparoscopic converted to open right hemicolectomy with primary anastomosis by Dr. Teran on 04/29/22. Patient tolerated the procedure well. She became lethargic post-operatively and had neurologic changes. Stroke-team was alerted and CT of the brain was completed and negative for any stroke. Patient was admitted to the ICU intubated. She was extubated on 04/30. Patient was to be transferred to cardiac step-down and patient developed bradycardia patient remained in the unit. Remaining of the patient's hospital stay was uneventful. Upon discharge, patient's vitals are stable. Patient is passing flatus and having bowel movements. Patient denies nausea, vomiting. Patient is tolerating her diet. She notes pain is well controlled. Patient is recommended to follow-up with Dr. Teran in 1 week. Physical Exam Const alert and oriented x3 Resp normal respiratory effort and clear to auscultation bilaterally Cardio regular rate and regular rhythm GI GI Narrative: Abdomen- soft, non-tender. Incisions c/d/i. Weight / BMI Weight Weight: 167 lb 12.348 oz Body Mass Index (BMI) 28.0 ABG / Lab / Microbiology Data Result Diagrams: 05/05/22 06:53 05/05/22 05:35 Microbiology: Microbiology 04/29/22 13:32 Sputum, Induced/Lukens Gram Stain - Final 04/29/22 13:32 Sputum, Induced/Lukens Respiratory Culture - Final Culture exhibits no growth. D/C Instructions Please Follow Up With: Addy Teran MD Meaningful Use Info Meaningful Use Diagnoses (Choose all that apply): None applicable Discharge Plan Admission Admit Date/Time: 04/29/22 05:23 Primary Reason for Your Visit: s/p colectomy Attending Provider: Addy Teran Primary Care Provider: Stanislav Crowe Consulting Providers: Kt Rosas ; Milo Chapin ; Fredrick Kyle ; Tommy Thurman ; Nathalia Villarreal RECORD TABULATING CLERK Discharge Orders/Prescriptions Prescriptions: New acetaminophen [Tylenol] 325 mg Tablet 650 mg PO Q4H PRN PRN (Reason: PAIN 1-10/FEVER) Qty: 0 0RF Continued multivitamin [Daily Multi-Vitamin] Tablet 1 tab PO DAILY metoprolol succinate 50 mg tablet extended release 24 hr 50 mg PO DAILY Label Comments: TAKE 1 TABLET BY MOUTH ONCE DAILY Culturelle 10 billion cell capsule 1 cap PO DAILY atorvastatin 40 mg tablet 40 mg PO QHS cholecalciferol (vitamin D3) 50 mcg (2,000 unit) capsule 50 mcg PO DAILY clopidogrel [Plavix] 75 mg tablet 75 mg PO DAILY levothyroxine 112 mcg capsule 112 mcg PO DAILY polyethylene glycol 3350 [Miralax] 17 gram/dose powder 4 g PO DAILY melatonin 5 mg capsule 10 mg PO QHS PRN (Reason: Sleep) pramipexole 0.125 mg tablet 0.125 mg PO QHS trazodone 50 MG tablet 100 mg PO QHS Label Comments: SLEEP omeprazole 20 MG capsule 20 mg PO DAILY Label Comments: ACID REFLUX folic acid 1 MG tablet 0.8 mg PO DAILY Label Comments: SUPPLEMENT cyanocobalamin (vitamin B-12) 1,000 MCG/ML solution 1,000 mcg IM QMONTH potassium chloride 20 mEq Tablet Extended Release 20 meq PO DAILY buspirone 5 mg Tablet 5 mg PO BID sertraline 25 mg Tablet 25 mg PO DAILY Discontinued metronidazole 500 mg tablet See Rx Instructions PO DAILY Rx Instructions: 1 tab PO at 1300, 1200, and 2300 the day before surgery neomycin 500 mg tablet See Rx Instructions PO .COMPLEX Rx Instructions: 2 tabs PO at 1300, 1200, and 2300 the day before surgery Referrals / Follow Up: Stanislav Crowe MD [Primary Care Provider] - Disposition Disposition (needs filled in before D/C Order can be placed): [facility] Charges/Coding Visit Charges Inpatient E&M: 86795 Disch Hosp (no charge)
--- NOTE | 2022-05-06 12:17 | CASEMGMT ---
SVETLANA received notification that patient was approved. SW notified physician, RN, hospice patient care secretary, and patient. Patient also asked SW to notify her daughter. SW called patient's daughter Saray and let her know. Saray would like a call when a time has been set up. Await orders. Dana Ch BRICK KILN BURNER AMRIT
--- NOTE | 2022-05-06 13:56 | PHA.DC.MR ---
Pharmacy Service has performed discharge medication reconciliation for this patient upon transfer to [facility]. Home Medications folic acid 1 mg tablet 0.8 mg PO DAILY SUPPLEMENT 08/26/16 omeprazole 20 mg capsule,delayed release 20 mg PO DAILY GERD 08/26/16 trazodone 50 mg tablet 100 mg PO QHS Check with primary doctor 08/26/16 cyanocobalamin (vitamin B-12) 1,000 mcg/mL injection solution 1,000 mcg IM QMONTH SUPPLEMENT 01/24/17 Lactobacillus rhamnosus GG 10 billion cell capsule (Culturelle) 1 cap PO DAILY SUPPLEMENT 04/07/22 atorvastatin 40 mg tablet 40 mg PO QHS CHOLESTEROL 04/07/22 cholecalciferol (vitamin D3) 50 mcg (2,000 unit) capsule 50 mcg PO DAILY SUPPLEMENT 04/07/22 clopidogrel 75 mg tablet (Plavix) 75 mg PO DAILY BLOOD THINNER 04/07/22 levothyroxine 112 mcg capsule 112 mcg PO DAILY THYROID 04/07/22 melatonin 5 mg capsule 10 mg PO QHS PRN Sleep 04/07/22 metoprolol succinate 50 mg tablet,extended release 24 hr 50 mg PO DAILY BP 04/07/22 multivitamin (Daily Multi-Vitamin tablet) 1 tab PO DAILY SUPPLEMENT 04/07/22 polyethylene glycol 3350 17 gram/dose oral powder (Miralax) 4 g PO DAILY CONSTIPATION 04/07/22 pramipexole 0.125 mg tablet 0.125 mg PO QHS RESTLESS LEGS 04/07/22 buspirone 5 mg tablet 5 mg PO BID ANXIETY 04/23/22 potassium chloride 20 mEq tablet,extended release 20 meq PO DAILY SUPPLEMENT 04/23/22 sertraline 25 mg tablet 25 mg PO DAILY DEPRESSION 04/23/22 acetaminophen 325 mg tablet (Tylenol) 650 mg PO Q4H PRN PRN PAIN 1-10/FEVER #0 tabs 05/06/22 The patient's discharge medication list was reviewed for discrepancies and discrepancies were resolved.
--- NOTE | 2022-05-06 14:17 | CASEMGMT ---
SVETLANA sent orders and COVID test to [facility] via [employer]. SVETLANA completed a 7000 in [place]. SVETLANA arranged for patient to get picked up by [facility] by wheelchair at 3p. SVETLANA notified patient, RN, charger operator helper, certified legal secretary specialist, Dayanna at [facility], and patient's daughter Saray. All in agreement with d/c plan. Plan: d/c to [facility] under skilled level of care on a convalescent stay. [facility] will transport via wheelchair van. Dana Ch SECOND CRUSHER MULTIMEDIA EDITOR
[2022-05-06 14:36] VITALS: BP 100/41; PULSE 66; RESP 18; TEMP 36.7; O2SAT 99
--- NOTE | 2022-05-06 14:46 | NURSING ---
This RN called and gave report to INÉS Grubbs at [facility].
== END 2022-05-06 15:04 | disposition skilled nursing facility (03) | DRG 329 ==
LOC: ACINP 06:54 → ICU 13:55 → PCU 05-04 16:02
PROVIDERS: Internal Medicine Critical Care Medicine; Admitting Provider Surgery; PCP Internal Medicine; Referring Provider Surgery; Visit Provider Surgery
PROC: 0DTF0ZZ Resection of Right Large Intestine, Open Approach (ICD-10-PCS; CPT 44205; principal; 2022-04-29 07:10)
DX: C18.3 Malignant neoplasm of hepatic flexure (principal); R57.1 Hypovolemic shock; D59.10 Autoimmune hemolytic anemia, unspecified; I08.2 Rheumatic disorders of both aortic and tricuspid valves; D63.8 Anemia in other chronic diseases classified elsewhere; E78.00 Pure hypercholesterolemia, unspecified; I10 Essential (primary) hypertension; E03.9 Hypothyroidism, unspecified; I25.10 Atherosclerotic heart disease of native coronary artery without angina pectoris; I95.81 Postprocedural hypotension; I25.2 Old myocardial infarction; F41.9 Anxiety disorder, unspecified; F32.A Depression, unspecified; Z53.31 Laparoscopic surgical procedure converted to open procedure; Z95.1 Presence of aortocoronary bypass graft; Z90.710 Acquired absence of both cervix and uterus; Z79.02 Long term (current) use of antithrombotics/antiplatelets; Z79.899 Other long term (current) drug therapy; Z45.2 Encounter for adjustment and management of vascular access device
CPT/HCPCS: 31500; 31720; 36415; 70450; 70496; 70498; 71045; 74176; 80048; 80053; 82378; 82550; 82962; 83010; 83735; 84100; 84132; 84443; 84478; 85025; 85045; 85610; 85730; 86850; 86880; 86900; 86901; 86902; 86920; 86922; 87070; 87205; 87426; 88309; 88341; 88342; 93005; 94002; 94003; 94660; 97110; 97116; 97162; 97166; 97530; 97535; 97803; 99252; J7030; J7050; J7120; P9016; Q9967; A4216; C1760; G0463; J2310; J2405; J3010; J3475

== ENCOUNTER 2022-06-02 02:53 | Inpatient (IN) | payer MEDICARE, OTHER, SELFPAY ==
[2022-06-02] VITALS (13 sets, daily range): BP systolic 99–126; BP diastolic 36–105; PULSE 56–64; RESP 14–18; TEMP 36.6–36.8; O2SAT 97–100; BMI 29.5
[2022-06-02 03:42] LABS: Absolute Lymphocyte Count 0.51 X10^3/uL (0.83-4.51); Absolute Neutrophil Count 10.5 X10^3/uL (2.0-7.7); Basophil# 0.02 X10^3/uL; Basophil% 0.2 % (0-1); Eosinophil# 0.04 X10^3/uL; Eosinophils% 0.3 % (0-5); Hematocrit 21.8 % (37-47); Hemoglobin 6.4 g/dL (12.0-15.0); Lymphocyte # 0.51 X10^3/ul (0.83-4.51); Lymphocyte % 4.4 % (19-41); Mean Corp Hgb Conc 29.4 g/dL (32-36); Mean Platelet Vol. 9.1 fl (6.2-12.0); Monocyte% 3.5 % (0-10); NRBC Flagged by Analyzer 0 % (0-5); Neutrophil # 10.54 X10^3/uL (2.7-7.7); Neutrophil % 90.9 % (47-70); POSITIVE DIFFERENTIAL YES; POSITIVE MORPHOLOGY YES; Platelet Count 172 K/mm3 (150-450); White Blood Count 11.6 K/mm3 (4.4-11.0)
[2022-06-02 04:05] LABS: ALB/GLOB Ratio 0.8 RATIO (0.9-2.4); AST(SGOT) 13 U/L (15-37); Alanine Aminotransfer ALT/SGPT 16 U/L (13-56); Albumin, Serum 2.1 g/dL (3.2-5.0); Alkaline Phosphatase 111 U/L (45-117); Anion Gap 6 (5-15); BUN 22 mg/dL (7-18); BUN/Creat Ratio 29.4 RATIO (10-20); Calcium,Total 7.4 mg/dL (8.5-10.1); Chloride 116 mmol/L (98-107); Creatinine, Serum 0.75 mg/dL (0.55-1.02); EST Glomerular Filtration Rate 79 mL/min (>60); Est Glom Filt Rate - Afr Amer 96 mL/min (>60); Estimated Creatinine Clearance 35.49 ml/min; Globulin 2.6 g/dL (2.2-4.2); Glucose 135 mg/dL (74-106); Potassium 3.8 mmol/L (3.5-5.1); Protein, Total 4.7 g/dL (6.4-8.2); Sodium Level 145 mmol/L (136-145)
[2022-06-02 04:09] LABS: Differential Indicated SCAN CRITERIA MET
[2022-06-02 04:11] LABS: Anisocytosis 1+; Differential Comment SCANNED; Hypochromasia 1+; Macrocytosis 1+; Microcytosis RARE
--- NOTE | 2022-06-02 04:44 | PCM.CONS.GEN ---
Assessment & Plan Assessment/Plan (1) Postoperative external wound disruption: (2) Acute on chronic anemia: PLAN: Plan #Concern for postoperative wound infection CT abdomen pelvis from outlying facility showed 1.7 x 1.8 anterior abdominal fluid collection N.p.o., Surgery primary White blood cell count was 11.6 and joint pain appeared to be purulent material was easily expelled from small upper wound area Vancomycin and Zosyn started for broad coverage while awaiting possible intervention, cultures ordered Presently receiving hydration #Acute on chronic macrocytic anemia Widely variable but at present is 6.4, patient does not note any signs or symptoms of bleeding We will obtain B12, folic acid, iron panel, fecal occult Typed and crossed, apparently has difficulty locating blood that can be safely transfused, 2 units ordered Given difficulty obtaining blood and there is no overt signs or symptoms of bleeding at this time will avoid frequent blood draws to monitor hemoglobin so as not to contribute to the problem BP is on soft side, currently receiving fluids, will start antibiotics as well given visualized purulent material #Peripheral edema 2+ bilateral lower extremity pitting edema and a CT that showed anasarca last month Did appreciate murmur at upper sternal border, will obtain echo at this time Did not note any new changes in breathing and will hold off on any Lasix Presently being hydrated, monitor closely #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 Teran Was advised to follow-up with hematology and oncology #Hypothyroidism Continue Synthroid #DVT ppx: SCDs Emily Jewell MD Time spent in the patient's overall evaluation,decision-making process, review of diagnostic data, adjustment of management, discussion with other providers, nursing nursing and ancillary staff involved in patient's care documentation, 51 Minutes HPI Consult Data Date of Consult: 06/02/22 HPI Narrative Reason for Consultation: post op anemia, concern for wound infection HPI Narrative: EVE GARCIA, is a 81 F with a history of chronic anemia, osteoarthritis, hypertension, hypothyroidism, and colonic mass removed [address] Teran which was subsequently found to be invasive adenocarcinoma with mucinous differentiation who presented as a transfer from [facility] 06/02/2022 where she presented with purulent drainage from upper portion of her abdominal incision. She reports overall she was in her usual health and was recovering after the surgery until yesterday she sat up and the tip of the incision opened and began to drain purulent material and continued to do so and she went to the hospital. There they found a hemoglobin of 6.[address] obtained in the ER showed 1.7 x 1.8 anterior fluid collection in the abdomen. Surgery was contacted by the [facility] facility and patient was transferred and hospitalist consulted for medical management. Upon arrival to our facility patient's repeat hemoglobin was 6.4 though she was unable to be transfused at [facility] prior to transfer. She was evaluated in room and reported feeling roughly unchanged, she has had some generalized swelling primarily in lower extremities over several weeks which she feels is slightly better though present, does note some shortness of breath on exertion at times which she does not believe is new, denies any significant abdominal pain and denied any pain, erythema, drainage from the wound prior to this. Denies fevers. Does have some watery or loose stools which have been present since her surgery she reports without blood, no nausea vomiting. Did not have any other acute complaints at this time [facility] Medical History (Updated 06/02/22 @ 05:[address] Emily Jewell MD) Ambulates with cane Anemia Anxiety Arthritis Autoimmune hemolytic anemia Back pain Cancer Cardiology follow-up encounter Carotid artery stenosis Carpal tunnel syndrome Chest pain Colon cancer Coronary artery disease Depression Diabetes Diverticulitis Gastric reflux GERD (gastroesophageal reflux disease) Hemolytic anemia Hiatal hernia High cholesterol High cholesterol History of echocardiogram History of edema History of steroid therapy History of stress test History of stress test HTN (hypertension) Hx of fracture of femur Hx of fracture of wrist Hx of reduction of open fracture Hyperlipidemia Hypertension Hypothyroid Hypothyroidism Iron deficiency anemia due to chronic blood loss Liver lesion Low iron Lung nodule Lung nodules Moderate tricuspid regurgitation Myocardial infarct Non-smoker Osteoarthritis Osteoporosis Other nonspecific abnormal finding of lung field Restless legs Shortness of breath on exertion synthroid induced DM Thrombocytopenia Thyroid disease Walker as ambulation aid Wears glasses Home Medications folic acid 1 mg tablet 1 mg PO DAILY SUPPLEMENT 08/26/16 [History Last Taken 08/26/16] omeprazole 20 mg capsule,delayed release 20 mg PO DAILY GERD 08/26/16 [History Last Taken 08/26/16] trazodone 50 mg tablet 100 mg PO QHS Check with primary doctor 08/26/16 [History Last Taken 08/25/16] cyanocobalamin (vitamin B-12) 1,000 mcg/mL injection solution 1,000 mcg IM QMONTH SUPPLEMENT 01/24/17 [History Last Taken 05/07/22] atorvastatin 40 mg tablet 40 mg PO QHS CHOLESTEROL 04/07/22 [History Last Taken 05/31/22] cholecalciferol (vitamin D3) 50 mcg (2,000 unit) capsule 50 mcg PO DAILY SUPPLEMENT 04/07/22 [History Last Taken Unknown] levothyroxine 112 mcg capsule 112 mcg PO DAILY THYROID 04/07/22 [History Last Taken Unknown] melatonin 5 mg capsule 10 mg PO QHS PRN Sleep 04/07/22 [History Last Taken Unknown] metoprolol succinate 50 mg tablet,extended release 24 hr 50 mg PO DAILY BP 04/07/22 [History Last Taken Unknown] multivitamin (Daily Multi-Vitamin tablet) 1 tab PO DAILY SUPPLEMENT 04/07/22 [History Last Taken Unknown] polyethylene glycol 3350 17 gram/dose oral powder (Miralax) 17 g PO DAILY CONSTIPATION 04/07/22 [History Last Taken Unknown] pramipexole 0.125 mg tablet 0.125 mg PO QHS RESTLESS LEGS 04/07/22 [History Last Taken Unknown] buspirone 5 mg tablet 5 mg PO BID ANXIETY 04/23/22 [History Last Taken Unknown] potassium chloride 20 mEq tablet,extended release 20 meq PO DAILY SUPPLEMENT 04/23/22 [History Last Taken Unknown] sertraline 25 mg tablet 25 mg PO DAILY DEPRESSION 04/23/22 [History Last Taken Unknown] acetaminophen 325 mg tablet (Tylenol) 650 mg PO Q4H PRN PRN PAIN 1-10/FEVER #0 tabs 05/06/22 [Rx Last Taken Unknown] Allergy/AdvReac Type Severity Reaction Status Date / Time Sulfa (Sulfonamide Allergy Hives Verified 05/17/22 07:52 Antibiotics) ibuprofen AdvReac IT Verified 05/17/22 07:52 AFFECTS MY KIDNEYS Family History Brother Myocardial infarction Cancer lung Father , 61 yrs Cancer lung Mother , 86 yrs Alzheimer disease Surgical History (Updated 06/02/22 @ 02:34 by Shira Martinez) H/O: hysterectomy History of ankle surgery History of appendectomy History of carpal tunnel release History of cholecystectomy History of coronary artery bypass graft History of laparoscopic cholecystectomy History of repair of hiatal hernia Hx of CABG S/P hysterectomy Status post colectomy Social History household members: none Smoking Status: Never smoker alcohol intake: never substance use type: does not use ROS ROS Narrative General: Denies fever or chills HENT: Denies headache, denies stuffy nose, denies sore throat EYES: Denies changes in vision Resp: Denies cough, sometimes will have some shortness of breath on exertion unchanged Cardiac: Denies chest pain GI: Denies abdominal pain, reports chronic somewhat looser stools without blood : Denies changes in urination Extremity: 2+ lower extremity edema which she reports is better than it had been MSK: Denies weakness Neuro: Denies any numbness, denies tingling Heme: Denies any bleeding or bruising Skin: Has small opening with drainage at upper portion of incision Psychiatric: No complaints voiced Lab / Micro Data Result Diagrams: 06/02/22 03:32 06/02/22 03:32 Labs: Laboratory Results - last 24 hr 06/02/22 03:32: WBC 11.6 H, RBC 2.00 L, Hgb 6.4 L, Hct 21.8 L, MCV 109.0 H, MCH 32.0, MCHC 29.4 L, RDW Std Deviation 67.0 H, RDW Coeff of Isis 18.0 H, Plt Count 172, MPV 9.1, Immature Gran % (Auto) 0.700, Neut % (Auto) 90.9 H, Lymph % (Auto) 4.4 L, [place] % (Auto) 3.5, Eos % (Auto) 0.3, Baso % (Auto) 0.2, Absolute Neuts (auto) 10.5 H, Absolute Lymphs (auto) 0.51 L, Nucleated RBC % 0, Differential Comment SCANNED, Hypochromasia 1+, Anisocytosis 1+, Microcytosis RARE, Macrocytosis 1+ 06/02/22 03:32: Sodium 145, Potassium 3.8, Chloride 116 H, Carbon Dioxide 23.0, Anion Gap 6, BUN 22 H, Creatinine 0.75, Estim Creat Clear Calc 35.49, Est GFR (MDRD) Af Amer 96, Est GFR (MDRD) Non-Af 79, BUN/Creatinine Ratio 29.4 H, Glucose 135 H, Calcium 7.4 L, Total Bilirubin 1.20 H, AST 13 L, ALT 16, Alkaline Phosphatase 111, Total Protein 4.7 L, Albumin 2.1 L, Globulin 2.6, Albumin/Globulin Ratio 0.8 L Charges/Coding Visit Charges Office Visits / Consults: [id number] IP Consult L2
--- NOTE | 2022-06-02 05:25 | ECHOCS_ITS ---
Reason For Study: Murmur Procedure This was a 2D Doppler, Color Flow transthoracic echocardiogram. The study was technically difficult. Contrast injection was performed. Exam performed portable in patient room. Left Ventricle Normal LV size. Moderate concentric left ventricular hypertrophy. D shaped septum in systole and diastole. Based upon the 2D echocardiographic and contrast enhanced images obtained there appears to be grossly normal left ventricular size, wall motion, and systolic function. The estimated ejection fraction is 65 %. Stage 3 diastolic dysfunction. Right Ventricle Moderately dilated right ventricle. Mild global right ventricular systolic dysfunction. Atria The left atrium is mildly enlarged. The right atrium is moderately enlarged. No doppler evidence for ASD. Mitral Valve There is mild mitral annular calcification. Extension of the mitral annular calcification onto the base of the posterior mitral valve leaflet. Moderate (2+) mitral valve insufficiency. Tricuspid Valve Normal tricuspid valve. Moderately severe (3+) eccentric tricuspid valve insufficiency. Right ventricular systolic pressure estimated to be 53 mmHg. Aortic Valve Trisinus/trileaflet aortic valve. Moderate focal aortic valve calcification. Pulmonic Valve The pulmonic valve is not well visualized. Trivial pulmonic valve insufficiency. Great Vessels Normal sized aortic root. Pericardium/Pleural No pericardial effusion. Echolucency compatible with a pleural effusion. Medication Diluted definity 1ml given slow IV push to enhance endocardial definition. MMode/2D Measurements & Calculations LVIDd: 4.1 cm IVSd: 1.5 cm Ao root diam: 2.7 cm LVIDs: 2.4 cm LVPWd: 1.3 cm LA dimension: 4.5 cm RVDd: 4.7 cm FS: 40.7 % LAV(MOD-bp): 53.6 ml LA A4 area: 19.1 cm2 RA A4 area: 21.4 cm2 LAV(MOD-bp) Indexed: 31.7 ml/m2 LAV(MOD-sp2): 56.9 ml LAV(MOD-sp4): 45.3 ml Time Measurements MV dec time: 0.17 sec Doppler Measurements & Calculations MV E max geoffrey: 125.7 cm/sec Lat Peak E' Geoffrey: 8.7 cm/sec Med Peak E' Geoffrey: 7.9 cm/sec MV A max geoffrey: 46.3 cm/sec E/E' lat: 14.5 E/E' med: 16.0 MV E/A: 2.7 MV V2 max: 135.7 cm/sec MV P1/2t max geoffrey: 136.6 cm/sec Ao V2 max: 197.3 cm/sec MV max P.4 mmHg MV P1/2t: 78.8 msec Ao max P.6 mmHg MV V2 mean: 55.7 cm/sec MV dec slope: 507.5 cm/sec2 MV mean P.7 mmHg MV V2 VTI: 33.8 cm MVA(P1/2t): 2.8 cm2 LV V1 max: 85.9 cm/sec MR max geoffrey: 518.8 cm/sec PA V2 max: 72.3 cm/sec LV V1 max P.0 mmHg MR max P.7 mmHg LV V1 mean P.9 mmHg MR mean geoffrey: 420.8 cm/sec LV V1 mean: 65.6 cm/sec MR mean P.2 mmHg LV V1 VTI: 21.8 cm MR VTI: 194.4 cm TR max geoffrey: 353.9 cm/sec TR max P.1 mmHg ECHO/Echo Complete W/ Contrast Interpretation Summary The study was technically difficult. Contrast injection was performed. Based upon the 2D echocardiographic and contrast enhanced images obtained there appears to be grossly normal left ventricular size, wall motion, and systolic function. The estimated ejection fraction is 65 %. Moderate concentric left ventricular hypertrophy. D shaped septum in systole and diastole. Moderately dilated right ventricle. Mild global right ventricular systolic dysfunction. The left atrium is mildly enlarged. The right atrium is moderately enlarged. There is mild mitral annular calcification. Extension of the mitral annular calcification onto the base of the posterior mi tral valve leaflet. Moderate (2+) mitral valve insufficiency. Moderately severe (3+) eccentric tricuspid valve insufficiency. Moderate focal aortic valve calcification. Trivial pulmonic valve insufficiency. Echolucency compatible with a pleural effusion. Right ventricular systolic pressure estimated to be 53 mmHg compatible with pul monary hypertension. Stage 3 diastolic dysfunction. Ordering Physician: Emily Jewell Performed By: Edmond Wiggins RCS
[2022-06-02 06:02] LABS: Platelet Count 179 K/mm3 (150-450); RET-HE 33.9 pg (30-35); Reticulocyte Count 7.92 % (0.5-1.5)
[2022-06-02] MEDS: 0.9% Normal Saline 1,000 ML 100 ML IV (06:51)
[2022-06-02 07:24] LABS: ALB/GLOB Ratio 0.9 RATIO (0.9-2.4); AST(SGOT) 11 U/L (15-37); Alanine Aminotransfer ALT/SGPT 13 U/L (13-56); Albumin, Serum 2.3 g/dL (3.2-5.0); Alkaline Phosphatase 106 U/L (45-117); Anion Gap 9 (5-15); BUN 21 mg/dL (7-18); BUN/Creat Ratio 24.6 RATIO (10-20); Calcium,Total 7.4 mg/dL (8.5-10.1); Chloride 118 mmol/L (98-107); Creatinine, Serum 0.85 mg/dL (0.55-1.02); EST Glomerular Filtration Rate 68 mL/min (>60); Est Glom Filt Rate - Afr Amer 82 mL/min (>60); Estimated Creatinine Clearance 41.75 ml/min; Ferritin 335 ng/mL (8-252); Globulin 2.5 g/dL (2.2-4.2); Glucose 139 mg/dL (74-106); Iron 41 ug/dL (50-170); Iron Binding Capacity,Total 236 ug/dL (250-450); Potassium 3.8 mmol/L (3.5-5.1); Protein, Total 4.8 g/dL (6.4-8.2); Sodium Level 146 mmol/L (136-145)
--- NOTE | 2022-06-02 08:18 | PCM.RX.CS ---
Consult Pharmacy has been consulted to manage selected antiobiotic: Vancomycin Type of Consult: New start Suspected Infection: Skin/Soft tissue Prior Doses of Antibiotics Received/Current Regimen: Received loading dose of 1750mg iv x on 06.02.22 @0653 Labs: Sodium 146 mmol/L (136-145) H 06/02/22 03:49 Potassium 3.8 mmol/L (3.5-5.1) 06/02/22 03:49 Chloride 118 mmol/L (98-107) H 06/02/22 03:49 Carbon Dioxide 19.0 mmol/L (21.0-32.0) L 06/02/22 03:49 Anion Gap 9 (5-15) 06/02/22 03:49 BUN 21 mg/dL (7-18) H 06/02/22 03:49 Creatinine 0.85 mg/dL (0.55-1.02) 06/02/22 03:49 Est GFR (MDRD) Af Amer 82 mL/min (>60) 06/02/22 03:49 Est GFR (MDRD) Non-Af 68 mL/min (>60) 06/02/22 03:49 BUN/Creatinine Ratio 24.6 RATIO (10-20) H 06/02/22 03:49 Glucose 139 mg/dL (74-106) H 06/02/22 03:49 Weight used for dosin kg Estimated Creatinine Clearance: 49 ml/min Pharmacy Plan for Drug Dosing: Using an adjusted body weight of 59.3kg, CrCl calculated to be ~49 ml/min. Will begin 750mg iv q12h. Trough level ordered for before 4th total dose. Pharmacy Service will continue to monitor and adjust dosing as required. Follow-Up Labs: Trough Vancomycin - 06.03.22 @1830 before 1900 dose
--- NOTE | 2022-06-02 08:33 | PCM.HP.STD ---
HPI - General General Date of Admission: 06/02/22 HPI Narrative EVE MONTOYA, is a 81 F who presents on direct transfer from [place] in [facility] for concerns of a draining midline wound status post laparoscopic converted to open right hemicolectomy with Dr. Teran on 04/29/2022. Patient was also noted to be profoundly anemic with a hemoglobin of 6.1 mg/dL. Given patient's other comorbidities and this latter issue, I requested coordination of care with our hospitalist service. In visiting with Mrs. Montoya, she states that she had done well following her most recent visited in our office on 05/17/2022?apart from some loose stools. (She denied any bloody or dark tarry stools.) She reports that she was then getting up from her chair yesterday when she suddenly felt weak and a gush of fluid from her midline wound. She presented to the outside hospital where she was found to have a mild leukocytosis, the after mentioned anemia, and CT imaging of the abdomen pelvis was performed with finding of a small fluid collection. [facility] Medical History (Updated 06/02/22 @ 16:[address] Gabriel Hernandez MD) Ambulates with cane Anemia Anxiety Arthritis Autoimmune hemolytic anemia Back pain Cancer Cardiology follow-up encounter Carotid artery stenosis Carpal tunnel syndrome Chest pain Colon cancer Coronary artery disease Depression Diabetes Diverticulitis Gastric reflux GERD (gastroesophageal reflux disease) Hemolytic anemia Hiatal hernia High cholesterol High cholesterol History of echocardiogram History of edema History of steroid therapy History of stress test History of stress test HTN (hypertension) Hx of fracture of femur Hx of fracture of wrist Hx of reduction of open fracture Hyperlipidemia Hypertension Hypothyroid Hypothyroidism Iron deficiency anemia due to chronic blood loss Liver lesion Low iron Lung nodule Lung nodules Moderate tricuspid regurgitation Myocardial infarct Non-smoker Osteoarthritis Osteoporosis Other nonspecific abnormal finding of lung field Restless legs Shortness of breath on exertion synthroid induced DM Thrombocytopenia Thyroid disease Walker as ambulation aid Wears glasses Home Medications folic acid 1 mg tablet 1 mg PO DAILY SUPPLEMENT 08/26/16 [History Last Taken 08/26/16] omeprazole 20 mg capsule,delayed release 20 mg PO DAILY GERD 08/26/16 [History Last Taken 08/26/16] trazodone 50 mg tablet 100 mg PO QHS Check with primary doctor 08/26/16 [History Last Taken 08/25/16] cyanocobalamin (vitamin B-12) 1,000 mcg/mL injection solution 1,000 mcg IM QMONTH SUPPLEMENT 01/24/17 [History Last Taken 05/07/22] atorvastatin 40 mg tablet 40 mg PO QHS CHOLESTEROL 04/07/22 [History Last Taken 05/31/22] cholecalciferol (vitamin D3) 50 mcg (2,000 unit) capsule 50 mcg PO DAILY SUPPLEMENT 04/07/22 [History Last Taken Unknown] levothyroxine 112 mcg capsule 112 mcg PO DAILY THYROID 04/07/22 [History Last Taken Unknown] melatonin 5 mg capsule 10 mg PO QHS PRN Sleep 04/07/22 [History Last Taken Unknown] metoprolol succinate 50 mg tablet,extended release 24 hr 50 mg PO DAILY BP 04/07/22 [History Last Taken Unknown] multivitamin (Daily Multi-Vitamin tablet) 1 tab PO DAILY SUPPLEMENT 04/07/22 [History Last Taken Unknown] polyethylene glycol 3350 17 gram/dose oral powder (Miralax) 17 g PO DAILY CONSTIPATION 04/07/22 [History Last Taken Unknown] pramipexole 0.125 mg tablet 0.125 mg PO QHS RESTLESS LEGS 04/07/22 [History Last Taken Unknown] buspirone 5 mg tablet 5 mg PO BID ANXIETY 04/23/22 [History Last Taken Unknown] potassium chloride 20 mEq tablet,extended release 20 meq PO DAILY SUPPLEMENT 04/23/22 [History Last Taken Unknown] sertraline 25 mg tablet 25 mg PO DAILY DEPRESSION 04/23/22 [History Last Taken Unknown] acetaminophen 325 mg tablet (Tylenol) 650 mg PO Q4H PRN PRN PAIN 1-10/FEVER #0 tabs 05/06/22 [Rx Last Taken Unknown] Allergy/AdvReac Type Severity Reaction Status Date / Time Sulfa (Sulfonamide Allergy Hives Verified 05/17/22 07:52 Antibiotics) ibuprofen AdvReac IT Verified 05/17/22 07:52 AFFECTS MY KIDNEYS Family History Brother Myocardial infarction Cancer lung Father , 61 yrs Cancer lung Mother , 86 yrs Alzheimer disease Surgical History (Updated 06/02/22 @ 02:34 by Shira Martinez) H/O: hysterectomy History of ankle surgery History of appendectomy History of carpal tunnel release History of cholecystectomy History of coronary artery bypass graft History of laparoscopic cholecystectomy History of repair of hiatal hernia Hx of CABG S/P hysterectomy Status post colectomy Social History household members: none Smoking Status: Never smoker alcohol intake: never substance use type: does not use ROS Constitutional Constitutional: Reports weakness; Denies anorexia or fever(s) Gastrointestinal Gastrointestinal: Reports diarrhea; Denies abdominal pain Vital Signs Vital Signs Vital Signs: 06/02/22 02:44 06/02/22 03:00 06/02/22 02:45 Temperature 98.1 F 98.1 F Temperature Source Oral Oral Pulse Rate 62 62 Respiratory Rate 16 16 Respiratory Effort Normal Non-Labored Respiratory Depth Normal Respiratory Pattern Normal Blood Pressure 99/38 L 99/38 L Blood Pressure Mean 58 58 Blood Pressure Source Monitor Blood Pressure Position Semi-Fowlers Blood Pressure Location Left Arm Pulse Ox 100 100 Oxygen Delivery Method Room Air Room Air Room Air Weight Weight: 161 lb 3.2 oz Body Mass Index (BMI) 29.5 Physical Exam Narrative No acute distress, cooperative, pale complexion Const no apparent distress General Appearance: cooperative Resp normal respiratory effort GI GI Narrative: Protuberant abdomen, but overall well-healing midline laparotomy incision with a pinpoint sinus tract at the superiormost aspect draining straw-colored serous fluid. There is no surrounding erythema. On expressing additional fluid, there is a blood-tinged ti color, but no melani purulence. There is no foul odor. Results Lab / Micro Data Result Diagrams: 06/02/22 03:32 06/02/22 03:49 Labs: Laboratory Results - last 24 hr 06/02/22 03:32: WBC 11.6 H, RBC 2.00 L, Hgb 6.4 L, Hct 21.8 L, MCV 109.0 H, MCH 32.0, MCHC 29.4 L, RDW Std Deviation 67.0 H, RDW Coeff of Isis 18.0 H, Plt Count 172, MPV 9.1, Immature Gran % (Auto) 0.700, Neut % (Auto) 90.9 H, Lymph % (Auto) 4.4 L, [place] % (Auto) 3.5, Eos % (Auto) 0.3, Baso % (Auto) 0.2, Absolute Neuts (auto) 10.5 H, Absolute Lymphs (auto) 0.51 L, Nucleated RBC % 0, Differential Comment SCANNED, Hypochromasia 1+, Anisocytosis 1+, Microcytosis RARE, Macrocytosis 1+ 06/02/22 03:32: Sodium 145, Potassium 3.8, Chloride 116 H, Carbon Dioxide 23.0, Anion Gap 6, BUN 22 H, Creatinine 0.75, Estim Creat Clear Calc 35.49, Est GFR (MDRD) Af Amer 96, Est GFR (MDRD) Non-Af 79, BUN/Creatinine Ratio 29.4 H, Glucose 135 H, Calcium 7.4 L, Total Bilirubin 1.20 H, AST 13 L, ALT 16, Alkaline Phosphatase 111, Total Protein 4.7 L, Albumin 2.1 L, Globulin 2.6, Albumin/Globulin Ratio 0.8 L 06/02/22 03:32: Blood Type O NEGATIVE, Antibody Screen NEGATIVE 06/02/22 03:32: Crossmatch See Detail 06/02/22 03:49: Sodium 146 H, Potassium 3.8, Chloride 118 H, Carbon Dioxide 19.0 L, Anion Gap 9, BUN 21 H, Creatinine 0.85, Estim Creat Clear Calc 41.75, Est GFR (MDRD) Af Amer 82, Est GFR (MDRD) Non-Af 68, BUN/Creatinine Ratio 24.6 H, Glucose 139 H, Calcium 7.4 L, Iron 41 L, TIBC 236 L, Ferritin 335 H, Total Bilirubin 1.20 H, AST 11 L, ALT 13, Alkaline Phosphatase 106, Total Protein 4.8 L, Albumin 2.3 L, Globulin 2.5, Albumin/Globulin Ratio 0.9, Folate 31.40 06/02/22 03:49: WBC Cancelled, Corrected WBC Cancelled, RBC Cancelled, Hgb Cancelled, Hct Cancelled, MCV Cancelled, MCH Cancelled, MCHC Cancelled, RDW Std Deviation Cancelled, RDW Coeff of Isis Cancelled, Plt Count Cancelled, MPV Cancelled, Immature Gran % (Auto) Cancelled, Neut % (Auto) Cancelled, Lymph % (Auto) Cancelled, [place] % (Auto) Cancelled, Eos % (Auto) Cancelled, Baso % (Auto) Cancelled, Absolute Neuts (auto) Cancelled, Absolute Lymphs (auto) Cancelled, Total Counted Cancelled, Neutrophils % (Manual) Cancelled, Band Neutrophils % Cancelled, Lymphocytes % (Manual) Cancelled, Monocytes % (Manual) Cancelled, Eosinophils % (Manual) Cancelled, Basophils % (Manual) Cancelled, Metamyelocytes % Cancelled, Myelocytes % Cancelled, Promyelocytes % Cancelled, Blast Cells % Cancelled, Plasma Cell % (Manual) Cancelled, Other Cells % Cancelled, Nucleated RBC % Cancelled, Nucleated RBCs/100 WBC Cancelled, Differential Comment Cancelled, Diff Path Review Cancelled, Hypersegmented Neuts Cancelled, Atypical Lymphocytes Cancelled, Reactive Lymphocytes Cancelled, Smudge Cells Cancelled, Toxic Granulation Cancelled, Toxic Vacuolation Cancelled, Dohle Bodies Cancelled, Adry Rods Cancelled, Platelet Estimate Cancelled, Plt Morphology Comment Cancelled, RBC Morphology Cancelled, Polychromasia Cancelled, Hypochromasia Cancelled, Poikilocytosis Cancelled, Basophilic Stippling Cancelled, Anisocytosis Cancelled, Microcytosis Cancelled, Macrocytosis Cancelled, Spherocytes Cancelled, Sickle Cells Cancelled, Target Cells Cancelled, Tear Drop Cells Cancelled, Ovalocytes Cancelled, Stomatocytes Cancelled, [place] Bodies Cancelled, [place] Cells Cancelled, Bite Cells Cancelled, Crenated Cell Cancelled, Acanthocytes (Spur) Cancelled, Rouleaux Cancelled, Schistocytes Cancelled 06/02/22 03:49: Retic Count 7.92 H, Immature Retic Fraction 38.20 H, Retic Hgb Equivalent 33.9 Assessment & Plan Assessment/Plan (1) Postoperative external wound disruption: PLAN: This is an 81-year-old female who is greater than 1 month status post lap to open right hemicolectomy for colon cancer. She presents with a draining midline laparotomy wound. Based on outside ER presentation, is initially suspicious for developing colocutaneous fistula versus postoperative abscess. On exam, however, patient does not have purulent drainage from her wound, but fluid that is consistent with a draining postoperative seroma. Still empiric antibiotics were applied and cultures were obtained. Gram stain shows just a few GPC's at this point and some white cells. In review of the CT imaging from the outside hospital I do not identify a subfascial fluid collection, but a less than 2 cm area of simple (nonloculated) fluid just above the fascia. Given this impression, I chose to wick the wound with quarter inch iodoform gauze and change the dressing as it becomes saturated. We will continue to follow-up wound culture and maintain antibiotics, but I hope to discontinue antibiotics if they prove to be unnecessary and simply continue wound care. (2) Acute on chronic anemia: PLAN: Patient is found to be anemic with iron deficiency. Given history of prior transfusions, she has developed antibodies that make finding a match for blood exceptionally difficult. We will still plan to transfuse 2 units once blood is able to arrive, but for the interim hospitalist services recommended initiating iron infusion. (3) Colon cancer: PLAN: Patient's status post right hemicolectomy with removal of a hepatic flexure adenocarcinoma. 17 out of 17 lymph nodes negative for a stage of T3 N0 MX. Patient has yet to meet with oncology. She states that she is awaiting communication from their office. We will seek to ensure the are aware of a pending consult prior to patient's hospital discharge. Charges/Coding Visit Charges Inpatient E&M: 24854 Init Hosp L2
[2022-06-02 08:39] LABS: Vitamin B12 819 pg/mL (211-911)
--- NOTE | 2022-06-02 10:21 | CASEMGMT ---
Addendum entered by Wellington Hernandes 06/02/22 13:09: [facility] notified pt is active w/[facility]. Pt states she would like to resume w/them once she returns home and declines wanting list of other HHC options. Call placed to Zoniaita @ [facility] in [place]. Pt is active w/them for SN, PT, and OT. [facility] order placed. Referral for [facility] sent to [facility] via [facility]. Original Note: [facility] readmission note: Prior admission: Admitted 04/29/22 from home w/dx of ERAS and lap rt bj-colectomy. Pt discharged to [facility] 05/06/22. Pt's dtr, Saray, is HCPOA. Current admission: Admitted 06/02/22 w/wound dehiscence, concern for wound infection, and post-op anemia. Pt was direct admit from [facility]. [facility] to room. Introduced self and role. Pt states she was @ [facility] until a few days ago and then discharged to an assisted living facility in [place] called [facility], stating she does not remember the name. She wishes to return to the assisted living facility @ discharge. Aminata MOTA, made aware. Sara RODRÍGUEZ RN, CM
[2022-06-02] MEDS: Sertraline 50 MG Tablet 25 MG PO (10:36)
[2022-06-02] MEDS: busPIRone 5 MG Tablet PO ×2 (10:36→22:22)
--- NOTE | 2022-06-02 10:51 | CASEMGMT ---
Addendum entered by Aminata Moreno 06/02/22 12:55: Received pc from Jeanette at [facility]. Jeanette informed that pt able to be accepted back as long as pt is ambulatory. Jeanette informed pt has [facility] once a week but feels it would be beneficial if pt had more. Jeanette also informed pt gets SOB often. SVETLANA updated [facility]. Original Note: social Work SW called [employer] to inquire about which AL facility pt was placed in. SW was told [facility]. SW called [facility] to confirm pt able to return upon discharge. SW was told yes that pt can return. Professor Of Spanish at [facility] took SW number and informed SW that if this decision changes someone in admissions would call back. this SW inquired about the facility needing clinical updates and a fax number that they can be sent to. SW was told I don't know the fax number here and I really don't think we need any updates. PLAN: Return to [facility] ([facility]) Aminata Moreno, ASHLEY
--- NOTE | 2022-06-02 15:00 | CHAPLAIN ---
Type of Pastoral Visit _x__ Initial Visit ___ Follow-up Visit ___ On-call Visit ___ General Patient Visit ___ Spiritual Assessment ___ Family Conference ___ Bereavement ___ Rapid Response ___ Code Blue ___ Other (describe below) Pastoral Care Referral From _x__ Patient ___ Family ___ Nurse ___ Physician ___ Test Desk Trouble Locator ___ Speeder Hand ___ Other (describe below) Sacrament/Intervention _x__ Active listening ___ Anointing ___ Denominational ___ Bereavement ___ Communion ___ Melly exploration ___ ___ Life review _x__ Prayer ___ Reconciliation ___ Sacrament of Sick _x__ Supportive presence ___ Wedding ___ Other (describe below) Pastoral Comments patient describes her need, declares that she is managing well, and that a prayer would be helpful and appreciated
[2022-06-02] MEDS: 0.9% Normal Saline 1,000 ML 25 ML IV (17:33)
[2022-06-02] MEDS: traZODone 50 MG Tablet 100 MG PO (22:22)
[2022-06-02] MEDS: Atorvastatin Calcium 40 MG Tablet PO (22:23)
[2022-06-02] MEDS: Pramipexole Di-HCl 0.125 MG Tablet PO (22:23)
[2022-06-02] MEDS: Acetaminophen 325 MG Tablet 650 MG PO (22:39)
[2022-06-03] VITALS (16 sets, daily range): BP systolic 107–150; BP diastolic 39–73; PULSE 57–72; RESP 16–20; TEMP 36.4–36.9; O2SAT 97–100
[2022-06-03] MEDS: Acetaminophen 325 MG Tablet 650 MG PO ×2 (05:10→11:41)
[2022-06-03] MEDS: Levothyroxine 112 MCG Tablet PO (05:10)
[2022-06-03 06:17] LABS: Absolute Lymphocyte Count 0.68 X10^3/uL (0.83-4.51); Absolute Neutrophil Count 8.5 X10^3/uL (2.0-7.7); Basophil# 0.04 X10^3/uL; Basophil% 0.4 % (0-1); Eosinophil# 0.07 X10^3/uL; Eosinophils% 0.7 % (0-5); Hematocrit 22.3 % (37-47); Hemoglobin 6.4 g/dL (12.0-15.0); Lymphocyte # 0.68 X10^3/ul (0.83-4.51); Lymphocyte % 6.8 % (19-41); Mean Corp Hgb Conc 28.7 g/dL (32-36); Mean Corpuscular Hgb 32.7 pg (27.0-32.0); Mean Corpuscular Volume 113.8 fL (81-99); Mean Platelet Vol. 9.2 fl (6.2-12.0); Monocyte# 0.48 X10^3/uL; Monocyte% 4.8 % (0-10); NRBC Flagged by Analyzer 0.3 % (0-5); Neutrophil # 8.54 X10^3/uL (2.7-7.7); Neutrophil % 85.9 % (47-70); POSITIVE MORPHOLOGY YES; Platelet Count 179 K/mm3 (150-450); RBC Distribution Width CV 19.1 % (11.6-14.6); RBC Distribution Width SD 76.8 fl (35.1-43.9); Red Blood Count 1.96 M/mm3 (4.2-5.4)
[2022-06-03 06:24] LABS: Differential Indicated SCAN CRITERIA MET
[2022-06-03 07:05] LABS: Differential Comment SCANNED; Hypochromasia 2+
[2022-06-03 07:06] LABS: Anisocytosis 1+; Macrocytosis 1+; Microcytosis RARE; Polychromasia RARE
[2022-06-03] MEDS: Folic Acid 1 MG Tablet PO (09:38)
[2022-06-03] MEDS: busPIRone 5 MG Tablet PO ×2 (09:39→22:22)
[2022-06-03] MEDS: Sertraline 50 MG Tablet 25 MG PO (09:39)
--- NOTE | 2022-06-03 10:33 | PCM.PN.SRG ---
Subjective Subjective Patient evaluated resting comfortably in bed. She denies any pain or discomfort in her abdomen. She denies any fever. Her Hgb is stable at 6.4. She is to receive blood which [place] coming [place] state. Objective Data Objective Data Vital Signs: Vital Signs Temp Pulse Resp BP Pulse Ox O2 Del Method 97.6 F L 62 16 107/42 L 98 Room Air 06/03/22 08:20 06/03/22 08:20 06/03/22 08:20 06/03/22 08:20 06/03/22 08:58 06/03/22 09:02 Oxygen Delivery Method Room Air Weight: 161 lb 3.2 oz Body Mass Index (BMI) 29.5 Intake & Output: Intake and Output for Last 24 Hours 06/01/22 06/02/22 06/03/22 23:59 23:59 23:59 Intake Total 2950.50 / 2950.50 675 / 675 Output Total 200 / 200 200 / 200 Balance 2750.50 / 2750.50 475 / 475 Lab / Micro Data Result Diagrams: 06/03/22 05:40 06/02/22 03:49 Labs: Laboratory Results - last 24 hr 06/02/22 03:32: Crossmatch See Detail 06/03/22 05:40: WBC 10.0, RBC 1.96 L, Hgb 6.4 L, Hct 22.3 L, MCV 113.8 H, MCH 32.7 H, MCHC 28.7 L, RDW Std Deviation 76.8 H, RDW Coeff of Isis 19.1 H, Plt Count 179, MPV 9.2, Immature Gran % (Auto) 1.400 H, Neut % (Auto) 85.9 H, Lymph % (Auto) 6.8 L, [place] % (Auto) 4.8, Eos % (Auto) 0.7, Baso % (Auto) 0.4, Absolute Neuts (auto) 8.5 H, Absolute Lymphs (auto) 0.68 L, Nucleated RBC % 0.3, Differential Comment SCANNED, Polychromasia RARE, Hypochromasia 2+, Anisocytosis 1+, Microcytosis RARE, Macrocytosis 1+ Micro: Microbiology 06/02/22 06:00 Incision/Surgical Site Gram Stain - Final Radiography Diagnostic Testing: Radiology Impression Echocardiogram 06/02/22 05:25 Interpretation Summary The study was technically difficult. Contrast injection was performed. Based upon the 2D echocardiographic and contrast enhanced images obtained there appears to be grossly normal left ventricular size, wall motion, and systolic function. The estimated ejection fraction is 65 %. Moderate concentric left ventricular hypertrophy. D shaped septum in systole and diastole. Moderately dilated right ventricle. Mild global right ventricular systolic dysfunction. The left atrium is mildly enlarged. The right atrium is moderately enlarged. There is mild mitral annular calcification. Extension of the mitral annular calcification onto the base of the posterior mitral valve leaflet. Moderate (2+) mitral valve insufficiency. Moderately severe (3+) eccentric tricuspid valve insufficiency. Moderate focal aortic valve calcification. Trivial pulmonic valve insufficiency. Echolucency compatible with a pleural effusion. Right ventricular systolic pressure estimated to be 53 mmHg compatible with pulmonary hypertension. Stage 3 diastolic dysfunction. Ordering Physician: Emily Jewell Performed By: Edmond Wiggins RCS Physical Exam Const alert, oriented x3 and no apparent distress GI GI Narrative: Abdomen- soft, nontender. Superior aspect of the incision with 1 cm diameter opening. Packing was pulled with serous blood fluid noted. Wound tunnels straight down approximately 1.7 cm. No erythema or infection noted. Open wound was repacked with iodoform packing, dry gauzed placed over top and ABD pad placed. Assessment & Plan Assessment/Plan (1) Postoperative external wound disruption: PLAN: Continue packing daily during rounds Change gauze and ABD dressing twice daily so drainage is not sitting on top of the wound Next change, you may switch to 2 dry gauze dressings since little drainage is noted Continue antibiotics until cultures have returned Cultures are still pending. If no growth then will stop antibiotic Patient has an oncology appointment with JESSENIA Samayoa on 06/07 at 3:30pm Charges/Coding Visit Charges Inpatient E&M: 44331 Subs Hosp L1
[2022-06-03 13:06] LABS: Bilirubin, Direct 0.38 mg/dL (0.00-0.30); LDH 236 U/L (84-246)
--- NOTE | 2022-06-03 14:06 | CASEMGMT ---
Social work Clinical updates faxed to [facility]. SW requested notes be reviewed and facility determine if they can accept pt back. ASHLEY Gonzales
[2022-06-03] MEDS: Menthol/Lanolin/Calamine/Znox 113 GM Tube 1 APPLIC TOPICAL ×2 (14:37→22:22)
[2022-06-03] MEDS: predniSONE 20 MG Tablet 80 MG PO (14:39)
[2022-06-03 15:31] LABS: Mucous, Urine 0 SEEN /hpf (<or=2+); Red Blood Cells-Urine 0 SEEN /hpf (0-5); Squamous Epithelial Cells - UA 0 SEEN /hpf (5-10); White Blood Cells 0 SEEN /hpf (0-5)
[2022-06-03 15:34] LABS: Color, Urine Yellow (Yellow); Glucose, Dipstick Normal (Normal); Ketone-Dipstick Negative (Negative); Leukocyte Esterase-Dipstick 25 /ul (Negative); Nitrite-Dipstick Negative (Negative); Occult Blood-Urine Negative /ul (Negative); Protein-Dipstick 30 mg/dl (Negative); Urine Bilirubin Dipstick Negative (Negative); Urine Clarity Clear (Clear); Urine Urobilinogen Normal (Normal)
[2022-06-03 15:41] LABS: Bacteria RARE /hpf (None Seen)
[2022-06-03 16:07] LABS: Hematocrit 25.3 % (37-47); Hemoglobin 7.3 g/dL (12.0-15.0)
[2022-06-03 17:31] LABS: Bedside Glucose 140 mg/dL (74-106)
[2022-06-03 18:53] LABS: Vancomycin, Trough Level 23.1 ug/mL (5.0-15.0)
--- NOTE | 2022-06-03 19:01 | NURSING ---
Call from pharmacy stating pt vanc trough was high and we needed to stop the infusion. IV was stopped and she will put it in as a d/c order.
--- NOTE | 2022-06-03 19:03 | PCM.RX.CS ---
Consult Pharmacy has been consulted to manage selected antiobiotic: Vancomycin Type of Consult: Follow-up Labs: Sodium 146 mmol/L (136-145) H 06/02/22 03:49 Potassium 3.8 mmol/L (3.5-5.1) 06/02/22 03:49 Chloride 118 mmol/L (98-107) H 06/02/22 03:49 Carbon Dioxide 19.0 mmol/L (21.0-32.0) L 06/02/22 03:49 Anion Gap 9 (5-15) 06/02/22 03:49 BUN 21 mg/dL (7-18) H 06/02/22 03:49 Creatinine 0.85 mg/dL (0.55-1.02) 06/02/22 03:49 Est GFR (MDRD) Af Amer 82 mL/min (>60) 06/02/22 03:49 Est GFR (MDRD) Non-Af 68 mL/min (>60) 06/02/22 03:49 BUN/Creatinine Ratio 24.6 RATIO (10-20) H 06/02/22 03:49 Glucose 139 mg/dL (74-106) H 06/02/22 03:49 Vancomycin Trough 23.1 ug/mL (5.0-15.0) H 06/03/22 18:25 Microbiology: Microbiology 06/02/22 06:00 Incision/Surgical Site Gram Stain - Final 06/02/22 06:00 Incision/Surgical Site Wound Culture - Preliminary Gram positive shelby Goal Trough: 15-20 mcg/mL Pharmacy Plan for Drug Dosing: VANCOMYCIN LEVEL RECEIVED Current Vancomycin Dose: 750MG IV Q12HR Number of Doses Received: 4 ( 3 prior to trough draw) Vancomycin Level: 23.1 Hours Since Last Dose: 11.5hrs Renal Function: 0.85 Renal Function Trend: stable Lab/Micro: surgical Cx growing G(+) shelby Vancomycin Plan/Comments: Patient had a trough drawn which resulted in a value of 23.1 (goal 15-20). Contacted nursing and instructed them to discontinue current vancomycin infusion. Dose was hanging ~30min so the patient got approximately 50% of the 1900 scheduled dose. Will hold subsequent doses of vancomycin and resume dosing once trough falls below 20. Will draw a random level in 24hrs to assess. Pending Level: *RANDOM* 06/04/22 @1800 Pharmacy Service will continue to monitor and adjust dosing as required.
[2022-06-03] MEDS: 0.9% Saline Lock 10 ML Syringe IV (22:22)
[2022-06-03] MEDS: traZODone 50 MG Tablet 100 MG PO (22:22)
[2022-06-03] MEDS: Atorvastatin Calcium 40 MG Tablet PO (22:22)
[2022-06-03] MEDS: Pramipexole Di-HCl 0.125 MG Tablet PO (22:22)
[2022-06-03] MEDS: Insulin Lispro 100 UNIT/ML INSULN.PEN SC (22:23)
[2022-06-03 22:35] LABS: Bedside Glucose 157 mg/dL (74-106)
[2022-06-04] VITALS (16 sets, daily range): BP systolic 103–136; BP diastolic 37–50; PULSE 57–69; RESP 16–20; TEMP 36.6–37.1; O2SAT 97–100
[2022-06-04] MEDS: Metoprolol Tartrate 5 MG/5 ML Vial IV ×2 (00:25→05:16)
[2022-06-04] MEDS: 0.9% Saline Lock 10 ML Syringe IV ×4 (00:26→22:08)
[2022-06-04] MEDS: Acetaminophen 325 MG Tablet 650 MG PO ×2 (00:26→20:41)
[2022-06-04] MEDS: Menthol/Lanolin/Calamine/Znox 113 GM Tube 1 APPLIC TOPICAL ×3 (05:12→22:08)
[2022-06-04] MEDS: Levothyroxine 112 MCG Tablet PO (05:12)
[2022-06-04] MEDS: Insulin Lispro 100 UNIT/ML INSULN.PEN SC ×4 (05:35→22:12)
[2022-06-04 05:55] LABS: Bedside Glucose 155 mg/dL (74-106)
[2022-06-04 08:09] LABS: Hematocrit 24.6 % (37-47); Hemoglobin 7.2 g/dL (12.0-15.0)
[2022-06-04] MEDS: Insulin Glargine-YFGN 100 UNIT/ML Pen 10 UNIT SC (09:00)
[2022-06-04] MEDS: Folic Acid 1 MG Tablet PO (09:00)
[2022-06-04] MEDS: predniSONE 20 MG Tablet 80 MG PO (09:00)
[2022-06-04] MEDS: Sertraline 50 MG Tablet 25 MG PO (09:33)
[2022-06-04] MEDS: busPIRone 5 MG Tablet PO ×2 (09:33→22:13)
--- NOTE | 2022-06-04 09:42 | PN.SURG_ITS ---
Subjective Subjective Patient was seen and examined during AM rounds. She was transfused approximately 70% of 1 unit according to nursing before she had infiltration of the midline to the right upper extremity. The remainder of the unit was transferred via peripheral IV the patient's left upper extremity. Patient states that her energy level is somewhat improved. She reports a loose bowel movement yesterday afternoon that was yellow in color. Denies any significant abdominal pain. Objective Data Objective Data Vital Signs: Vital Signs Temp Pulse Resp BP Pulse Ox O2 Del Method 98.5 F 65 18 136/50 H 97 Room Air 06/04/22 02:00 06/04/22 05:16 06/04/22 02:00 06/04/22 05:01 06/04/22 02:00 06/04/22 02:00 Oxygen Delivery Method Room Air Weight: 161 lb 3.2 oz Body Mass Index (BMI) 29.5 Intake & Output: Intake and Output for Last 24 Hours 06/02/22 06/03/22 06/04/22 23:59 23:59 23:59 Intake Total 2950.50 / 2950.50 2023.34 / 2273.34 825 / 825 Output Total 200 / 200 350 / 350 Balance 2750.50 / 2750.50 1673.34 / 1923.34 825 / 825 Lab / Micro Data Result Diagrams: 06/04/22 07:45 06/02/22 03:49 Labs: Laboratory Results - last 24 hr 06/02/22 03:32: Crossmatch See Detail 06/02/22 03:32: Crossmatch See Detail 06/03/22 05:40: TSH 12.80 H 06/03/22 05:40: Direct Bilirubin 0.38 H, Lactate Dehydrogenase 236 06/03/22 15:05: Urine Color Yellow, Urine Clarity Clear, Urine pH 5.0, Ur Specific Stephan 1.010, Urine Protein 30 H, Urine Glucose (UA) Normal, Urine Ketones Negative, Urine Occult Blood Negative, Urine Nitrite Negative, Urine Bilirubin Negative, Urine Urobilinogen Normal, Ur Leukocyte Esterase 25 H, Urine RBC 0 SEEN, Urine WBC 0 SEEN, Ur Squamous Epith Cells 0 SEEN, Urine Bacteria RARE, Urine Mucus 0 SEEN 06/03/22 15:55: Hgb 7.3 L, Hct 25.3 L 06/03/22 16:45: POC Glucose 140 H 06/03/22 18:25: Vancomycin Trough 23.1 H 06/03/22 22:03: POC Glucose 157 H 06/04/22 05:34: POC Glucose 155 H 06/04/22 07:45: Hgb 7.2 L, Hct 24.6 L Micro: Microbiology 06/02/22 06:34 Blood Culture (Wb) - Anticubital Left Blood Culture - Preliminary No growth in 48 hours. 06/02/22 06:19 Blood Culture (Wb) - Anticubital Left Blood Culture - Preliminary No growth in 48 hours. 06/02/22 06:00 Incision/Surgical Site Gram Stain - Final 06/02/22 06:00 Incision/Surgical Site Wound Culture - Preliminary Gram positive shelby Physical Exam Const oriented x3 and no apparent distress Constitutional Narrative: Mild pallor persists Resp normal respiratory effort GI GI Narrative: No abdominal distention, wound appears stable with mild serous output (decreased in volume). Patient's abdomen is soft and nontender to palpation x4 quadrants. Assessment & Plan Assessment/Plan (1) Postoperative external wound disruption: PLAN: Wound appears stable without a frankly infected appearance. Thus far Gram stain shows 1+ GPC's which could be a skin contaminant. We will continue to follow for finalized culture results. Continue packing daily during rounds Change gauze and ABD dressing twice daily so drainage is not sitting on top of the wound Continue antibiotics until cultures have returned Cultures are still pending. If no growth then will stop antibiotic Patient has an oncology appointment with [facility] on 06/07 at 3:30pm (2) Acute on chronic anemia: PLAN: Patient's hemoglobin has trended 6.4 to 7.3 to 7.2 after 3 units of PRBCs. Patient is having bowel movements, but denies noting any dark stools. Further, nursing reporting only brown bowel movements. Fecal occult blood testing has been ordered but not obtained. According to hospitalist service and interp retation of laboratories patient's elevated direct bili is concerning for hemolysis, but LDH is unexpectedly within normal range. We will continue to monitor and plan for transfusion of fourth unit. If patient's fecal occult blood testing ordered return positive or haptoglobin return low would plan for bowel prep and upper and lower endoscopy to look for occult GI source. Charges/Coding Visit Charges Inpatient E&M: 82458 Subs Hosp L2
--- NOTE | 2022-06-04 10:00 | PCM.PN.HOSP ---
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) Hypothyroidism, unspecified (06/02/22) Disruption of external operation (surgical) wound, not elsewhere classified, initial encounter (06/02/22) Subjective Subjective No issues overnight, hemoglobin came up to 7.3 yesterday repeat is 7.2 would recommend transfusing the fourth unit of blood we have on hold Objective Data Objective Data Vital Signs: Vital Signs Temp Pulse Resp BP Pulse Ox O2 Del Method 98.5 F 65 18 136/50 H 97 Room Air 06/04/22 02:00 06/04/22 05:16 06/04/22 02:00 06/04/22 05:01 06/04/22 02:00 06/04/22 02:00 Oxygen Delivery Method Room Air Weight: 161 lb 3.2 oz Body Mass Index (BMI) 29.5 Intake & Output: Intake and Output for Last 24 Hours 06/03/22 06/04/22 06/05/22 03:59 03:59 03:59 Intake Total 3200.50 / 3200.50 2473.34 / 2473.34 125 / 125 Output Total 400 / 400 150 / 150 Balance 2800.50 / 2800.50 2323.34 / 2323.34 125 / 125 Lab / Micro Data Result Diagrams: 06/04/22 07:45 06/02/22 03:49 Labs: Laboratory Results - last 24 hr 06/02/22 03:32: Crossmatch See Detail 06/02/22 03:32: Crossmatch See Detail 06/03/22 05:40: TSH 12.80 H 06/03/22 05:40: Direct Bilirubin 0.38 H, Lactate Dehydrogenase 236 06/03/22 15:05: Urine Color Yellow, Urine Clarity Clear, Urine pH 5.0, Ur Specific Weatherford 1.010, Urine Protein 30 H, Urine Glucose (UA) Normal, Urine Ketones Negative, Urine Occult Blood Negative, Urine Nitrite Negative, Urine Bilirubin Negative, Urine Urobilinogen Normal, Ur Leukocyte Esterase 25 H, Urine RBC 0 SEEN, Urine WBC 0 SEEN, Ur Squamous Epith Cells 0 SEEN, Urine Bacteria RARE, Urine Mucus 0 SEEN 06/03/22 15:55: Hgb 7.3 L, Hct 25.3 L 06/03/22 16:45: POC Glucose 140 H 06/03/22 18:25: Vancomycin Trough 23.1 H 06/03/22 22:03: POC Glucose 157 H 06/04/22 05:34: POC Glucose 155 H 06/04/22 07:45: Hgb 7.2 L, Hct 24.6 L Micro: Microbiology 06/02/22 06:34 Blood Culture (Wb) - Anticubital Left Blood Culture - Preliminary No growth in 48 hours. 06/02/22 06:19 Blood Culture (Wb) - Anticubital Left Blood Culture - Preliminary No growth in 48 hours. 06/02/22 06:00 Incision/Surgical Site Gram Stain - Final 06/02/22 06:00 Incision/Surgical Site Wound Culture - Preliminary Gram positive shelby Physical Exam Narrative General: Alert, Oriented x3, Cooperative, No apparent distress, fatigued HEENT: Atraumatic, PERRLA, EOMI, Normocephalic, pale Oral: Moist Mucosa Neck: Supple, No JVD Lungs: Diminished, Normal air movement, No rhonchi, No wheeze, No rales Cardiovascular: Regular rate, Regular Rhythm, Normal S1, Normal S2, No murmurs Abdomen: Soft, Non Tender, Non-Distended, No Hepato-splenomegaly Extremities: No edema, Capillary Refill Less than 3 Seconds Skin: No rashes, No breakdown Musculoskeletal: No Tenderness to Palpation of Joints or Extremities Neurological: Cranial nerves II-XII grossly intact, Motor Exam 5/5 strength throughout, Sensory exam intact to light touch and pain Psych/Mental Status: Flat affect, Appropriate Assessment & Plan Assessment/Plan (1) Postoperative external wound disruption: (2) Acute on chronic anemia: PLAN: Plan 1. Concern for postoperative wound infection/anemia possibly blood loss versus hemolytic ?Possible wound infection surgery primary continue with Vanco and Zosyn ? Direct bilirubin is elevated however LDH is normal awaiting haptoglobin in the meantime we will place her on 80 mg of p.o. prednisone every day and will monitor her blood sugars ? UA does not show any blood, stool occult is pending ?She has received 3 units of blood in transfusion without a significant response 2. Chronic diastolic CHF/HTN/HLD ? Echo with an EF of 65% and stage III diastolic dysfunction she does have moderate pulmonary hypertension ? We will start her on p.o. Lasix ?We will resume her home blood pressure medications ? Continue with Lipitor 3. 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 She will need to follow-up with oncology once discharged 4. GERD ? Stable ? Continue with PPI 5. Hypothyroidism ? Stable ? Continue with Synthroid DVT: SCDs Charges/Coding Visit Charges Inpatient E&M: 41229 Subs Hosp L2
--- NOTE | 2022-06-04 10:41 | CASEMGMT ---
Social Work SVETLANA spoke with therapy and pt is improved with ambulation this morning. Phone call to Jeanette at [facility] and verbal update given. Jeanette confirms pt can return when pt is medically ready and asks that [facility] continues and nursing visits are increased. RNCM updated. SVETLANA met with pt and discussed return to [facility] and pt states she feels stronger and plans to return to [facility] at discharge. With pt permission, phone call to pt chaim Zelaya and she is also agreeable to return to [facility] and plans to transport. Plan: [facility], when medically ready ASHLEY Gonzales
--- NOTE | 2022-06-04 10:48 | CASEMGMT ---
Per SVETLANA [facility] is asking for pt have more frequent nurse visits. Call placed to [facility] and spoke w/Sharmila and she was made aware of this request. She states she will put this request in, but she is not sure if [facility] will approve more visits. She states [facility] typically only approves for 20 visits total b/w all services. Sharmila was also made aware anticipate pt will be ready for discharge over the weekend. Green sheet on chart w/instructions for HHC notification and to fax d/c instructions @ d/c. Sara ELLIOTTN RN CM
[2022-06-04] MEDS: 0.9% Normal Saline 1,000 ML 25 ML IV (11:24)
[2022-06-04] MEDS: Furosemide 20 MG Tablet PO (11:24)
[2022-06-04 12:00] LABS: Bedside Glucose 192 mg/dL (74-106)
[2022-06-04 17:21] LABS: Haptoglobin 177 mg/dL (42-346)
[2022-06-04 17:25] LABS: Bedside Glucose 248 mg/dL (74-106)
[2022-06-04 19:00] LABS: Vancomycin, Random Level 17.6 ug/mL (0.0-15.0)
--- NOTE | 2022-06-04 20:37 | PCM.RX.CS ---
Consult Pharmacy has been consulted to manage selected antiobiotic: Vancomycin Type of Consult: Follow-up Suspected Infection: Other Labs: Sodium 146 mmol/L (136-145) H 06/02/22 03:49 Potassium 3.8 mmol/L (3.5-5.1) 06/02/22 03:49 Chloride 118 mmol/L (98-107) H 06/02/22 03:49 Carbon Dioxide 19.0 mmol/L (21.0-32.0) L 06/02/22 03:49 Anion Gap 9 (5-15) 06/02/22 03:49 BUN 21 mg/dL (7-18) H 06/02/22 03:49 Creatinine 0.85 mg/dL (0.55-1.02) 06/02/22 03:49 Est GFR (MDRD) Af Amer 82 mL/min (>60) 06/02/22 03:49 Est GFR (MDRD) Non-Af 68 mL/min (>60) 06/02/22 03:49 BUN/Creatinine Ratio 24.6 RATIO (10-20) H 06/02/22 03:49 Glucose 139 mg/dL (74-106) H 06/02/22 03:49 Vancomycin Trough 23.1 ug/mL (5.0-15.0) H 06/03/22 18:25 Random Vancomycin 17.6 ug/mL (0.0-15.0) H 06/04/22 18:15 Microbiology: Microbiology 06/02/22 06:34 Blood Culture (Wb) - Anticubital Left Blood Culture - Preliminary No growth in 48 hours. 06/02/22 06:19 Blood Culture (Wb) - Anticubital Left Blood Culture - Preliminary No growth in 48 hours. 06/02/22 06:00 Incision/Surgical Site Gram Stain - Final 06/02/22 06:00 Incision/Surgical Site Wound Culture - Preliminary Gram positive shelby Goal Trough: 15-20 mcg/mL Pharmacy Plan for Drug Dosing: VANCOMYCIN LEVEL RECEIVED Current Vancomycin Dose: dose currently on hold due to elevated trough Number of Doses Received: Vancomycin Level: 17.6 Hours Since Last Dose: 24 Renal Function: SrCr 0.85 Renal Function Trend: currently stable Lab/Micro: Vancomycin Plan/Comments: recommend restarting Vancomycin at a dose of 1250mg q24h. Trough prior to the 3rd dose (dose calculated using Clinical Pharmacology. Est trough to be 16) Pending Level: 06/06/22 at 2029 Pharmacy Service will continue to monitor and adjust dosing as required. Follow-Up Labs: Trough Vancomycin - 06/06/22 at 2030
[2022-06-04] MEDS: Atorvastatin Calcium 40 MG Tablet PO (22:13)
[2022-06-04] MEDS: traZODone 50 MG Tablet 100 MG PO (22:13)
[2022-06-04] MEDS: Pramipexole Di-HCl 0.125 MG Tablet PO (22:14)
[2022-06-04 22:20] LABS: Bedside Glucose 212 mg/dL (74-106)
[2022-06-05 03:37] VITALS: BP 122/49; PULSE 67; RESP 18; TEMP 36.7; O2SAT 99
[2022-06-05 04:41] LABS: Absolute Lymphocyte Count 0.42 X10^3/uL (0.83-4.51); Absolute Neutrophil Count 9.4 X10^3/uL (2.0-7.7); Basophil# 0.01 X10^3/uL; Basophil% 0.1 % (0-1); Hematocrit 27.3 % (37-47); Hemoglobin 8.3 g/dL (12.0-15.0); Lymphocyte # 0.42 X10^3/ul (0.83-4.51); Mean Corp Hgb Conc 30.4 g/dL (32-36); Mean Corpuscular Hgb 32.5 pg (27.0-32.0); Mean Corpuscular Volume 107.1 fL (81-99); Monocyte# 0.43 X10^3/uL; Monocyte% 4.1 % (0-10); NRBC Flagged by Analyzer 0.2 % (0-5); Neutrophil % 90.5 % (47-70); POSITIVE DIFFERENTIAL YES; POSITIVE MORPHOLOGY YES; Platelet Count 219 K/mm3 (150-450); RBC Distribution Width CV 21.5 % (11.6-14.6); RBC Distribution Width SD 75.7 fl (35.1-43.9); RET-HE 33.8 pg (30-35); Red Blood Count 2.55 M/mm3 (4.2-5.4); Reticulocyte Count 9.77 % (0.5-1.5); White Blood Count 10.4 K/mm3 (4.4-11.0)
[2022-06-05 05:06] LABS: Differential Indicated SCAN CRITERIA MET
[2022-06-05 05:16] LABS: Anion Gap 7 (5-15); BUN 21 mg/dL (7-18); BUN/Creat Ratio 21.8 RATIO (10-20); Chloride 120 mmol/L (98-107); Creatinine, Serum 0.96 mg/dL (0.55-1.02); EST Glomerular Filtration Rate 59 mL/min (>60); Est Glom Filt Rate - Afr Amer 72 mL/min (>60); Estimated Creatinine Clearance 36.97 ml/min; Glucose 147 mg/dL (74-106); Potassium 3.1 mmol/L (3.5-5.1); Sodium Level 147 mmol/L (136-145)
[2022-06-05 05:42] VITALS: PULSE 59
[2022-06-05] MEDS: Acetaminophen 325 MG Tablet 650 MG PO ×2 (06:19→19:01)
[2022-06-05] MEDS: 0.9% Saline Lock 10 ML Syringe IV (06:19)
[2022-06-05] MEDS: Levothyroxine 112 MCG Tablet PO (06:19)
[2022-06-05] MEDS: Menthol/Lanolin/Calamine/Znox 113 GM Tube 1 APPLIC TOPICAL ×3 (06:19→21:35)
[2022-06-05 06:23] LABS: Anisocytosis 1+; Burr Cells RARE; Differential Comment SCANNED; Macrocytosis 1+; Polychromasia RARE
[2022-06-05 07:00] LABS: Bedside Glucose 148 mg/dL (74-106)
--- NOTE | 2022-06-05 07:25 | PN.SURG_ITS ---
Subjective Subjective Having bowel function which she describes as light puentes/yellow in color. Patient denies any tarry or red stools. Patient denies any abdominal pain. Objective Data Objective Data Vital Signs: Vital Signs Temp Pulse Resp BP Pulse Ox O2 Del Method 98.0 F 59 L 18 122/49 H 99 Room Air 06/05/22 03:37 06/05/22 05:42 06/05/22 03:37 06/05/22 03:37 06/05/22 03:37 06/05/22 03:37 Oxygen Delivery Method Room Air Weight: 161 lb 3.2 oz Body Mass Index (BMI) 29.5 Intake & Output: Intake and Output for Last 24 Hours 06/03/22 06/04/22 06/05/22 23:59 23:59 23:59 Intake Total 2023.34 / 2273.34 3626.58 / 3626.58 330.25 / 330.25 Output Total 350 / 350 700 / 700 Balance 1673.34 / 1923.34 2926.58 / 2926.58 330.25 / 330.25 Lab / Micro Data Result Diagrams: 06/05/22 03:30 06/05/22 03:30 Labs: Laboratory Results - last 24 hr 06/02/22 03:32: Crossmatch See Detail 06/02/22 03:49: Haptoglobin 177 06/04/22 07:45: Hgb 7.2 L, Hct 24.6 L 06/04/22 11:28: POC Glucose 192 H 06/04/22 17:02: POC Glucose 248 H 06/04/22 18:15: Random Vancomycin 17.6 H 06/04/22 22:02: POC Glucose 212 H 06/05/22 03:30: WBC 10.4, RBC 2.55 L, Hgb 8.3 L, Hct 27.3 L, MCV 107.1 H D, MCH 32.5 H, MCHC 30.4 L D, RDW Std Deviation 75.7 H, RDW Coeff of Isis 21.5 H, Plt Count 219, MPV 9.0, Immature Gran % (Auto) 1.300 H, Neut % (Auto) 90.5 H, Lymph % (Auto) 4.0 L, Gulf % (Auto) 4.1, Eos % (Auto) 0.0, Baso % (Auto) 0.1, Absolute Neuts (auto) 9.4 H, Absolute Lymphs (auto) 0.42 L, Nucleated RBC % 0.2, Differential Comment SCANNED, Polychromasia RARE, Anisocytosis 1+, Macrocytosis 1+, Amy Cells RARE, Retic Count 9.77 H, Immature Retic Fraction 36.70 H, Retic Hgb Equivalent 33.8 06/05/22 03:30: Sodium 147 H, Potassium 3.1 L, Chloride 120 H, Carbon Dioxide 20.0 L, Anion Gap 7, BUN 21 H, Creatinine 0.96, Estim Creat Clear Calc 36.97, Est GFR (MDRD) Af Amer 72, Est GFR (MDRD) Non-Af 59 L, BUN/Creatinine Ratio 21.8 H, Glucose 147 H, Calcium 7.0 L 06/05/22 06:21: POC Glucose 148 H Micro: Microbiology 06/02/22 06:34 Blood Culture (Wb) - Anticubital Left Blood Culture - Pr eliminary No growth in 48 hours. 06/02/22 06:19 Blood Culture (Wb) - Anticubital Left Blood Culture - Preliminary No growth in 48 hours. 06/02/22 06:00 Incision/Surgical Site Gram Stain - Final 06/02/22 06:00 Incision/Surgical Site Wound Culture - Preliminary Gram positive shelby Physical Exam Resp normal respiratory effort Cardio regular rate GI GI Narrative: Abdomen: Soft, nondistended, vision well-healed except for superior aspect has a small wick in place, no signs of erythema no peritoneal signs Extremity normal to inspection Assessment & Plan Assessment/Plan (1) Postoperative external wound disruption: (2) Acute on chronic anemia: PLAN: Plan The wound no signs of erythema. At incision continue packing. stop Zosyn as it did grow gram-positive shelby-however never appeared infected more like a seroma and question if it was more contaminate as no active drainage or redness at the site. Patient's current hemoglobin is 8.3--patient is currently on prednisone 80 mg daily for likely hemolysis. Question of whether patient is hemolyzing red blood cells as she had previously got 2 units and hemoglobin was relatively unchanged. Awaiting for the haptoglobin. Doubt EGD or colonoscopy would be of benefit as patient states she is having yellow/puentes stools which if she lost this much blood in the GI tract she would be having diarrhea that was red or tarry in color. Depending on the haptoglobin test that that does not come back low then I do not think would be unreasonable check CT abdomen pelvis for other sources of blood loss at that time. Discussed with Dr. Langston. Judith Whiteside M.D. Pager: [phone] [facility] [address] [place] [address], [address] [place] [id number] Office: [phone]
[2022-06-05 07:39] LABS: Magnesium 1.3 mg/dL (1.6-2.6); Phosphorus 3.1 mg/dL (2.5-4.9)
[2022-06-05 08:20] VITALS: BP 112/57; PULSE 70; RESP 18; TEMP 37.1; O2SAT 96
[2022-06-05] MEDS: busPIRone 5 MG Tablet PO ×2 (08:31→21:35)
[2022-06-05] MEDS: predniSONE 20 MG Tablet 80 MG PO (08:32)
[2022-06-05] MEDS: Furosemide 20 MG Tablet PO (08:33)
[2022-06-05] MEDS: Sertraline 50 MG Tablet 25 MG PO (08:33)
[2022-06-05] MEDS: Folic Acid 1 MG Tablet PO (08:34)
[2022-06-05] MEDS: Potassium Chloride Oral Tablet 20 MEQ 60 MEQ PO (09:01)
[2022-06-05] MEDS: Insulin Glargine-YFGN 100 UNIT/ML Pen 10 UNIT SC (09:03)
[2022-06-05] MEDS: Insulin Lispro 100 UNIT/ML INSULN.PEN SC ×3 (11:39→21:33)
[2022-06-05 12:01] LABS: Bedside Glucose 157 mg/dL (74-106)
[2022-06-05 15:16] VITALS: BP 121/64; PULSE 73; RESP 20; TEMP 36.3; O2SAT 100
[2022-06-05 18:10] LABS: Bedside Glucose 180 mg/dL (74-106)
[2022-06-05 20:00] VITALS: BP 146/55; PULSE 70; RESP 14; TEMP 36.6; O2SAT 100
[2022-06-05] MEDS: Pramipexole Di-HCl 0.125 MG Tablet PO (21:35)
[2022-06-05] MEDS: traZODone 50 MG Tablet 100 MG PO (21:35)
[2022-06-05] MEDS: Atorvastatin Calcium 40 MG Tablet PO (21:35)
[2022-06-05 22:06] LABS: Bedside Glucose 156 mg/dL (74-106)
[2022-06-06 03:00] VITALS: BP 157/56; PULSE 71; RESP 15; TEMP 36.6; O2SAT 99
[2022-06-06 05:28] LABS: Anion Gap 7 (5-15); BUN 22 mg/dL (7-18); Calcium,Total 6.9 mg/dL (8.5-10.1); Chloride 124 mmol/L (98-107); Creatinine, Serum 0.88 mg/dL (0.55-1.02); EST Glomerular Filtration Rate 66 mL/min (>60); Est Glom Filt Rate - Afr Amer 80 mL/min (>60); Estimated Creatinine Clearance 40.33 ml/min; Glucose 124 mg/dL (74-106); Sodium Level 146 mmol/L (136-145)
[2022-06-06] MEDS: Levothyroxine 112 MCG Tablet PO (05:33)
[2022-06-06] MEDS: Menthol/Lanolin/Calamine/Znox 113 GM Tube 1 APPLIC TOPICAL ×3 (05:33→21:59)
[2022-06-06 05:55] LABS: Bedside Glucose 120 mg/dL (74-106)
[2022-06-06] MEDS: Acetaminophen 325 MG Tablet 650 MG PO ×2 (07:23→20:00)
--- NOTE | 2022-06-06 07:47 | CT_ITS ---
EXAM: CT ABDOMEN AND PELVIS WITH INTRAVENOUS CONTRAST CLINICAL INDICATION: Post-op bleeding -- PO and IV TECHNIQUE: Helically acquired images were obtained of the abdomen and pelvis with intravenous contrast. This CT exam was performed using one or more of the following dose reduction techniques: automated exposure control, adjustment of the mA and/or kV according to patient size, and/or use of iterative reconstruction technique. This report was created using [employer] report generation technology. CONTRAST: Oral and amp;amp; IV Gastrografin and amp;amp; 100mL Isovue-370 COMPARISON: CT Abdomen Pelvis dated 05/01/2022 FINDINGS: LOWER THORAX: Small bilateral pleural effusions noted greater in size on the left than right associated with compression atelectasis of the lower lobes. Heart is enlarged. Small pericardial effusion is present. Small hiatal hernia. ABDOMEN: LIVER: Heterogeneous contrast enhancement of the liver likely related to flow artifact. GALLBLADDER AND BILE DUCTS: Cholecystectomy clips are in place. No intra- or extrahepatic biliary ductal dilation. PANCREAS: Normal. No focal cystic or solid mass. SPLEEN: Normal. Normal size without focal cystic or solid mass. ADRENALS: Normal. No nodules. KIDNEYS AND URETERS: Normal. Normal renal size and position. No hydronephrosis. STOMACH AND BOWEL: Surgical changes of right colectomy with ileotransverse colostomy again seen. PELVIS: BLADDER: Normal. REPRODUCTIVE: Uterus is absent. ABDOMEN and PELVIS: INTRAPERITONEAL SPACE: Small volume pelvic ascites. No free air. BONES/JOINTS: No suspicious lytic or blastic abnormality. SOFT TISSUES: Diffuse soft tissue edema suggesting anasarca. Minimal collection of gas again noted along the anterior abdominal wall incision at the level of the epigastrium of uncertain significance. No discrete abdominal or pelvic wall hernia. VASCULATURE: Normal. Abdominal aorta is non-dilated. LYMPH NODES: Normal. No enlarged lymph nodes. CT/Abdomen/Pelvis WITH Contrast IMPRESSION: 1. Anasarca. 2. Cardiomegaly. 3. Bilateral pleural effusions and bibasilar atelectasis. 4. Small volume pelvic ascites. 5. Small hiatal hernia. Electronically Signed: Aníbal Escobar MD at 11:12 EST ,
[2022-06-06 08:35] VITALS: BP 132/67; PULSE 74; RESP 16; TEMP 36.3; O2SAT 100
--- NOTE | 2022-06-06 08:39 | PCM.PN.SRG ---
Subjective Subjective Patient is tolerating diet and having bowel function. Patient's haptoglobin was normal. Objective Data Objective Data Vital Signs: Vital Signs Temp Pulse Resp BP Pulse Ox O2 Del Method 97.3 F L 74 16 132/67 H 100 Room Air 06/06/22 08:35 06/06/22 08:35 06/06/22 08:35 06/06/22 08:35 06/06/22 08:35 06/06/22 08:35 Oxygen Delivery Method Room Air Weight: 161 lb 3.2 oz Body Mass Index (BMI) 29.5 Intake & Output: Intake and Output for Last 24 Hours 06/04/22 06/05/22 06/06/22 23:59 23:59 23:59 Intake Total 3626.58 / 3626.58 1687.25 / 1687.25 329 / 329 Output Total 700 / 700 Balance 2926.58 / 2926.58 1687.25 / 1687.25 329 / 329 Lab / Micro Data Result Diagrams: 06/06/22 09:40 06/06/22 04:40 Labs: Laboratory Results - last 24 hr 06/05/22 11:39: POC Glucose 157 H 06/05/22 17:46: POC Glucose 180 H 06/05/22 21:32: POC Glucose 156 H 06/06/22 04:40: WBC Cancelled, Corrected WBC Cancelled, RBC Cancelled, Hgb Cancelled, Hct Cancelled, MCV Cancelled, MCH Cancelled, MCHC Cancelled, RDW Std Deviation Cancelled, RDW Coeff of Isis Cancelled, Plt Count Cancelled, MPV Cancelled, Immature Gran % (Auto) Cancelled, Neut % (Auto) Cancelled, Lymph % (Auto) Cancelled, [place] % (Auto) Cancelled, Eos % (Auto) Cancelled, Baso % (Auto) Cancelled, Absolute Neuts (auto) Cancelled, Absolute Lymphs (auto) Cancelled, Total Counted Cancelled, Neutrophils % (Manual) Cancelled, Band Neutrophils % Cancelled, Lymphocytes % (Manual) Cancelled, Monocytes % (Manual) Cancelled, Eosinophils % (Manual) Cancelled, Basophils % (Manual) Cancelled, Metamyelocytes % Cancelled, Myelocytes % Cancelled, Promyelocytes % Cancelled, Blast Cells % Cancelled, Plasma Cell % (Manual) Cancelled, Other Cells % Cancelled, Nucleated RBC % Cancelled, Nucleated RBCs/100 WBC Cancelled, Differential Comment Cancelled, Diff Path Review Cancelled, Hypersegmented Neuts Cancelled, Atypical Lymphocytes Cancelled, Reactive Lymphocytes Cancelled, Smudge Cells Cancelled, Toxic Granulation Cancelled, Toxic Vacuolation Cancelled, Dohle Bodies Cancelled, Adry Rods Cancelled, Platelet Estimate Cancelled, Plt Morphology Comment Cancelled, RBC Morphology Cancelled, Polychromasia Cancelled, Hypochromasia Cancelled, Poikilocytosis Cancelled, Basophilic Stippling Cancelled, Anisocytosis Cancelled, Microcytosis Cancelled, Macrocytosis Cancelled, Spherocytes Cancelled, Sickle Cells Cancelled, Target Cells Cancelled, Tear Drop Cells Cancelled, Ovalocytes Cancelled, Stomatocytes Cancelled, Garcia-Ladson Bodies Cancelled, [place] Cells Cancelled, Bite Cells Cancelled, Crenated Cell Cancelled, Acanthocytes (Spur) Cancelled, Rouleaux Cancelled, Schistocytes Cancelled 06/06/22 04:40: Sodium 146 H, Potassium 4.0, Chloride 124 H, Carbon Dioxide 15.0 L, Anion Gap 7, BUN 22 H, Creatinine 0.88, Estim Creat Clear Calc 40.33, Est GFR (MDRD) Af Amer 80, Est GFR (MDRD) Non-Af 66, BUN/Creatinine Ratio 25.0 H, Glucose 124 H, Calcium 6.9 L 06/06/22 05:32: POC Glucose 120 H 06/06/22 05:40: WBC Cancelled, Corrected WBC Cancelled, RBC Cancelled, Hgb Cancelled, Hct Cancelled, MCV Cancelled, MCH Cancelled, MCHC Cancelled, RDW Std Deviation Cancelled, RDW Coeff of Isis Cancelled, Plt Count Cancelled, MPV Cancelled, Immature Gran % (Auto) Cancelled, Neut % (Auto) Cancelled, Lymph % (Auto) Cancelled, [place]enton % (Auto) Cancelled, Eos % (Auto) Cancelled, Baso % (Auto) Cancelled, Absolute Neuts (auto) Cancelled, Absolute Lymphs (auto) Cancelled, Total Counted Cancelled, Neutrophils % (Manual) Cancelled, Band Neutrophils % Cancelled, Lymphocytes % (Manual) Cancelled, Monocytes % (Manual) Cancelled, Eosinophils % (Manual) Cancelled, Basophils % (Manual) Cancelled, Metamyelocytes % Cancelled, Myelocytes % Cancelled, Promyelocytes % Cancelled, Blast Cells % Cancelled, Plasma Cell % (Manual) Cancelled, Other Cells % Cancelled, Nucleated RBC % Cancelled, Nucleated RBCs/100 WBC Cancelled, Differential Comment Cancelled, Diff Path Review Cancelled, Hypersegmented Neuts Cancelled, Atypical Lymphocytes Cancelled, Reactive Lymphocytes Cancelled, Smudge Cells Cancelled, Toxic Granulation Cancelled, Toxic Vacuolation Cancelled, Dohle Bodies Cancelled, Adry Rods Cancelled, Platelet Estimate Cancelled, Plt Morphology Comment Cancelled, RBC Morphology Cancelled, Polychromasia Cancelled, Hypochromasia Cancelled, Poikilocytosis Cancelled, Basophilic Stippling Cancelled, Anisocytosis Cancelled, Microcytosis Cancelled, Macrocytosis Cancelled, Spherocytes Cancelled, Sickle Cells Cancelled, Target Cells Cancelled, Tear Drop Cells Cancelled, Ovalocytes Cancelled, Stomatocytes Cancelled, Garcia-Ladson Bodies Cancelled, [place] Cells Cancelled, Bite Cells Cancelled, Crenated Cell Cancelled, Acanthocytes (Spur) Cancelled, Rouleaux Cancelled, Schistocytes Cancelled Micro: Microbiology 06/02/22 06:00 Incision/Surgical Site Gram Stain - Final 06/02/22 06:00 Incision/Surgical Site Wound Culture - Preliminary Gram positive shelby 06/02/22 06:00 Incision/Surgical Site Anaerobic Culture - Preliminary Checking for anaerobes, further studies to follow. 06/02/22 06:34 Blood Culture (Wb) - Anticubital Left Blood Culture - Preliminary No growth in 48 hours. 06/02/22 06:19 Blood Culture (Wb) - Anticubital Left Blood Culture - Preliminary No growth in 48 hours. Assessment & Plan Assessment/Plan (1) Postoperative external wound disruption: (2) Acute on chronic anemia: PLAN: Plan The wound no signs of erythema. At incision continue packing. Zosyn stopped yesterday. But increased white blood cell count will restart the Zosyn. Hemoglobin currently pending. We will plan for CT abdomen pelvis done for any source of blood loss as patient's haptoglobin is normal. Difficult to get fecal called as patient stool is mixed with the urine in the bedpan. The stool is puentes in color. Judith Whiteside M.D. Pager: [phone] [facility] [address] [place] [address], [address] [place] [address] Office: [phone]
--- NOTE | 2022-06-06 09:48 | PN.HOSP_ITS ---
Subjective Subjective Doing well today, feels much better than when she came in. Repeat hemoglobin is pending Objective Data Objective Data Vital Signs: Vital Signs Temp Pulse Resp BP Pulse Ox O2 Del Method 97.3 F L 74 16 132/67 H 100 Room Air 06/06/22 08:35 06/06/22 08:35 06/06/22 08:35 06/06/22 08:35 06/06/22 08:35 06/06/22 08:35 Oxygen Delivery Method Room Air Weight: 161 lb 3.2 oz Body Mass Index (BMI) 29.5 Intake & Output: Intake and Output for Last 24 Hours 06/05/22 06/06/22 06/07/22 03:59 03:59 03:59 Intake Total 3105.33 / 3105.33 1737.5 / 1737.5 100 / 100 Output Total 700 / 700 Balance 2405.33 / 2405.33 1737.5 / 1737.5 100 / 100 Lab / Micro Data Result Diagrams: 06/05/22 03:30 06/06/22 04:40 Labs: Laboratory Results - last 24 hr 06/05/22 11:39: POC Glucose 157 H 06/05/22 17:46: POC Glucose 180 H 06/05/22 21:32: POC Glucose 156 H 06/06/22 04:40: WBC Cancelled, Corrected WBC Cancelled, RBC Cancelled, Hgb Cancelled, Hct Cancelled, MCV Cancelled, MCH Cancelled, MCHC Cancelled, RDW Std Deviation Cancelled, RDW Coeff of Isis Cancelled, Plt Count Cancelled, MPV Cancelled, Immature Gran % (Auto) Cancelled, Neut % (Auto) Cancelled, Lymph % (Auto) Cancelled, [place] % (Auto) Cancelled, Eos % (Auto) Cancelled, Baso % (Auto) Cancelled, Absolute Neuts (auto) Cancelled, Absolute Lymphs (auto) Cancelled, Total Counted Cancelled, Neutrophils % (Manual) Cancelled, Band Neutrophils % Cancelled, Lymphocytes % (Manual) Cancelled, Monocytes % (Manual) Cancelled, Eosinophils % (Manual) Cancelled, Basophils % (Manual) Cancelled, Metamyelocytes % Cancelled, Myelocytes % Cancelled, Promyelocytes % Cancelled, Blast Cells % Cancelled, Plasma Cell % (Manual) Cancelled, Other Cells % Cancelled, Nucleated RBC % Cancelled, Nucleated RBCs/100 WBC Cancelled, Differential Comment Cancelled, Diff Path Review Cancelled, Hypersegmented Neuts Cancelled, Atypical Lymphocytes Cancelled, Reactive Lymphocytes Cancelled, Smudge Cells Cancelled, Toxic Granulation Cancelled, Toxic Vacuolation Cancelled, Dohle Bodies Cancelled, Adry Rods Cancelled, Platelet Estimate Cancelled, Plt Morphology Comment Cancelled, RBC Morphology Cancelled, Polychromasia Cancelled, Hypochromasia Cancelled, Poikilocytosis Cancelled, Basophilic Stippling Cancelled, Anisocytosis Cancelled, Microcytosis Cancelled, Macrocytosis Cancelled, Spherocytes Cancelled, Sickle Cells Cancelled, Target Cells Cancelled, Tear Drop Cells Cancelled, Ovalocytes Cancelled, Stomatocytes Cancelled, [place] Bodies Cancelled, Amy Cells Cancelled, Bite Cells Cancelled, Crenated Cell Cancelled, Acanthocytes (Spur) Cancelled, Rouleaux Can celled, Schistocytes Cancelled 06/06/22 04:40: Sodium 146 H, Potassium 4.0, Chloride 124 H, Carbon Dioxide 15.0 L, Anion Gap 7, BUN 22 H, Creatinine 0.88, Estim Creat Clear Calc 40.33, Est GFR (MDRD) Af Amer 80, Est GFR (MDRD) Non-Af 66, BUN/Creatinine Ratio 25.0 H, Glucose 124 H, Calcium 6.9 L 06/06/22 05:32: POC Glucose 120 H 06/06/22 05:40: WBC Cancelled, Corrected WBC Cancelled, RBC Cancelled, Hgb Cancelled, Hct Cancelled, MCV Cancelled, MCH Cancelled, MCHC Cancelled, RDW Std Deviation Cancelled, RDW Coeff of Isis Cancelled, Plt Count Cancelled, MPV Cancelled, Immature Gran % (Auto) Cancelled, Neut % (Auto) Cancelled, Lymph % (Auto) Cancelled, [place] % (Auto) Cancelled, Eos % (Auto) Cancelled, Baso % (Auto) Cancelled, Absolute Neuts (auto) Cancelled, Absolute Lymphs (auto) Cancelled, Total Counted Cancelled, Neutrophils % (Manual) Cancelled, Band Neutrophils % Cancelled, Lymphocytes % (Manual) Cancelled, Monocytes % (Manual) Cancelled, Eosinophils % (Manual) Cancelled, Basophils % (Manual) Cancelled, Metamyelocytes % Cancelled, Myelocytes % Cancelled, Promyelocytes % Cancelled, Blast Cells % Cancelled, Plasma Cell % (Manual) Cancelled, Other Cells % Cancelled, Nucleated RBC % Cancelled, Nucleated RBCs/100 WBC Cancelled, Differential Comment Cancelled, Diff Path Review Cancelled, Hypersegmented Neuts Cancelled, Atypical Lymphocytes Cancelled, Reactive Lymphocytes Cancelled, Smudge Cells Cancelled, Toxic Granulation Cancelled, Toxic Vacuolation Cancelled, Dohle Bodies Cancelled, Adry Rods Cancelled, Platelet Estimate Cancelled, Plt Morphology Comment Cancelled, RBC Morphology Cancelled, Polychromasia Cancelled, Hypochrom clary Cancelled, Poikilocytosis Cancelled, Basophilic Stippling Cancelled, Anisocytosis Cancelled, Microcytosis Cancelled, Macrocytosis Cancelled, Spherocytes Cancelled, Sickle Cells Cancelled, Target Cells Cancelled, Tear Drop Cells Cancelled, Ovalocytes Cancelled, Stomatocytes Cancelled, [place] Bodies Cancelled, Amy Cells Cancelled, Bite Cells Cancelled, Crenated Cell Cancelled, Acanthocytes (Spur) Cancelled, Rouleaux Cancelled, Schistocytes Cancelled 06/06/22 08:45: WBC Cancelled, Corrected WBC Cancelled, RBC Cancelled, Hgb Cancelled, Hct Cancelled, MCV Cancelled, MCH Cancelled, MCHC Cancelled, RDW Std Deviation Cancelled, RDW Coeff of Isis Cancelled, Plt Count Cancelled, MPV Cancelled, Immature Gran % (Auto) Cancelled, Neut % (Auto) Cancelled, Lymph % (Auto) Cancelled, [place] % (Auto) Cancelled, Eos % (Auto) Cancelled, Baso % (Auto) Cancelled, Absolute Neuts (auto) Cancelled, Absolute Lymphs (auto) Cancelled, Total Counted Cancelled, Neutrophils % (Manual) Cancelled, Band Neutrophils % Cancelled, Lymphocytes % (Manual) Cancelled, Monocytes % (Manual) Cancelled, Eosinophils % (Manual) Cancelled, Basophils % (Manual) Cancelled, Metamyelocytes % Cancelled, Myelocytes % Cancelled, Promyelocytes % Cancelled, Blast Cells % Cancelled, Plasma Cell % (Manual) Cancelled, Other Cells % Cancelled, Nucleated RBC % Cancelled, Nucleated RBCs/100 WBC Cancelled, Differential Comment Cancelled, Diff Path Review Cancelled, Hypersegmented Neuts Cancelled, Atypical Lymphocytes Cancelled, Reactive Lymphocytes Cancelled, Smudge Cells Cancelled, Toxic Granulation Cancelled, Toxic Vacuolation Cancelled, Dohle Bodies Cancelled, Adry Rods Cancelled, Platelet Estimate Cancelled, Plt Morphology Comment Cancelled, RBC Morphology Cancelled, Polychromasia Cancelled, Hypoc hromasia Cancelled, Poikilocytosis Cancelled, Basophilic Stippling Cancelled, Anisocytosis Cancelled, Microcytosis Cancelled, Macrocytosis Cancelled, Spherocytes Cancelled, Sickle Cells Cancelled, Target Cells Cancelled, Tear Drop Cells Cancelled, Ovalocytes Cancelled, Stomatocytes Cancelled, [place] Bodies Cancelled, [place] Cells Cancelled, Bite Cells Cancelled, Crenated Cell Cancelled, Acanthocytes (Spur) Cancelled, Rouleaux Cancelled, Schistocytes Cancelled Micro: Microbiology 06/02/22 06:00 Incision/Surgical Site Gram Stain - Final 06/02/22 06:00 Incision/Surgical Site Wound Culture - Preliminary Gram positive shelby 06/02/22 06:00 Incision/Surgical Site Anaerobic Culture - Preliminary Checking for anaerobes, further studies to follow. 06/02/22 06:34 Blood Culture (Wb) - Anticubital Left Blood Culture - Preliminary No growth in 48 hours. 06/02/22 06:19 Blood Culture (Wb) - Anticubital Left Blood Culture - Prelimi nary No growth in 48 hours. Physical Exam Narrative General: Alert, Oriented x3, Cooperative, No apparent distress, fatigued HEENT: Atraumatic, PERRLA, EOMI, Normocephalic, pale Oral: Moist Mucosa Neck: Supple, No JVD Lungs: Diminished, Normal air movement, No rhonchi, No wheeze, No rales Cardiovascular: Regular rate, Regular Rhythm, Normal S1, Normal S2, No murmurs Abdomen: Soft, Non Tender, Non-Distended, No Hepato-splenomegaly Extremities: No edema, Capillary Refill Less than 3 Seconds Skin: No rashes, No breakdown Musculoskeletal: No Tenderness to Palpation of Joints or Extremities Neurological: Cranial nerves II-XII grossly intact, Motor Exam 5/5 strength throughout, Sensory exam intact to light touch and pain Psych/Mental Status: Flat affect, Appropriate Assessment & Plan Assessment/Plan (1) Postoperative external wound disruption: (2) Acute on chronic anemia: PLAN: Plan 1.? Concern for postoperative wound infection and possible postoperative bleed ?Possible wound infection surgery primary continue with Vanco and Zosyn ? Direct bilirubin is elevated however LDH is normal and haptoglobin is normal therefore we will discontinue her oral steroids and decrease her insulin ? UA does not show any blood, stool occult is pending ? She has received 4 units of PRBCs which corrected her from 6.4 to 8.3, repeat hemoglobin today is pending ?We will check a CT of her abdomen and pelvis with p.o. and IV contrast to try to delineate where any blood loss might be 2.? Chronic diastolic CHF/HTN/HLD ? Echo with an EF of 65% and stage III diastolic dysfunction she does have mode rate pulmonary hypertension ? Continue with her p.o. Lasix ?We will resume her home blood pressure medications ? Continue with Lipitor 3.? 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 She will need to follow-up with oncology once discharged 4.? GERD ? Stable ? Continue with PPI 5.? Hypothyroidism ? Stable ? Continue with Synthroid DVT: SCDs Charges/Coding Visit Charges Inpatient E&M: 92246 Subs Hosp L2
[2022-06-06 09:53] LABS: Absolute Lymphocyte Count 0.39 X10^3/uL (0.83-4.51); Absolute Neutrophil Count 13.4 X10^3/uL (2.0-7.7); Basophil# 0.01 X10^3/uL; Basophil% 0.1 % (0-1); Hematocrit 28.2 % (37-47); Hemoglobin 8.5 g/dL (12.0-15.0); Lymphocyte # 0.39 X10^3/ul (0.83-4.51); Lymphocyte % 2.7 % (19-41); Mean Corp Hgb Conc 30.1 g/dL (32-36); Mean Corpuscular Hgb 32.3 pg (27.0-32.0); Mean Corpuscular Volume 107.2 fL (81-99); Mean Platelet Vol. 8.8 fl (6.2-12.0); Monocyte# 0.27 X10^3/uL; Monocyte% 1.9 % (0-10); NRBC Flagged by Analyzer 0.2 % (0-5); Neutrophil # 13.35 X10^3/uL (2.7-7.7); Neutrophil % 93.6 % (47-70); POSITIVE DIFFERENTIAL YES; POSITIVE MORPHOLOGY YES; Platelet Count 214 K/mm3 (150-450); RBC Distribution Width CV 22.9 % (11.6-14.6); RBC Distribution Width SD 81.4 fl (35.1-43.9); Red Blood Count 2.63 M/mm3 (4.2-5.4); White Blood Count 14.3 K/mm3 (4.4-11.0)
[2022-06-06 09:54] LABS: Differential Indicated SCAN CRITERIA MET
[2022-06-06] MEDS: Sertraline 50 MG Tablet 25 MG PO (11:09)
[2022-06-06 11:10] VITALS: PULSE 74
[2022-06-06] MEDS: Furosemide 20 MG Tablet PO (11:10)
[2022-06-06] MEDS: busPIRone 5 MG Tablet PO ×2 (11:10→21:55)
[2022-06-06] MEDS: Folic Acid 1 MG Tablet PO (11:10)
[2022-06-06] MEDS: Metoprolol Tartrate 50 MG Tablet PO (11:10)
[2022-06-06] MEDS: Insulin Glargine-YFGN 100 UNIT/ML Pen SC (11:11)
[2022-06-06 15:00] VITALS: BP 130/59; PULSE 76; RESP 16; TEMP 36.7; O2SAT 98
[2022-06-06] MEDS: Insulin Lispro 100 UNIT/ML INSULN.PEN SC (16:34)
[2022-06-06 16:45] LABS: Bedside Glucose 145 mg/dL (74-106)
[2022-06-06 18:46] LABS: Bedside Glucose 154 mg/dL (74-106)
[2022-06-06 20:00] VITALS: BP 140/53; PULSE 65; RESP 16; TEMP 36.6; O2SAT 99
[2022-06-06] MEDS: MELATONIN 10 MG TABLET PO (21:55)
[2022-06-06] MEDS: traZODone 50 MG Tablet 100 MG PO (21:55)
[2022-06-06] MEDS: Atorvastatin Calcium 40 MG Tablet PO (21:55)
[2022-06-06] MEDS: Pramipexole Di-HCl 0.125 MG Tablet PO (21:55)
[2022-06-06 22:20] LABS: Bedside Glucose 134 mg/dL (74-106)
[2022-06-07 05:00] VITALS: BP 146/54; PULSE 66; RESP 14; TEMP 36.4; O2SAT 100
[2022-06-07] MEDS: Menthol/Lanolin/Calamine/Znox 113 GM Tube 1 APPLIC TOPICAL (05:10)
[2022-06-07] MEDS: Levothyroxine 112 MCG Tablet PO (05:10)
[2022-06-07 05:45] LABS: Bedside Glucose 115 mg/dL (74-106)
[2022-06-07 06:48] LABS: Absolute Lymphocyte Count 0.68 X10^3/uL (0.83-4.51); Eosinophil# 0.02 X10^3/uL; Eosinophils% 0.2 % (0-5); Hematocrit 28.5 % (37-47); Hemoglobin 8.7 g/dL (12.0-15.0); Lymphocyte # 0.68 X10^3/ul (0.83-4.51); Lymphocyte % 5.5 % (19-41); Mean Corp Hgb Conc 30.5 g/dL (32-36); Mean Corpuscular Hgb 33.5 pg (27.0-32.0); Mean Corpuscular Volume 109.6 fL (81-99); Mean Platelet Vol. 8.8 fl (6.2-12.0); Monocyte# 0.62 X10^3/uL; NRBC Flagged by Analyzer 0.2 % (0-5); Neutrophil # 10.95 X10^3/uL (2.7-7.7); Neutrophil % 87.9 % (47-70); POSITIVE MORPHOLOGY YES; Platelet Count 195 K/mm3 (150-450); RBC Distribution Width CV 23.1 % (11.6-14.6); RBC Distribution Width SD 89.6 fl (35.1-43.9); White Blood Count 12.5 K/mm3 (4.4-11.0)
[2022-06-07 07:07] LABS: Differential Indicated SCAN CRITERIA MET
[2022-06-07] MEDS: Insulin Glargine-YFGN 100 UNIT/ML Pen SC (08:00)
[2022-06-07] MEDS: Folic Acid 1 MG Tablet PO (08:00)
[2022-06-07 08:05] VITALS: BP 132/66; PULSE 65; RESP 18; TEMP 36.7; O2SAT 100
[2022-06-07] MEDS: Acetaminophen 325 MG Tablet 650 MG PO (08:17)
--- NOTE | 2022-06-07 08:28 | PN.SURG_ITS ---
Subjective Subjective Overall is that she is comfortable. She is not having any abdominal pain. She had a bowel movement with no blood in it. She has no nausea or vomiting. She is tolerating a diet. Objective Data Objective Data Vital Signs: Vital Signs Temp Pulse Resp BP Pulse Ox O2 Del Method 98.0 F 65 18 132/66 H 100 Room Air 06/07/22 08:05 06/07/22 08:05 06/07/22 08:05 06/07/22 08:05 06/07/22 08:05 06/07/22 08:07 Oxygen Delivery Method Room Air Weight: 161 lb 3.2 oz Body Mass Index (BMI) 29.5 Intake & Output: Intake and Output for Last 24 Hours 06/05/22 06/06/22 06/07/22 23:59 23:59 23:59 Intake Total 1687.25 / 1687.25 1661 / 1661 50 / 50 Balance 1687.25 / 1687.25 1661 / 1661 50 / 50 Lab / Micro Data Result Diagrams: 06/07/22 05:55 06/06/22 04:40 Labs: Laboratory Results - last 24 hr 06/06/22 08:45: WBC Cancelled, Corrected WBC Cancelled, RBC Cancelled, Hgb Cancelled, Hct Cancelled, MCV Cancelled, MCH Cancelled, MCHC Cancelled, RDW Std Deviation Cancelled, RDW Coeff of Isis Cancelled, Plt Count Cancelled, MPV Cancelled, Immature Gran % (Auto) Cancelled, Neut % (Auto) Cancelled, Lymph % (Auto) Cancelled, [place] % (Auto) Cancelled, Eos % (Auto) Cancelled, Baso % (Auto) Cancelled, Absolute Neuts (auto) Cancelled, Absolute Lymphs (auto) Cancelled, Total Counted Cancelled, Neutrophils % (Manual) Cancelled, Band Neutrophils % Cancelled, Lymphocytes % (Manual) Cancelled, Monocytes % (Manual) Cancelled, Eosinophils % (Manual) Cancelled, Basophils % (Manual) Cancelled, Metamyelocytes % Cancelled, Myelocytes % Cancelled, Promyelocytes % Cancelled, Blast Cells % Cancelled, Plasma Cell % (Manual) Cancelled, Other Cells % Cancelled, Nucleated RBC % Cancelled, Nucleated RBCs/100 WBC Cancelled, Differential Comment Cancel led, Diff Path Review Cancelled, Hypersegmented Neuts Cancelled, Atypical Lymphocytes Cancelled, Reactive Lymphocytes Cancelled, Smudge Cells Cancelled, Toxic Granulation Cancelled, Toxic Vacuolation Cancelled, Dohle Bodies Cancelled, Adry Rods Cancelled, Platelet Estimate Cancelled, Plt Morphology Comment Cancelled, RBC Morphology Cancelled, Polychromasia Cancelled, Hypochromasia Cancelled, Poikilocytosis Cancelled, Basophilic Stippling Cancelled, Anisocytosis Cancelled, Microcytosis Cancelled, Macrocytosis Cancelled, Spherocytes Cancelled, Sickle Cells Cancelled, Target Cells Cancelled, Tear Drop Cells Cancelled, Ovalocytes Cancelled, Stomatocytes Cancelled, [place] Bodies Cancelled, [place] Cells Cancelled, Bite Cells Cancelled, Crenated Cell Cancelled, Acanthocytes (Spur) Cancelled, Rouleaux Cancelled, Schistocytes Cancelled 06/06/22 09:40: WBC 14.3 H, RBC 2.63 L, Hgb 8.5 L, Hct 28.2 L, MCV 107.2 H, MCH 32.3 H, MCHC 30.1 L, RDW Std Deviation 81.4 H, RDW Coeff of Isis 22.9 H, Plt Count 214, MPV 8.8, Immature Gran % (Auto) 1.700 H, Neut % (Auto) 93.6 H, Lymph % (Auto) 2.7 L, [place] % (Auto) 1.9, Eos % (Auto) 0.0, Baso % (Auto) 0.1, Absolute Neuts (auto) 13.4 H, Absolute Lymphs (auto) 0.39 L, Nucleated RBC % 0.2 06/06/22 11:45: POC Glucose 145 H 06/06/22 16:31: POC Glucose 154 H 06/06/22 21:52: POC Glucose 134 H 06/07/22 05:17: POC Glucose 115 H 06/07/22 05:55: WBC 12.5 H, RBC 2.60 L, Hgb 8.7 L, Hct 28.5 L, MCV 109.6 H, MCH 33.5 H, MCHC 30.5 L, RDW Std Deviation 89.6 H, RDW Coeff of Isis 23.1 H, Plt Count 195, MPV 8.8, Immature Gran % (Auto) 1.400 H, Neut % (Auto) 87.9 H, Lymph % (Auto) 5.5 L, [place] % (Auto) 5.0, Eos % (Auto) 0.2, Baso % (Auto) 0.0, Absolute Neuts (auto) 11.0 H, Absolute Lymphs (auto) 0.68 L, Nucleated RBC % 0.2 Micro: Microbiology 06/02/22 06:00 Incision/Surgical Site Gram Stain - Final 06/02/22 06:00 Incision/Surgical Site Wound Culture - Preliminary Gram positive shelby 06/02/22 06:00 Incision/Surgical Site Anaerobic Culture - Preliminary Checking for anaerobes, further studies to follow. 06/02/22 06:34 Blood Culture (Wb) - Anticubital Left Blood Culture - Preliminary No growth in 48 hours. 06/02/22 06:19 Blood Culture (Wb) - Anticubital Left Blood Culture - Preliminary No growth in 48 hours. Radiography Diagnostic Testing: Radiology Impression Abdomen/Pelvis CT 06/06/22 07:47 IMPRESSION: 1. Anasarca. 2. Cardiomegaly. 3. Bilateral pleural effusions and bibasilar atelectasis. 4. Small volume pelvic ascites. 5. Small hiatal hernia. Electronically Signed: Aníbal Escobar MD at 11:12 EST , Physical Exam Const oriented x3 and no apparent distress Resp normal respiratory effort GI soft to palpation and non-tender Assessment & Plan Assessment/Plan (1) Postoperative external wound disruption: (2) Acute on chronic anemia: PLAN: Plan Patient's hemoglobin appears to be stable in the high 8 range. This is been stable for the last 3 checks. Patient has had no gross bleeding. Patient has CT scan yesterday which did not show any bleed within her abdomen. The patient's haptoglobin came back normal. I discussed this with hematology he does not feel that the patient is hemolytic. At this time the patient's incision appears clean. I think the increasing white count today is due to the steroids that she was started on that have subsequently been stopped. I will send her home on a few days of Augmentin just to be safe but there is no erythema around the incision. Cultures have not grown any recognizable bacteria. Plan to discharge her today. She will follow-up with oncology closely. Addy Teran MD Pager: [facility] [address] [place] [address], [address] [place] [address] Office:
--- NOTE | 2022-06-07 08:32 | DS.PCM_ITS ---
Providers Date of Admission: 06/02/22 Primary Care Physician: Dr. Stanislav Crowe MD Consultations 06/02/22 02:55 Consult: Hospitalist Routine Consulting Provider: Emily Jewell Reason for Consult: post op anemia, concern for wound infection EMERGENT Consult: Yes Notified: Yes Date Notified: 06/02/22 Time Notified: 02:55 Method of Notification: Text Reason For Visit: POST OP ANEMIA, CONCERN FOR WOUND INFECTION Diagnosis Discharge Diagnosis (1) Postoperative external wound disruption: Status: Acute Code(s): T81.31XA - Disruption of external operation (surgical) wound, not elsewhere classified, initial encounter (2) Acute on chronic anemia: Status: Chronic Code(s): D64.9 - Anemia, unspecified Plan Patient's hemoglobin appears to be stable in the high 8 range. This is been stable for the last 3 checks. Patient has had no gross bleeding. Patient has CT scan yesterday which did not show any bleed within her abdomen. The patient's haptoglobin came back normal. I discussed this with hematology he does not feel that the patient is hemolytic. At this time the patient's incision appears clean. I think the increasing white count today is due to the steroids that she was started on that have subsequently been stopped. I will send her home on a few days of Augmentin just to be safe but there is no erythema around the incision. Cultures have not grown any recognizable bacter ia. Plan to discharge her today. She will follow-up with oncology closely. Addy Teran MD Pager: [facility] [address] [place] [address], [address] [place] [address] Office: Medications at Discharge Home Medications folic acid 1 mg tablet 1 mg PO DAILY SUPPLEMENT 08/26/16 omeprazole 20 mg capsule,delayed release 20 mg PO DAILY GERD 08/26/16 trazodone 50 mg tablet 100 mg PO QHS Check with primary doctor 08/26/16 cyanocobalamin (vitamin B-12) 1,000 mcg/mL injection solution 1,000 mcg IM QMONTH SUPPLEMENT 01/24/17 atorvastatin 40 mg tablet 40 mg PO QHS CHOLESTEROL 04/07/22 cholecalciferol (vitamin D3) 50 mcg (2,000 unit) capsule 50 mcg PO DAILY SUPPLEMENT 04/07/22 levothyroxine 112 mcg capsule 112 mcg PO DAILY THYROID 04/07/22 melatonin 5 mg capsule 10 mg PO QHS PRN Sleep 04/07/22 metoprolol succinate 50 mg tablet,extended release 24 hr 50 mg PO DAILY BP 04/07/22 multivitamin (Daily Multi-Vitamin tablet) 1 tab PO DAILY SUPPLEMENT 04/07/22 polyethylene glycol 3350 17 gram/dose oral powder (Miralax) 17 g PO DAILY CONSTIPATION 04/07/22 pramipexole 0.125 mg tablet 0.125 mg PO QHS RESTLESS LEGS 04/07/22 buspirone 5 mg tablet 5 mg PO BID ANXIETY 04/23/22 potassium chloride 20 mEq tablet,extended release 20 meq PO DAILY SUPPLEMENT 04/23/22 sertraline 25 mg tablet 25 mg PO DAILY DEPRESSION 04/23/22 acetaminophen 325 mg tablet (Tylenol) 650 mg PO Q4H PRN PRN PAIN 1-10/FEVER #0 tabs 05/06/22 amoxicillin 500 mg-potassium clavulanate 125 mg tablet (Augmentin) 1 tab PO BID #10 tabs 06/07/22 Hospital Course Summary of Care Provided Hospital Course: Patient was admitted after going to the outside ER for drainage from her incision. She was found to be anemic in the emergency room. She was transferred here and it was thought that she had a draining seroma in the subcutaneous space. She was given 3 units of blood with an inadequate response. She was given 1 more unit and her hemoglobin slowly started to rise after starting on steroids. She seems stable with a hemoglobin in the high 8 range. She is still has no ongoing gross bleeding. Her incision appears clean with some slight drainage but no erythema. Cultures are negative. Patient will be discharged home on 5 days of Augmentin to be safe but I do not believe she has a wound infection. Patient will follow-up with hematology for close hemoglobin monitoring and discussion of chemotherapy. Weight / BMI Weight Weight: 161 lb 3.2 oz Body Mass Index (BMI) 29.5 ABG / Lab / Microbiology Data Result Diagrams: 06/07/22 05:55 06/06/22 04:40 Laboratory: Laboratory Results - last 24 hr 06/06/22 08:45: WBC Cancelled, Corrected WBC Cancelled, RBC Cancelled, Hgb Cancelled, Hct Cancelled, MCV Cancelled, MCH Cancelled, MCHC Cancelled, RDW Std Deviation Cancelled, RDW Coeff of Isis Cancelled, Plt Count Cancelled, MPV Cancelled, Immature Gran % (Auto) Cancelled, Neut % (Auto) Cancelled, Lymph % (Auto) Cancelled, [place] % (Auto) Cancelled, Eos % (Auto) Cancelled, Baso % (Auto) Cancelled, Absolute Neuts (auto) Cancelled, Absolute Lymphs (auto) Cancelled, Total Counted Cancelled, Neutrophils % (Manual) Cancelled, Band Neutrophils % Cancelled, Lymphocytes % (Manual) Cancelled, Monocytes % (Manual) Cancelled, Eosinophils % (Manual) Cancelled, Basophils % (Manual) Cancelled, Metamyelocytes % Cancelled, Myelocytes % Cancelled, Promyelocytes % Cancelled, Blast Cells % Cancelled, Plasma Cell % (Manual) Cancelled, Other Cells % Cancelled, Nucleated RBC % Cancelled, Nucleated RBCs/100 WBC Cancelled, Differential Comment Cancelled, Diff Path Review Cancelled, Hypersegmented Neuts Cancelled, Atypical Lymphocytes Cancelled, Reactive Lymphocytes Cancelled, Smudge Cells Cancelled, Toxic Granulation Cancelled, Toxic Vacuolation Cancelled, Dohle Bodies Cancelled, Adry Rods Cancelled, Platelet Estimate Cancelled, Plt Morphology Comment Cancelled, RBC Morphology Cancelled, Polychromasia Cancelled, Hypochromasia Cancelled, Poikilocytosis Cancelled, Basophilic Stippling Cancelled, Anisocytosis Cancelled, Microcytosis Cancelled, Macrocytosis Cancelled, Spherocytes Cancelled, Sickle Cells Cancelled, Target Cells Cancelled, Tear Drop Cells Cancelled, Ovalocytes Cancelled, Stomatocytes Cancelled, [place] Bodies Cancelled, [place] Cells Cancelled, Bite Cells Cancelled, Crenated Cell Cancelled, Acanthocytes (Spur) Cancelled, Rouleaux Cancelled, Schistocytes Cancelled 06/06/22 09:40: WBC 14.3 H, RBC 2.63 L, Hgb 8.5 L, Hct 28.2 L, MCV 107.2 H, MCH 32.3 H, MCHC 30.1 L, RDW Std Deviation 81.4 H, RDW Coeff of Isis 22.9 H, Plt Count 214, MPV 8.8, Immature Gran % (Auto) 1.700 H, Neut % (Auto) 93.6 H, Lymph % (Auto) 2.7 L, [place] % (Auto) 1.9, Eos % (Auto) 0.0, Baso % (Auto) 0.1, Absolute Neuts (auto) 13.4 H, Absolute Lymphs (auto) 0.39 L, Nucleated RBC % 0.2 06/06/22 11:45: POC Glucose 145 H 06/06/22 16:31: POC Glucose 154 H 06/06/22 21:52: POC Glucose 134 H 06/07/22 05:17: POC Glucose 115 H 06/07/22 05:55: WBC 12.5 H, RBC 2.60 L, Hgb 8.7 L, Hct 28.5 L, MCV 109.6 H, MCH 33.5 H, MCHC 30.5 L, RDW Std Deviation 89.6 H, RDW Coeff of Isis 23.1 H, Plt Count 195, MPV 8.8, Immature Gran % (Auto) 1.400 H, Neut % (Auto) 87.9 H, Lymph % (Auto) 5.5 L, [place] % (Auto) 5.0, Eos % (Auto) 0.2, Baso % (Auto) 0.0, Absolute Neuts (auto) 11.0 H, Absolute Lymphs (auto) 0.68 L, Nucleated RBC % 0.2 Microbiology: Microbiology 06/02/22 06:00 Incision/Surgical Site Gram Stain - Final 06/02/22 06:00 Incision/Surgical Site Wound Culture - Preliminary Gram positive shelby 06/02/22 06:00 Incision/Surgical Site Anaerobic Culture - Preliminary Checking for anaerobes, further studies to follow. 06/02/22 06:34 Blood Culture (Wb) - Anticubital Left Blood Culture - Preliminary No growth in 48 hours. 06/02/22 06:19 Blood Culture (Wb) - Anticubital Left Blood Culture - Preliminary No growth in 48 hours. Radiography Diagnostic Testing: Radiology Impression Abdomen/Pelvis CT 06/06/22 07:47 IMPRESSION: 1. Anasarca. 2. Cardiomegaly. 3. Bilateral pleural effusions and bibasilar atelectasis. 4. Small volume pelvic ascites. 5. Small hiatal hernia. Electronically Signed: Aníbal Escobar MD at 11:12 EST , D/C Instructions Discharge Diet: No restrictions Discharge Activity: Return to Normal Activity and May Shower Weight Bearing Status: Weight bearing as tolerated Call your doctor if your incision/area has: Continuous Slow Oozing, Sudden Increased Bleeding, Increased Pain/ Swelling, Increased Redness, Foul Smelling Discharge and Swelling at the incision site Call your doctor if you observe: Fever of 101 or Higher Remove Dressing in: 2 days (Remove wick from the incision in 2 days) Cleanse incision/area with: Soap & Water Please Follow Up With: Addy Teran MD When: Please call to schedule 1 week follow up appointment. [phone] Meaningful Use Info Meaningful Use Diagnoses (Choose all that apply): None applicable Discharge Plan Admission Admit Date/Time: 06/02/22 02:53 Attending Provider: Gabriel Hernandez Primary Care Provider: Stanislav Crowe Consulting Providers: Emily Jewell ; Lucie Camarillo Instructions Additional Instructions / Restrictions: Please call to schedule an appointment with Dr. Lockett. [phone] Discharge Orders/Prescriptions Prescriptions: New amoxicillin-pot clavulanate [Augmentin] 500-125 mg tablet 1 tab PO BID Qty: 10 0RF Continued multivitamin [Daily Multi-Vitamin] Tablet 1 tab PO DAILY metoprolol succinate 50 mg tablet extended release 24 hr 50 mg PO DAILY Label Comments: TAKE 1 TABLET BY MOUTH ONCE DAILY atorvastatin 40 mg tablet 40 mg PO QHS cholecalciferol (vitamin D3) 50 mcg (2,000 unit) capsule 50 mcg PO DAILY levothyroxine 112 mcg capsule 112 mcg PO DAILY polyethylene glycol 3350 [Miralax] 17 gram/dose powder 17 g PO DAILY melatonin 5 mg capsule 10 mg PO QHS PRN (Reason: Sleep) pramipexole 0.125 mg tablet 0.125 mg PO QHS trazodone 50 MG tablet 100 mg PO QHS Label Comments: SLEEP omeprazole 20 MG capsule 20 mg PO DAILY Label Comments: ACID REFLUX folic acid 1 MG tablet 1 mg PO DAILY Label Comments: SUPPLEMENT cyanocobalamin (vitamin B-12) 1,000 MCG/ML solution 1,000 mcg IM QMONTH potassium chloride 20 mEq Tablet Extended Release 20 meq PO DAILY buspirone 5 mg Tablet 5 mg PO BID sertraline 25 mg Tablet 25 mg PO DAILY acetaminophen [Tylenol] 325 mg Tablet 650 mg PO Q4H PRN PRN (Reason: PAIN 1-10/FEVER) Qty: 0 0RF Referrals / Follow Up: Addy Teran MD [Med Staff - Active Staff] - Stanislav Crowe MD [Primary Care Provider] - Disposition Disposition (needs filled in before D/C Order can be placed): Home, Self Care
[2022-06-07 08:50] LABS: Burr Cells 2+
[2022-06-07 08:54] LABS: Anisocytosis 2+
--- NOTE | 2022-06-07 09:24 | CASEMGMT ---
Addendum entered by Tracy Silva 06/07/22 09:34: INÉS MCBRIDE in to pt room, pt aware of dc and that she will be returning back to [place] today. She is aware that HH will be out to see her. Pt denies further homegoing needs. Original Note: Pt to dc today. Uploaded dc summary via [facility] and sent to [facility] at this time.
--- NOTE | 2022-06-07 09:56 | PHA.DC.MR ---
Pharmacy Service has performed discharge medication reconciliation for this patient. The patient's discharge medication list was reviewed for discrepancies and discrepancies were resolved. Home Medications folic acid 1 mg tablet 1 mg PO DAILY SUPPLEMENT 08/26/16 omeprazole 20 mg capsule,delayed release 20 mg PO DAILY GERD 08/26/16 trazodone 50 mg tablet 100 mg PO QHS Check with primary doctor 08/26/16 cyanocobalamin (vitamin B-12) 1,000 mcg/mL injection solution 1,000 mcg IM QMONTH SUPPLEMENT 01/24/17 atorvastatin 40 mg tablet 40 mg PO QHS CHOLESTEROL 04/07/22 cholecalciferol (vitamin D3) 50 mcg (2,000 unit) capsule 50 mcg PO DAILY SUPPLEMENT 04/07/22 levothyroxine 112 mcg capsule 112 mcg PO DAILY THYROID 04/07/22 melatonin 5 mg capsule 10 mg PO QHS PRN Sleep 04/07/22 metoprolol succinate 50 mg tablet,extended release 24 hr 50 mg PO DAILY BP 04/07/22 multivitamin (Daily Multi-Vitamin tablet) 1 tab PO DAILY SUPPLEMENT 04/07/22 polyethylene glycol 3350 17 gram/dose oral powder (Miralax) 17 g PO DAILY CONSTIPATION 04/07/22 pramipexole 0.125 mg tablet 0.125 mg PO QHS RESTLESS LEGS 04/07/22 buspirone 5 mg tablet 5 mg PO BID ANXIETY 04/23/22 potassium chloride 20 mEq tablet,extended release 20 meq PO DAILY SUPPLEMENT 04/23/22 sertraline 25 mg tablet 25 mg PO DAILY DEPRESSION 04/23/22 acetaminophen 325 mg tablet (Tylenol) 650 mg PO Q4H PRN PRN PAIN 1-10/FEVER #0 tabs 05/06/22 amoxicillin 500 mg-potassium clavulanate 125 mg tablet (Augmentin) 1 tab PO BID #10 tabs 06/07/22
--- NOTE | 2022-06-07 10:17 | CASEMGMT ---
Social Work SVETLANA notified pt ready to discharge. SVETLANA called [facility] to inform pt would be returning to [place] this day. Spoke to Jeanette. Jeanette requested discharge papers be faxed. SVETLANA faxed documents to Jeanette at [phone] SVETLANA also called pt daughter, Saray, who will be transporting pt. Saray stated could be in around 1pm to pick pt up. SVETLANA informed charge nurse and Fire Equipment Inspector Helper of pick-up time. Dispo: Return to [facility]
[2022-06-07 10:41] VITALS: BP 120/49; PULSE 65
[2022-06-07] MEDS: Metoprolol Tartrate 50 MG Tablet PO (10:41)
[2022-06-07] MEDS: busPIRone 5 MG Tablet PO (10:44)
[2022-06-07] MEDS: Furosemide 20 MG Tablet PO (10:44)
[2022-06-07] MEDS: Sertraline 50 MG Tablet 25 MG PO (10:45)
--- NOTE | 2022-06-07 11:41 | PN.HOSP_ITS ---
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 She had no complaints. She had an uneventful night and felt well. Review of systems otherwise negative. She has remained hemodynamically stable. Objective Data Objective Data Vital Signs: Vital Signs Temp Pulse Resp BP Pulse Ox O2 Del Method 98.0 F 65 18 120/49 L 100 Room Air 06/07/22 08:05 06/07/22 10:41 06/07/22 08:05 06/07/22 10:41 06/07/22 08:05 06/07/22 08:07 Oxygen Delivery Method Room Air Weight: 161 lb 3.2 oz Body Mass Index (BMI) 29.5 Intake & Output: Intake and Output for Last 24 Hours 06/05/22 06/06/22 06/07/22 23:59 23:59 23:59 Intake Total 1687.25 / 1687.25 1661 / 1661 50 / 50 Balance 1687.25 / 1687.25 1661 / 1661 50 / 50 Lab / Micro Data Result Diagrams: 06/07/22 05:55 06/06/22 04:40 Labs: Laboratory Results - last 24 hr 06/06/22 11:45: POC Glucose 145 H 06/06/22 16:31: POC Glucose 154 H 06/06/22 21:52: POC Glucose 134 H 06/07/22 05:17: POC Glucose 115 H 06/07/22 05:55: WBC 12.5 H, RBC 2.60 L, Hgb 8.7 L, Hct 28.5 L, MCV 109.6 H, MCH 33.5 H, MCHC 30.5 L, RDW Std Deviation 89.6 H, RDW Coeff of Isis 23.1 H, Plt Count 195, MPV 8.8, Immature Gran % (Auto) 1.400 H, Neut % (Auto) 87.9 H, Lymph % (Auto) 5.5 L, [place] % (Auto) 5.0, Eos % (Auto) 0.2, Baso % (Auto) 0.0, Absolute Neuts (auto) 11.0 H, Absolute Lymphs (auto) 0.68 L, Nucleated RBC % 0.2, Anisocytosis 2+, [place] Cells 2+ Micro: Microbiology 06/02/22 06:19 Blood Culture (Wb) - Anticubital Left Blood Culture - Final No growth in 5 days. 06/02/22 06:34 Blood Culture (Wb) - Anticubital Left Blood Culture - Final No growth in 5 days. 06/02/22 06:00 Incision/Surgical Site Gram Stain - Final 06/02/22 06:00 Incision/Surgical Site Wound Culture - Preliminary Gram positive shelby 06/02/22 06:00 Incision/Surgical Site Anaerobic Culture - Preliminary Checking for anaerobes, further studies to follow. Physical Exam Const alert, oriented x3 and no apparent distress HEENT head/scalp atraumatic, moist oral mucous membranes and oropharynx normal Head and Scalp: normocephalic Mouth: oral and palatal mucosa normal Eyes PERRL, EOMs intact bilaterally and conjunctivae normal Neck no lymphadenopathy, supple and no JVD Resp normal respiratory effort, no retractions, no use of accessory muscles and clear to auscultation bilaterally Cardio regular rate, regular rhythm, S1 normal heart sound, S2 normal heart sound and no murmurs GI normal to inspection, nondistended, normoactive bowel sounds, soft to palpation, non-tender and non-distended Extremity normal to inspection, full ROM and no clubbing, cyanosis or edema Neuro oriented x3, CN's II-XII intact bilaterally, moves all extremities and no focal motor deficits Sensorium / Orientation: awake and alert Motor Exam: strength 5/5 throughout Psych affect normal Assessment & Plan Assessment/Plan (1) Colon cancer: (2) Acute on chronic anemia: (3) Postoperative external wound disruption: PLAN: Plan #Post op wound infection * on iV vancomycin and zosyn as per primary team general surgery * management as per general surgery * #Anemia likely due to post op blood loss * s/p 4 units of PRBCs during this admission * has remained stable. * CT of the abdomen showed no evidence of blood loss. * haptoglobin was normal and there wasn't concern for hemolysis. * #Chronic HFreF * not in exacerbation * on lasix. * #Hypertension; on lasix. 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 * to follow up with oncology on outpatient basis. * #GERD: on PPI #Hypothyroidism; on synthroid DVT prophylaxis: SCDs Disposition: ok for dc home from hospitalist standpoint. Charges/Coding Visit Charges Inpatient E&M: 33163 Subs Hosp L2
[2022-06-07 12:35] VITALS: BP 129/67; PULSE 65; RESP 18; TEMP 36.4; O2SAT 100
[2022-06-07 12:36] LABS: Bedside Glucose 124 mg/dL (74-106)
== END 2022-06-07 13:25 | disposition home health service (06) | DRG 920 ==
PROVIDERS: Family Medicine; Internal Medicine; Internal Medicine Hematology & Oncology; Physician Assistant; Admitting Provider Surgery; PCP Internal Medicine; Visit Provider Surgery
DX: T81.31XA Disruption of external operation (surgical) wound, not elsewhere classified, initial encounter (principal); D69.3 Immune thrombocytopenic purpura; D59.19 Other autoimmune hemolytic anemia; C18.9 Malignant neoplasm of colon, unspecified; C78.7 Secondary malignant neoplasm of liver and intrahepatic bile duct; I50.32 Chronic diastolic (congestive) heart failure; I27.20 Pulmonary hypertension, unspecified; D50.9 Iron deficiency anemia, unspecified; I11.0 Hypertensive heart disease with heart failure; D63.0 Anemia in neoplastic disease; K21.9 Gastro-esophageal reflux disease without esophagitis; E03.9 Hypothyroidism, unspecified; I25.10 Atherosclerotic heart disease of native coronary artery without angina pectoris; E78.00 Pure hypercholesterolemia, unspecified; I25.2 Old myocardial infarction; X58.XXXA Exposure to other specified factors, initial encounter; Z95.1 Presence of aortocoronary bypass graft; Z90.49 Acquired absence of other specified parts of digestive tract; Z79.899 Other long term (current) drug therapy
CPT/HCPCS: 36415; 74177; 80048; 80053; 80202; 81001; 82248; 82607; 82728; 82746; 82962; 83010; 83540; 83550; 83615; 83735; 84100; 84443; 85014; 85018; 85025; 85045; 86644; 86850; 86900; 86901; 86920; 86922; 87040; 87070; 87075; 87077; 87205; 93306; 97110; 97162; 97166; 97530; 97535; J7030; J7040; J7050; P9016; Q9957; Q9967; A4216; C8929; J2916